=== PATIENT | female | born 1940 | race Caucasian/White ===

== ENCOUNTER 2019-12-14 00:25 | Day surgery (SDC) | payer MEDICARE, SELFPAY ==
[2019-12-12 15:14] VITALS: BMI 25.6
[2019-12-14 07:51] VITALS: BMI 25.9
--- NOTE | 2019-12-14 08:09 | PM.HPGS ---
History of Present Illness History of Present Illness Consent: Risks, benefits, and alternatives have been discussed and questions answered. Patient agrees to proceed with procedure. Chief complaint: family hx colon ca Narrative: Shavon Muñoz is a 79 year old female with family history of colon cancer [facility] Past Medical History Medical History Active asthma COPD (chronic obstructive pulmonary disease) Diabetes High blood pressure High cholesterol History of jaundice as a child Surgical History Surgical History History of carpal tunnel surgery History of surgical removal of ganglion cyst History of total right knee replacement Family History Family History Father Hypertension Family history of elevated blood lipids Family history of arthritis Family history of kidney disease Cerebrovascular accident Mother Carcinoma of colon Other Stomach cancer Other Brain cancer Other Family history of gout Family history of malignant neoplasm Family history of seizure disorder Social History Social History Smoking packs per day: 1.5 Smoking cigarettes per day: 30.0 Years smoked: 25 Smoking pack-years: 37.50 Smoking status: Heavy tobacco smoker Tobacco type: cigarettes Second hand tobacco smoke exposure: No Smoking end date: 11/02/98 Alcohol intake: never Substance use: never Substance use type: does not use Gender identity (if verbalized by the patient): Female Meds Home Medications and Allergies Home Medications Medication Instructions Recorded Confirmed Type budesonide-formoterol HFA 160 2 puff INHALATION Q12H 09/07/19 12/14/19 History mcg-4.5 mcg/actuation aerosol inhaler fluticasone propionate 50 1 spray NASAL DAILY 09/07/19 12/14/19 History mcg/actuation nasal spray,suspension montelukast 10 mg tablet 10 mg PO HS 09/07/19 12/14/19 History pravastatin 40 mg tablet 40 mg PO HS 09/07/19 12/14/19 History ciprofloxacin HCl 250 mg tablet 250 mg PO .COMPLEX #3 tablet 12/06/19 12/14/19 Rx metformin 850 mg tablet 850 mg PO BID 12/06/19 12/14/19 History albuterol sulfate [ProAir HFA] 2 puff INHALATION QID PRN 12/12/19 12/14/19 History calcium carbonate-vitamin D3 1 tablet PO BID 12/12/19 12/14/19 History [Calcium 600 + D(3)] levocetirizine 5 mg PO QAM 12/12/19 12/14/19 History kv-re-VY-vit S-jporb-ehkx-zeax 1 tablet PO DAILY 12/12/19 12/14/19 History [Ocuvite Eye Plus Multi] valsartan-hydrochlorothiazide 1 tablet PO QAM 12/12/19 12/14/19 History Allergies Allergy/AdvReac Type Severity Reaction Status Date / Time Cephalosporins Allergy Mild Unknown Verified 12/14/19 07:46 Penicillins Allergy Unknown SWELLING, Verified 12/14/19 07:46 RASH HYDROCODONE BIT AdvReac Mild IRRITABLITY Uncoded 12/14/19 07:46 Exam Resp: Auscultation: clear to auscultation bilaterally Cardio: Rate: regular rate Rhythm: regular rhythm GI: GI Palp: Yes Soft to palpation and No Tenderness to palpation present (GI) Assessment and Plan Assessment and plan (1) Screening for colon cancer: Code(s): Z12.11 - Encounter for screening for malignant neoplasm of colon Status: Acute Assessment and Plan: Colonoscopy with possible biopsy or polypectomy or cautery or injection of substances.
[2019-12-14 08:12] LABS: Glucose Point of Care 138 (65-105)
--- NOTE | 2019-12-14 08:14 | WPDANESEPPF ---
Anes - Initial Pre Proc Eval Procedure: Operation Date: 12/14/19 08:30 Proposed Procedures p Screening Colonoscopy - Doug Florentino MD Date/Time: 12/14/19 08:14 Surgeon: Doug Florentino MD Pre Op Diagnosis: family hx colon ca Patient Data Age: 79 Gender: F Height: 5 ft 6 in Weight: 73 kg Allergies Allergy/AdvReac Type Severity Reaction Status Date / Time Cephalosporins Allergy Mild Unknown Verified 12/14/19 07:46 Penicillins Allergy Unknown SWELLING, Verified 12/14/19 07:46 RASH HYDROCODONE BIT AdvReac Mild IRRITABLITY Uncoded 12/14/19 07:46 Home Medications Medication Instructions Recorded Confirmed Type budesonide-formoterol HFA 160 2 puff INHALATION Q12H 09/07/19 12/14/19 History mcg-4.5 mcg/actuation aerosol inhaler fluticasone propionate 50 1 spray NASAL DAILY 09/07/19 12/14/19 History mcg/actuation nasal spray,suspension montelukast 10 mg tablet 10 mg PO HS 09/07/19 12/14/19 History pravastatin 40 mg tablet 40 mg PO HS 09/07/19 12/14/19 History ciprofloxacin HCl 250 mg tablet 250 mg PO .COMPLEX #3 tablet 12/06/19 12/14/19 Rx metformin 850 mg tablet 850 mg PO BID 12/06/19 12/14/19 History albuterol sulfate [ProAir HFA] 2 puff INHALATION QID PRN 12/12/19 12/14/19 History calcium carbonate-vitamin D3 1 tablet PO BID 12/12/19 12/14/19 History [Calcium 600 + D(3)] levocetirizine 5 mg PO QAM 12/12/19 12/14/19 History lv-or-MJ-vit G-qjegc-gtld-zeax 1 tablet PO DAILY 12/12/19 12/14/19 History [Ocuvite Eye Plus Multi] valsartan-hydrochlorothiazide 1 tablet PO QAM 12/12/19 12/14/19 History Laboratory Tests 12/14/19 08:09 POC Capillary Glucose 138 mg/dl H mg/dl (65-105) Patient hx anesthesia problems: none Family hx anesthesia problems: none PMFSH Past Medical History Medical History Active asthma COPD (chronic obstructive pulmonary disease) Diabetes High blood pressure High cholesterol History of jaundice as a child Surgical History Surgical History History of carpal tunnel surgery History of surgical removal of ganglion cyst History of total right knee replacement Family History Family History Father Hypertension Family history of elevated blood lipids Family history of arthritis Family history of kidney disease Cerebrovascular accident Mother Carcinoma of colon Other Stomach cancer Other Brain cancer Other Family history of gout Family history of malignant neoplasm Family history of seizure disorder Social History Social History Smoking packs per day: 1.5 Smoking cigarettes per day: 30.0 Years smoked: 25 Smoking pack-years: 37.50 Smoking status: Heavy tobacco smoker Tobacco type: cigarettes Second hand tobacco smoke exposure: No Smoking end date: 11/02/98 Alcohol intake: never Substance use: never Substance use type: does not use Gender identity (if verbalized by the patient): Female Anes - Eval Final PreProcedure Day of Procedure 12/14/19 08:14 Patient weight: overweight Heart: regular rate and rhythm Airway: Mallampati scale class II Neurological: alert and oriented Last oral intake: >/= 8 hours ASA classification: III Emergent: no Anesthetic plan: proceed Anesthesia type and monitoring: general GIVS and standard monitoring Informed Consent: The patient's anesthetic plan and its attendant risks and benefits were discussed with the patient/family/POA. Questions were solicited and answers provided to the satisfaction of the patient/family/POA.
[2019-12-14] MEDS: LACTATED RINGERS 1,000 ML 150 ML IV CONT (08:24)
[2019-12-14 08:28] VITALS: BP 123/72; PULSE 66; RESP 14; O2SAT 98
[2019-12-14 09:08] VITALS: BP 109/69; PULSE 69; RESP 14; O2SAT 98
[2019-12-14 09:18] VITALS: BP 113/92; PULSE 77; RESP 14; O2SAT 98
== END 2019-12-14 09:55 | disposition home or self-care (01) ==
PROVIDERS: PCP Internal Medicine; Visit Provider Internal Medicine Gastroenterology
PROC: 0DJD8ZZ Inspection of Lower Intestinal Tract, Via Natural or Artificial Opening Endoscopic (ICD-10-PCS; CPT 45378; principal; 2019-12-14 08:30)
DX: Z12.11 Encounter for screening for malignant neoplasm of colon (principal); D12.5 Benign neoplasm of sigmoid colon; D12.0 Benign neoplasm of cecum; D12.3 Benign neoplasm of transverse colon; K64.8 Other hemorrhoids; Z80.0 Family history of malignant neoplasm of digestive organs; I10 Essential (primary) hypertension; E78.00 Pure hypercholesterolemia, unspecified; E11.9 Type 2 diabetes mellitus without complications; J44.9 Chronic obstructive pulmonary disease, unspecified; Z79.84 Long term (current) use of oral hypoglycemic drugs; F17.210 Nicotine dependence, cigarettes, uncomplicated
CPT/HCPCS: 45385; 45381; 88305; J2704; J7120

== ENCOUNTER 2020-02-08 16:27 | Emergency (ER) | payer MEDICARE, SELFPAY ==
--- NOTE | ~2020-02-08 | XR_ITS ---
XR hip RT 2V w AP pelvis 02/08/2020 16:55 Indication: Right hip pain after fall Procedure: 4 views right hip Comparison: No prior studies for comparison. Findings: Moderate osteoarthritis of the hips. There is severe lumbar spondylosis partially visualize d. No acute fracture or traumatic malalignment. Pelvic rings are intact. Sacral foramen are symmetric . Impression: 1: No acute fracture. Reviewed, dictated and finalized at location A. Impression: 1: No acute fracture.
--- NOTE | ~2020-02-08 | XR_ITS ---
XR chest 2V 02/08/2020 16:55 Indication: Right lower chest pain Procedure: 2 view chest Comparison: Comparison to multiple prior studies sequentially, with oldest reviewed study dated 05/31. Findings: Borderline heart size. There is mild pulmonary vascular indistinctness, consistent with int erstitial edema. Atypical pneumonia is less favored. No pleural effusion or pneumothorax. There is at herosclerosis. No acute osseous abnormality. Impression: 1: Coarse bilateral perihilar and basilar interstitial infiltrates, edema versus atypical pneumonia. Reviewed, dictated and finalized at location A. Impression: 1: Coarse bilateral perihilar and basilar interstitial infiltrates, edema versu s atypical pneumonia.
[2020-02-08 16:55] VITALS: BP 136/78; PULSE 89; RESP 20; TEMP 36.6; O2SAT 98
--- NOTE | 2020-02-08 17:03 | ED.FALL ---
HPI - Fall General Chief Complaint: Fall Stated Complaint: Back Pain Source: patient and RN notes reviewed Mode of arrival: ambulatory Limitations: no limitations History of Present Illness HPI Narrative: The patient, ex-smoker/nondrinker who lives independent living and uses a walker, presents with right low back pain. She states she is seen by pulmonology for CT proven interstitial lung disease, and is on several meds. Patient states she slipped and fell a couple days ago from a standing position landing on indoor furnishings. She complains of mild pain that is worse with motion, better rest, located at her right lower flank; and declines narcotic pain meds . No fever, cough, shortness of breath, calf pain/ edema, numbness/weakness, bowel-bladder symptoms, hematuria/ frequency/ dysuria, bleeding, deformity; there is radiating burning pain only down posterior thigh. She has had prior MRI of the abdomen[2017], for resulting benign renal cysts. Related Data Home Medications Medication Instructions Recorded Confirmed budesonide-formoterol HFA 160 2 puff INHALATION Q12H 09/07/19 02/08/20 mcg-4.5 mcg/actuation aerosol inhaler fluticasone propionate 50 1 spray NASAL DAILY 09/07/19 02/08/20 mcg/actuation nasal spray,suspension montelukast 10 mg tablet 10 mg PO HS 09/07/19 02/08/20 Ocuvite Eye Plus Multi 1 tablet PO DAILY 12/12/19 02/08/20 albuterol sulfate [ProAir HFA] 2 puff INHALATION QID PRN 12/12/19 02/08/20 calcium carbonate-vitamin D3 1 tablet PO BID 12/12/19 02/08/20 [Calcium 600 + D(3)] valsartan-hydrochlorothiazide 1 tablet PO QAM 12/12/19 02/08/20 Allergies Allergy/AdvReac Type Severity Reaction Status Date / Time tramadol Allergy Intermediate Itching Verified 02/13/20 08:05 Cephalosporins Allergy Mild Unknown Verified 12/14/19 07:46 Penicillins Allergy Unknown SWELLING, Verified 12/14/19 07:46 RASH HYDROCODONE BIT AdvReac Mild IRRITABLITY Uncoded 12/14/19 07:46 Review of Systems Review of Systems: Narrative: General/Constitutional: No weight loss,fever Eyes: N0: Redness,discharge Ears/Nose/Throat: No: Epistaxis,ear discharge Respiratory: Denies: Hemoptysis Gastrointestinal: No Vomiting, Bleeding-rectal Skin: No Lumps, eruption Neurologic: No Focal Weakness,Sz Hematologic: Denies: Petechiae/Purpura Psychiatric: No: Suicida ideationl All Other Systems: Reviewed and Negative PMFSH Social History Social History Smoking packs per day: 1.5 Smoking cigarettes per day: 30.0 Years smoked: 25 Smoking pack-years: 37.50 Smoking status: Heavy tobacco smoker Tobacco type: cigarettes Second hand tobacco smoke exposure: No Smoking end date: 11/02/98 Alcohol intake: never Substance use: never Substance use type: does not use Gender identity (if verbalized by the patient): Female Comments At time of signature, agree with nursing past medical, surgical, social and family history. There is no relevant family history pertinent to the presenting complaint Exam Narrative: Exam Narrative: General Appearance: Aged appearing, Well nourished EYE: PERRLA, Conjunctiva clear Ears: External ear normal Nose: Normal nose Mouth/Throat: Normal appearing, Normal lips Neck: Supple Respiratory: Airway patent, kyphoscoliotic, tender right lower ribs -posteriorly Musculoskeletal: Normal strength (no footdrop, 5/5 : EH L-FHL, gastroc-AT, no saddle weakness) Spine/Back: Paraspinal muscle tender (with mild decreased ROM;right posterior superior iliac crest) Skin: Normal color Neurological: A&O x3, CN II-XII intact, Normal reflexes (symmetric trace KJ, AJ) Psychiatric: Normal mood Course Course Emergency Course: Films visualized, interpreted by radiologist, agree, ABnormal see report Vital Signs Vital signs: Vital Signs Temperature 98 F 02/08/20 16:55 Pulse Rate 89 02/08/20 16:55 Respiratory Rate 20
== END 2020-02-08 17:35 | disposition home or self-care (01) ==
PROVIDERS: Emergency Provider Emergency Medicine; PCP Internal Medicine
DX: S20.221A Contusion of right back wall of thorax, initial encounter (principal); W01.0XXA Fall on same level from slipping, tripping and stumbling without subsequent striking against object, initial encounter; M16.11 Unilateral primary osteoarthritis, right hip; F17.210 Nicotine dependence, cigarettes, uncomplicated; E78.00 Pure hypercholesterolemia, unspecified; I10 Essential (primary) hypertension; J44.9 Chronic obstructive pulmonary disease, unspecified; K21.9 Gastro-esophageal reflux disease without esophagitis; Z96.651 Presence of right artificial knee joint
CPT/HCPCS: 71046; 73502; 73521; 99214; G0463

== ENCOUNTER 2021-03-01 14:28 | Outpatient (CLI) | payer MEDICARE, SELFPAY ==
[2021-03-01 13:35] LABS: Add Urine Microscopic? YES; Appearance Urine Clear (Clear); Bilirubin Urine Negative (Negative); Blood Urine Negative (Negative); Color Urine Straw (Yellow); Glucose Urine UA Negative (Negative); Ketones Urine Negative (Negative); Leukocyte Esterase Ur Negative LEU/UL (Negative); Nitrate Urine Negative (Negative); Protein Urine Negative (Negative); RBC Urine 0-2 /hpf (0-2); Specific Grav Ur 1.012 (1.001-1.035); Squamous Epithelial Cell Urine Occasional /hpf (Few); Urobilinogen Urine Negative mg/dL (<2.0); WBC Urine 0-3 /hpf
[2021-03-01 13:37] LABS: Alanine Aminotransferase 14 U/L (4-35); Albumin Level 4.4 g/dL (3.5-5.1); Alkaline Phosphatase 64 U/L (38-126); Anion Gap 5 mmol/L (8-16); Aspartate Amino Transferase 31 U/L (14-36); Bilirubin,Total 0.6 mg/dL (0.2-1.3); Blood Urea Nitrogen 17 mg/dL (7-17); Calcium 10.1 mg/dL (8.4-10.2); Carbon Dioxide 32 mmol/L (22-30); Chloride 100 mmol/L (98-107); Cholesterol 131 mg/dL (0-200); Estimated Glomerular Filt Rate > 60; Glucose 111 mg/dL (65-105); HDL Direct 48 mg/dL; Hemoglobin A1C 6.6 % (<5.7); Potassium 4.2 mmol/L (3.4-5.0); Sodium 137 mmol/L (137-145); Triglycerides 66 mg/dL (<150)
[2021-03-01 13:48] LABS: LDL Cholesterol Direct 68 mg/dL
[2021-03-01 14:08] LABS: Thyroid Stimulating Hormone 0.891 uIU/mL (0.465-4.680)
[2021-03-01 15:12] LABS: Free T4 Free Thyroxine 1.03 ng/mL (0.78-2.19)
[2021-03-01 16:01] LABS: Creatinine Urine 47.8 mg/dL
[2021-03-01 16:04] LABS: MALB Creatinine Ratio 13.4 mg/g (0-30); Microalbumin Urine Random 6.4 mg/L (0-16.7)
[2021-03-04 19:24] LABS: Homocysteine 9.7 umol/L (<10.4)
[2021-03-05 13:12] LABS: Vitamin D 1,25 (OH)2 Total 30 pg/mL (18-72); Vitamin D2 1,25 (OH)2 <8 pg/mL; Vitamin D3 1,25 (OH)2 30 pg/mL
== END 2021-03-01 14:29 | disposition home or self-care (01) ==
LOC: ANHLAB 14:28
PROVIDERS: PCP Internal Medicine; Visit Provider Internal Medicine
DX: E11.9 Type 2 diabetes mellitus without complications (principal); E78.5 Hyperlipidemia, unspecified; J44.9 Chronic obstructive pulmonary disease, unspecified; I10 Essential (primary) hypertension; E55.9 Vitamin D deficiency, unspecified
CPT/HCPCS: 36415; 80053; 80061; 81001; 82043; 82652; 83036; 83090; 84439; 84443

== ENCOUNTER 2021-03-22 12:18 | Outpatient (CLI) | payer MEDICARE, SELFPAY ==
--- NOTE | ~2021-03-22 | XR_ITS ---
EXAMINATION:XR cervical spine 4-5V DATE: 03/22/2021 12:42 INDICATION: Neck pain TECHNIQUE: AP and lateral in neutral, flexion, and extension views of the cervical spine are provided . COMPARISON: None FINDINGS: Alignment is normal. The odontoid is intact. No fracture is identified. The vertebral body heights are maintained. There is severe loss of intervertebral disc space height at C5-6, C6-7, and C 7-T1. No laxity is present with flexion or extension. Prevertebral soft tissues are normal. There is moderate to severe multilevel facet and uncovertebral joint osteoarthritis. Degenerative osteophytes project from the anterior endplates of multiple vertebral bodies. Rim calcifications in the left neck likely represent calcified thyroid nodules. IMPRESSION: 1. Severe cervical spondylosis without acute findings identified. Reviewed, dictated and finalized at location A.
== END 2021-03-22 12:19 | disposition home or self-care (01) ==
PROVIDERS: PCP Internal Medicine; Visit Provider Internal Medicine
DX: M54.2 Cervicalgia (principal); M47.812 Spondylosis without myelopathy or radiculopathy, cervical region
CPT/HCPCS: 72050

== ENCOUNTER → 2021-04-20 00:17 | Outpatient (CLI) | payer MEDICARE, SELFPAY ==
[2021-04-20 19:26] LABS: SARS-CoV-2 RNA PCR Negative
== END ==
PROVIDERS: PCP Internal Medicine; Visit Provider Internal Medicine Gastroenterology
DX: Z01.812 Encounter for preprocedural laboratory examination (principal); Z20.822 Contact with and (suspected) exposure to COVID-19
CPT/HCPCS: C9803; U0003; U0005

== ENCOUNTER 2021-04-24 00:54 | Day surgery (SDC) | payer MEDICARE, SELFPAY ==
[2021-04-18 14:30] VITALS: BMI 24.9
[2021-04-24 08:54] VITALS: BP 149/87; PULSE 76; RESP 18; TEMP 36.2; O2SAT 98; BMI 24.6
[2021-04-24] MEDS: LACTATED RINGERS 1,000 ML 150 ML IV CONT (09:21)
[2021-04-24 09:25] LABS: Glucose Point of Care 125 mg/dl (65-105)
--- NOTE | 2021-04-24 10:14 | WPDANESEPPF ---
Anes - Initial Pre Proc Eval Procedure: Operation Date: 04/24/21 09:45 Proposed Procedures p Screening Colonoscopy - Doug Florentino MD Date/Time: 04/24/21 10:14 Surgeon: Doug Florentino MD Pre Op Diagnosis: Hx of Colon Polyps Patient Data Age: 81 Gender: F Height: 1.65 m Weight: 67.1 kg Last Vital Signs Temp 97.1 F L 04/24/21 08:54 Pulse 76 04/24/21 08:54 Resp 18 04/24/21 08:54 BP 149/87 H 04/24/21 08:54 Pulse Ox 98 04/24/21 08:54 Allergies Allergy/AdvReac Type Severity Reaction Status Date / Time Penicillins Allergy Severe SWELLING, Verified 04/24/21 08:50 RASH tramadol Allergy Intermediate Itching Verified 04/24/21 08:50 Cephalosporins Allergy Mild Itching Verified 04/24/21 08:50 oxycodone AdvReac Irritable Verified 04/24/21 09:16 HYDROCODONE BIT AdvReac Mild IRRITABLITY Uncoded 04/24/21 08:50 Home Medications Medication Instructions Recorded Confirmed Type budesonide-formoterol HFA 160 2 puff INHALATION Q12H 09/07/19 04/24/21 History mcg-4.5 mcg/actuation aerosol inhaler albuterol sulfate [ProAir HFA] 2 puff INHALATION QID PRN 12/12/19 04/24/21 History calcium carbonate-vitamin D3 1 tablet PO BID 12/12/19 04/24/21 History [Calcium 600 + D(3)] metformin 850 mg tablet 850 mg PO BID #180 tablet 04/10/20 04/24/21 Rx valsartan 160 1 tablet PO QAM #90 tablet 04/10/20 04/24/21 Rx mg-hydrochlorothiazide 12.5 mg tablet polyethylene glycol 3350 17 17 g PO DAILY 03/01/21 04/24/21 History gram/dose oral powder fluticasone propionate 50 1 spray NASAL DAILY PRN 03/22/21 04/24/21 History mcg/actuation nasal spray,suspension levocetirizine 5 mg tablet 5 mg PO QAM #90 tablet 04/09/21 04/24/21 Rx montelukast 10 mg tablet 10 mg PO HS #90 tablet 04/12/21 04/24/21 Rx C,E,zinc,copper 28-gkhnc3l-ogd 1 cap PO DAILY 04/18/21 04/24/21 History [Ocuvite Adult 50 Plus] cholecalciferol (vitamin D3) 25 mcg PO DAILY 04/18/21 04/24/21 History [Vitamin D3] nystatin 1 applic TOPICAL BID PRN 04/18/21 04/24/21 History pravastatin 40 mg PO HS 04/18/21 04/24/21 History clindamycin HCl See Rx Instructions .ROUTE .COMPLEX 04/24/21 04/24/21 History Laboratory Tests 04/24/21 09:23 POC Capillary Glucose 125 mg/dl H mg/dl (65-105) Patient hx anesthesia problems: none Family hx anesthesia problems: none PMFSH Past Medical History Medical History Active asthma BMI 25.0-25.9,adult Cervicalgia Constipation COPD (chronic obstructive pulmonary disease) Diabetes DJD (degenerative joint disease), multiple sites Follow up High blood pressure High cholesterol History of jaundice as a child Osteopenia Polyp of colon Vitamin D deficiency Surgical History Surgical History History of carpal tunnel surgery History of surgical removal of ganglion cyst History of total right knee replacement Family History Family History Father Hypertension Family history of elevated blood lipids Family history of arthritis Family history of kidney disease Cerebrovascular accident Mother Carcinoma of colon Other Stomach cancer Other Brain cancer Other Family history of gout Family history of malignant neoplasm Family history of seizure disorder Social History Social History Smoking packs per day: 1.5 Smoking cigarettes per day: 30.0 Years smoked: 30 Smoking pack-years: 45.00 Smoking status: Former smoker Tobacco type: cigarettes Second hand tobacco smoke exposure: No Smoking end date: 11/02/98 Alcohol intake: former Substance use: never Substance use type: does not use [place] Gender identity (if verbalized by the patient): Female Spiritual care concerns: No Anes - Eval Final Pre
[2021-04-24 11:04] VITALS: BP 110/54; PULSE 70; RESP 20; O2SAT 95
[2021-04-24 11:14] VITALS: BP 110/78; PULSE 64; RESP 22; O2SAT 100
[2021-04-24 11:24] VITALS: BP 113/81; PULSE 66; RESP 18; O2SAT 100
[2021-04-24 11:24] LABS: Glucose Point of Care 113 mg/dl (65-105)
== END 2021-04-24 11:48 | disposition home or self-care (01) ==
PROVIDERS: PCP Internal Medicine; Visit Provider Internal Medicine Gastroenterology
PROC: 0DJD8ZZ Inspection of Lower Intestinal Tract, Via Natural or Artificial Opening Endoscopic (ICD-10-PCS; CPT 45378; principal; 2021-04-24 09:45)
DX: Z09 Encounter for follow-up examination after completed treatment for conditions other than malignant neoplasm (principal); D12.0 Benign neoplasm of cecum; K64.8 Other hemorrhoids; K57.30 Diverticulosis of large intestine without perforation or abscess without bleeding; K59.00 Constipation, unspecified; J44.9 Chronic obstructive pulmonary disease, unspecified; E78.00 Pure hypercholesterolemia, unspecified; E55.9 Vitamin D deficiency, unspecified; I10 Essential (primary) hypertension; M85.80 Other specified disorders of bone density and structure, unspecified site; Z79.51 Long term (current) use of inhaled steroids; Z79.84 Long term (current) use of oral hypoglycemic drugs; Z87.891 Personal history of nicotine dependence
CPT/HCPCS: 45381; 45388; 82948; 88305; J2704; J7120

== ENCOUNTER 2021-09-03 14:01 | Outpatient (CLI) | payer MEDICARE, SELFPAY ==
[2021-09-03 14:44] LABS: Basophils Percent Auto 0.3 % (0.2-1.2); Eosinophils Absolute Auto 0.1 K/mm3 (0-0.3); Eosinophils Percent Auto 1.2 % (0-4.4); Hematocrit 40.3 % (37.0-47.0); Hemoglobin 13.3 g/dL (12.0-15.0); Immature Granulocyte Absolute 0.01 K/mm3 (0.00-0.031); Immature Granulocyte Percent A 0.2 % (0-0.5); Lymphocytes Absolute Auto 2.56 K/mm3 (0.9-3.2); Lymphocytes Percent Auto 39.6 % (18.3-44.2); Mean Corpuscular Volume 96.9 fl (80-100); Mean Platelet Volume 9.3 fl (7.4-10.4); Monocytes Absolute Auto 0.5 K/mm3 (0.1-0.6); Neutrophils Absolute Auto 3.3 K/mm3 (1.3-6.7); Neutrophils Percent Auto 51.7 % (45.5-73.1); Platelet Count Result 258 k/mm3 (150-375); Red Blood Count 4.16 M/mm3 (4.2-5.4); Red Cell Distribution Width 12.6 % (11.5-14.5); White Blood Count 6.5 K/mm3 (4.5-10.0)
[2021-09-03 15:04] LABS: Alanine Aminotransferase 20 U/L (4-35); Albumin Level 4.6 g/dL (3.5-5.1); Alkaline Phosphatase 81 U/L (38-126); Anion Gap 7 mmol/L (8-16); Aspartate Amino Transferase 30 U/L (14-36); Bilirubin,Total 0.8 mg/dL (0.2-1.3); Blood Urea Nitrogen 25 mg/dL (7-17); Calcium 10.3 mg/dL (8.4-10.2); Carbon Dioxide 31 mmol/L (22-30); Chloride 103 mmol/L (98-107); Cholesterol 158 mg/dL (0-200); Estimated Glomerular Filt Rate > 60; Glucose 121 mg/dL (65-110); HDL Direct 58 mg/dL; Potassium 4.7 mmol/L (3.4-5.0); Sodium 141 mmol/L (137-145); Triglycerides 54 mg/dL (<150)
[2021-09-03 15:15] LABS: LDL Cholesterol Direct 78 mg/dL
[2021-09-03 15:18] LABS: Free T4 Free Thyroxine 1.11 ng/mL (0.78-2.19)
[2021-09-03 16:17] LABS: Hemoglobin A1C 6.4 % (<5.7)
== END 2021-09-03 14:02 | disposition home or self-care (01) ==
LOC: ANHLAB 14:05
PROVIDERS: PCP Internal Medicine; Visit Provider Internal Medicine
DX: E78.2 Mixed hyperlipidemia (principal); I10 Essential (primary) hypertension; E11.9 Type 2 diabetes mellitus without complications; Z79.899 Other long term (current) drug therapy
CPT/HCPCS: 36415; 80053; 80061; 83036; 84439; 84443; 85025

== ENCOUNTER 2023-09-17 00:47 | Day surgery (SDC) | payer MEDICARE, SELFPAY ==
[2023-09-02 14:21] VITALS: BMI 24.2
--- NOTE | 2023-09-15 13:53 | SUR.PREOP ---
Patient called regarding upcoming procedure. Reviewed preop instructions, appointment times, and procedure prep.
--- NOTE | 2023-09-16 17:05 | PM.HPGS ---
History of Present Illness History of Present Illness Consent: Risks, benefits, and alternatives have been discussed and questions answered. Patient agrees to proceed with procedure. Chief complaint: Other specified disease of esophagus Narrative: Shavon Muñoz is a 83 year old female Was using found to have thickening of the esophagus on imaging study. Recent CT scan showed mild thickening of the distal esophagus. Review of Systems Review of Systems: All systems reviewed & are unremarkable except as noted in HPI and below PMFSH Past Medical History Medical History Active asthma Bilateral carotid bruits BMI 24.0-24.9, adult BMI 25.0-25.9,adult Cervicalgia Constipation COPD (chronic obstructive pulmonary disease) Coronary artery calcification Diabetes DJD (degenerative joint disease), multiple sites Encounter for Medicare annual wellness exam Encounter for routine adult health examination without abnormal findings Esophageal thickening Follow up Hearing loss High blood pressure High cholesterol History of jaundice as a child Hx of colonic polyps Lung nodule Mild ascending aorta dilatation 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 Osteopenia Polyp of colon Pulmonary fibrosis Vision changes Vitamin B12 deficiency Vitamin D deficiency Surgical History Surgical History History of carpal tunnel surgery History of surgical removal of ganglion cyst History of total right knee replacement Family History Family History Father Hypertension Family history of elevated blood lipids Family history of arthritis Family history of kidney disease Cerebrovascular accident Mother Carcinoma of colon Other Stomach cancer Other Brain cancer Other Family history of gout Family history of malignant neoplasm Family history of seizure disorder Social History Social History Smoking packs per day: 1.5 Smoking cigarettes per day: 30.0 Years smoked: 30 Smoking pack-years: 45.00 Smoking status: Former smoker Tobacco type: cigarettes Second hand tobacco smoke exposure: No Smoking end date: 11/02/98 Alcohol intake: never Substance use: never Substance use type: does not use Lack of Transportation: YES Lack of Food: Sometimes True Current Housing: I Have Housing Concerned About Future Housing: Decline to Answer Difficulty Paying Gas/Electric Bills: No Difficulty Paying for Meds: Decline to Answer Currently Unemployed: YES Education: High School Diploma/GED Difficulty w/ Childcare or Family Care: No Living arrangements: alone Additional living arrangements comments: lives in apartment in nursing home community Gender identity (if verbalized by the patient): Female Spiritual care concerns: No Meds Home Medications and Allergies Home Medications Medication Instructions Recorded Confirmed Type budesonide-formoterol HFA 160 2 puff inhalation Q12H 09/07/19 09/17/23 History mcg-4.5 mcg/actuation aerosol inhaler (Symbicort) albuterol sulfate 90 mcg/actuation 2 puff inhalation QID PRN Dyspnea 12/12/19 09/17/23 History aerosol inhaler (ProAir HFA) polyethylene glycol 3350 17 17 g PO DAILY 03/01/21 09/17/23 History gram/dose oral powder (Miralax) fluticasone propionate 50 1 spray intranasal DAILY PRN Sinus 03/22/21 09/17/23 History mcg/actuation nasal Symptoms spray,suspension cholecalciferol (vitamin D3) 25 25 mcg PO DAILY 04/18/21 09/17/23 History mcg (1,000 unit) capsule (Vitamin D3) nystatin 100,000 unit/gram topical 1 applic topical BID PRN Rash 04/18/21 09/17/23 History cream vit C,E,zinc,copper-jhdsn8p 250 1 cap PO DAILY 04/18/21 09/17/23 History mg-lutein 5 mg-zeaxanthin 1 mg capsule (Ocuvite Adult 50 Plus) coffee extract
[2023-09-17 08:55] VITALS: BP 131/60; PULSE 67; RESP 16; TEMP 36.8; O2SAT 99; BMI 24.3
[2023-09-17] MEDS: LACTATED RINGERS 1,000 ML 150 ML IV CONT (09:20)
[2023-09-17 09:22] LABS: Glucose Point of Care 134 mg/dl (65-105)
--- NOTE | 2023-09-17 09:56 | WPDANESEPPF ---
Anes - Initial Pre Proc Eval Procedure: Operation Date: 09/17/23 10:00 Proposed Procedures p Esophagogastroduodenoscopy - Doug Florentino MD Date/Time: 09/17/23 09:56 Surgeon: Doug Florentino MD Pre Op Diagnosis: Other specified disease of esophagus Patient Data Age: 83 Gender: F Height: 1.65 m Weight: 66.4 kg Last Vital Signs Temp 98.2 F 09/17/23 08:55 Pulse 67 09/17/23 08:55 Resp 16 09/17/23 08:55 BP 131/60 09/17/23 08:55 Pulse Ox 99 09/17/23 08:55 O2 Del Method Room Air 09/17/23 08:55 Allergies Allergy/AdvReac Type Severity Reaction Status Date / Time Penicillins Allergy Severe SWELLING, Verified 09/17/23 09:05 RASH tramadol Allergy Intermediate Itching Verified 09/17/23 09:05 Cephalosporins Allergy Mild Itching Verified 09/17/23 09:05 oxycodone AdvReac Irritable Verified 09/17/23 09:05 HYDROCODONE BIT AdvReac Mild IRRITABLITY Uncoded 09/17/23 09:05 Home Medications Medication Instructions Recorded Confirmed Type budesonide-formoterol HFA 160 2 puff inhalation Q12H 09/07/19 09/17/23 History mcg-4.5 mcg/actuation aerosol inhaler (Symbicort) albuterol sulfate 90 mcg/actuation 2 puff inhalation QID PRN Dyspnea 12/12/19 09/17/23 History aerosol inhaler (ProAir HFA) polyethylene glycol 3350 17 17 g PO DAILY 03/01/21 09/17/23 History gram/dose oral powder (Miralax) fluticasone propionate 50 1 spray intranasal DAILY PRN Sinus 03/22/21 09/17/23 History mcg/actuation nasal Symptoms spray,suspension cholecalciferol (vitamin D3) 25 25 mcg PO DAILY 04/18/21 09/17/23 History mcg (1,000 unit) capsule (Vitamin D3) nystatin 100,000 unit/gram topical 1 applic topical BID PRN Rash 04/18/21 09/17/23 History cream vit C,E,zinc,copper-cdpes8o 250 1 cap PO DAILY 04/18/21 09/17/23 History mg-lutein 5 mg-zeaxanthin 1 mg capsule (Ocuvite Adult 50 Plus) coffee extract 100 mg-phosphatidyl 1 cap PO DAILY 09/03/21 09/17/23 History serine 100 mg capsule (Neuriva Original) Diabetic Shoes #1 ea 07/30/22 09/17/23 Rx dapagliflozin propaned 10 1 tablet PO DAILY #90 ea 07/13/23 09/17/23 Rx mg-metformin ER 1,000 mg tablet,ext rel 24hr (Xigduo XR) levocetirizine 5 mg tablet See Rx Instructions .Route 07/13/23 09/17/23 Rx .COMPLEX #90 tabs mecobalamin (vitamin B12) 1,000 1,000 mcg PO DAILY #90 tabs 07/13/23 09/17/23 Rx mcg chewable tablet montelukast 10 mg tablet 10 mg PO HS #90 tabs 07/13/23 09/17/23 Rx pravastatin 40 mg tablet See Rx Instructions .Route 07/13/23 09/17/23 Rx .COMPLEX #90 tabs valsartan 160 mg tablet See Rx Instructions .Route 07/13/23 09/17/23 Rx .COMPLEX #90 tabs OneTouch Ultra Test (blood sugar #100 ea 09/02/23 09/17/23 Rx diagnostic) lancets 30 gauge #100 ea 09/02/23 09/17/23 Rx betamethasone valerate 0.1 % 1 applic topical BID #45 grams 09/09/23 09/17/23 Rx topical cream calcium carbonate 600 mg-vitamin 1 tablet PO DAILY 09/09/23 09/17/23 History D3 5 mcg (200 unit) tablet (Calcium 600 + D(3)) clotrimazole 1 % topical cream 1 applic topical Q12H #45 grams 09/09/23 09/17/23 Rx Laboratory Tests 09/17/23 09:14 POC Capillary Glucose 134 H mg/dl (65-105) Patient hx anesthesia problems: none Family hx anesthesia problems: none Results Review: All pre-operative results and documents have been reviewed as part of the pre-operative evaluation. [facility] Past Medical History Medical History Active asthma Bilateral carotid bruits BMI 24.0-24.9, adult BMI 25.0-25.9,adult Cervicalgia Constipation COPD (chronic obstructive pulmonary disease) Coronary artery calcification Diabetes DJD (degenerative joint disease), multiple sites Encounter for Medicare annual wellness exam Encounter for routine adult health examination without abnormal findings Esophageal thickening Follow up Hearing loss High blood pressure High cholesterol Histo
[2023-09-17 10:02] VITALS: BP 100/59; PULSE 60; RESP 18; O2SAT 95
[2023-09-17 10:12] VITALS: BP 100/68; PULSE 66; RESP 18; O2SAT 99
[2023-09-17 10:22] VITALS: BP 109/61; PULSE 64; RESP 18; O2SAT 99
== END 2023-09-17 10:52 | disposition home or self-care (01) ==
PROVIDERS: PCP Internal Medicine; Referring Provider Internal Medicine; Visit Provider Internal Medicine Gastroenterology
PROC: 0DJ08ZZ Inspection of Upper Intestinal Tract, Via Natural or Artificial Opening Endoscopic (ICD-10-PCS; CPT 43235; principal; 2023-09-17 10:00)
DX: K21.00 Gastro-esophageal reflux disease with esophagitis, without bleeding (principal); K44.9 Diaphragmatic hernia without obstruction or gangrene; J44.9 Chronic obstructive pulmonary disease, unspecified; E11.9 Type 2 diabetes mellitus without complications; E78.00 Pure hypercholesterolemia, unspecified; I10 Essential (primary) hypertension; Z87.891 Personal history of nicotine dependence; E55.9 Vitamin D deficiency, unspecified; K59.00 Constipation, unspecified; E53.8 Deficiency of other specified B group vitamins; Z79.84 Long term (current) use of oral hypoglycemic drugs; Z79.51 Long term (current) use of inhaled steroids
CPT/HCPCS: 43239; 82948; 88305; J2704; J7120

== ENCOUNTER 2024-01-28 13:58 | Outpatient (CLI) | payer MEDICARE, SELFPAY ==
[2024-01-28 15:30] LABS: Appearance Urine Clear (Clear); Bilirubin Urine Negative (Negative); Blood Urine Negative (Negative); Color Urine Yellow (Yellow); Glucose Urine UA 3+ mg/dL (Negative); Ketones Urine Negative (Negative); Leukocyte Esterase Ur Negative LEU/UL (Negative); Nitrate Urine Negative (Negative); Protein Urine Negative (Negative); Urobilinogen Urine 0.2 mg/dL (<2.0); pH Urine 6.5 (5.0-9.0)
[2024-01-28 15:31] LABS: Basophils Percent Auto 0.3 % (0.2-1.2); Eosinophils Absolute Auto 0.1 K/mm3 (0-0.3); Eosinophils Percent Auto 0.7 % (0-4.4); Hematocrit 40.7 % (37.0-47.0); Hemoglobin 12.9 g/dL (12.0-15.0); Immature Granulocyte Absolute 0.01 K/mm3 (0.00-0.031); Immature Granulocyte Percent A 0.1 % (0-0.5); Lymphocytes Absolute Auto 2.12 K/mm3 (0.9-3.2); Lymphocytes Percent Auto 29.7 % (18.3-44.2); Mean Corpuscular HGB Conc 31.7 g/dl (32-36); Mean Corpuscular Hemoglobin 31.5 pg (26-34); Mean Corpuscular Volume 99.5 fl (80-100); Mean Platelet Volume 9.5 fl (7.4-10.4); Monocytes Absolute Auto 0.5 K/mm3 (0.1-0.6); Monocytes Percent Auto 7.1 % (2.6-8.5); Neutrophils Absolute Auto 4.4 K/mm3 (1.3-6.7); Neutrophils Percent Auto 62.1 % (45.5-73.1); Platelet Count Result 228 k/mm3 (150-375); Red Blood Count 4.09 M/mm3 (4.2-5.4); Red Cell Distribution Width 12.6 % (11.5-14.5); White Blood Count 7.2 K/mm3 (4.5-10.0)
[2024-01-28 15:32] LABS: Alanine Aminotransferase 20 U/L (6-35); Albumin Level 4.3 g/dL (3.5-5.1); Alkaline Phosphatase 69 U/L (38-126); Anion Gap 4 mmol/L (4-12); Aspartate Amino Transferase 23 U/L (14-36); Bilirubin,Total 0.8 mg/dL (0.2-1.3); Blood Urea Nitrogen 26 mg/dL (7-17); Calcium 9.9 mg/dL (8.4-10.2); Carbon Dioxide 29 mmol/L (22-30); Chloride 105 mmol/L (98-107); Cholesterol 141 mg/dL (0-200); Estimated Glomerular Filt Rate > 60; Glucose 118 mg/dL (65-110); HDL Direct 48 mg/dL; Sodium 138 mmol/L (137-145); Triglycerides 72 mg/dL (<150)
[2024-01-28 15:34] LABS: Hemoglobin A1C 6.8 % (<5.7)
[2024-01-28 15:38] LABS: Add Urine Microscopic? NO; Specific Grav Ur 1.034 (1.001-1.035)
[2024-01-28 15:44] LABS: LDL Cholesterol Direct 87 mg/dL
[2024-01-28 15:59] LABS: Thyroid Stimulating Hormone 0.905 uIU/mL (0.465-4.680)
[2024-01-28 17:40] LABS: Free T4 Free Thyroxine 1.22 ng/mL (0.78-2.19); Vitamin D 25 Hydroxy 65.6 ng/mL
== END 2024-01-28 13:59 | disposition home or self-care (01) ==
PROVIDERS: PCP Internal Medicine; Visit Provider Internal Medicine
DX: M85.80 Other specified disorders of bone density and structure, unspecified site (principal); E78.2 Mixed hyperlipidemia; E55.9 Vitamin D deficiency, unspecified; E11.9 Type 2 diabetes mellitus without complications; I10 Essential (primary) hypertension; Z79.899 Other long term (current) drug therapy
CPT/HCPCS: 36415; 80053; 80061; 81003; 82306; 83036; 84439; 84443; 85025

== ENCOUNTER 2025-01-07 16:57 | Inpatient (IN) | payer MEDICARE, SELFPAY ==
--- NOTE | ~2025-01-07 | US_ITS ---
Procedure: Duplex Doppler examination of the bilateral carotids. Indication: Carotid bruit Technique: Real time, color-flow and pulse wave Doppler examination of the bilateral carotids was performed. Findings: Gerardo scale ultrasonography of the right neck demonstrated no significant plaque. There was demonstrat ion of normal color-flow and Doppler waveforms within the right common, internal and external carotid arteries. The peak systolic velocities in the right common, internal and external carotid arteries w ere demonstrated to be 83 cm/sec, 83 cm/sec and 62 cm/sec respectively. The right ICA/CCA ratio was 1 .0.The proximal right internal carotid artery demonstrates 0% stenosis relative to the normal distal artery lumen diameter. Gerardo scale sonography of the left neck demonstrated no significant plaque. There was demonstration of normal color-flow and wave forms within the left common, internal and external carotid arteries. The peak systolic velocities in the left common, internal and external carotid arteries were demonstrate d to be 78cm/sec, 48 cm/sec and 124 cm/sec respectively. The left ICA/CCA ratio was 0.6. The proximal left internal carotid artery demonstrates 0% stenosis relative to the normal distal artery lumen yong meter. There was antegrade flow demonstrated in the bilateral vertebral arteries. Impression: No hemodynamically significant stenosis of the bilateral internal carotid arteries. Antegrade flow in the bilateral vertebral arteries. Note: The methodology used is an indirect measurement validated against a direct method (such as the NASCET criteria) that compares diameters at the stenosis to the distal ICA. Reviewed, dictated and finalized at [facility]. Impression: No hemodynamically significant stenosis of the bilateral internal carotid arter ies. Antegrade flow in the bilateral vertebral arteries. Note: The methodology used is an indirect measurement validated against a direct meth od (such as the NASCET criteria) that compares diameters at the stenosis to the distal ICA.
--- NOTE | ~2025-01-07 | XR_ITS ---
XR chest 1V Ordering provider: Armando Roa PA-C History: 84 years Female with . altered mental status . Comparison: February 08, 2020 FINDINGS: MEDIASTINUM: The cardiac silhouette is not enlarged. LUNGS: No infiltrates, effusions or pneumothorax. Bilateral interstitial changes which may indicate f ibrotic changes. Superimposed pneumonia or pneumonitis cannot be excluded. Opacity seen in the right and left midzone which may be summation shadow. Follow-up in 3 months advised. OTHER: No free air under the diaphragm. IMPRESSION: Bilateral interstitial changes suggestive of fibrotic changes. Superimposed pneumonitis and less like ly edema cannot be excluded. Vague opacity in the right and left midzone. Follow-up in 3 months is advised. Reviewed, dictated and finalized at location A. FIGHTER TYPE ONE IMPRESSION: Bilateral interstitial changes suggestive of fibrotic changes. Superimposed pne umonitis and less likely edema cannot be excluded. Vague opacity in the right and left midzone. Follow-up in 3 months is advised.
--- NOTE | ~2025-01-07 | CT_ITS ---
CT cervical spine wo con Ordering provider: Armando Roa PA-C History: . fall . Comparison: None. Technique: CT of the cervical spine was performed without contrast. Sagittal and coronal reformatted images were also obtained and reviewed. Automated exposure control and iterative reconstruction mirna hnique were employed. The dose-length product was 189.78 mGy-cm. FINDINGS: VERTEBRAE: No subluxation or acute fracture. The occipital condyles are intact. DISC SPACES: Narrowing of the disc C5-C6, C6-C7, C7-T1, T1-T2 and T2-T3. Multilevel facet joint disea se. Narrowing of the left foramina at the level of C2-C3. Bilateral narrowing of the foramina at the level of C3-C4, C4-C5, C5-C6 and C6-C7. PARASPINOUS SOFT TISSUES: Calcified lesions in both lobes of the thyroid. IMPRESSION: No acute osseous abnormality cervical spine. Multilevel degenerative disc disease. Multiple nodules in the thyroid with calcification. Further evaluation advised Reviewed, dictated and finalized at location A. K OFF BEARER
--- NOTE | ~2025-01-07 | XR_ITS ---
XR hip BI 2V w AP pelvis Ordering provider: Armando Roa PA-C History: . fall, bilateral hip pain . Comparison: None. FINDINGS: BONES: No acute fracture or dislocation. HIP JOINT SPACES: Bilateral severe osteoarthritic changes. SACROILIAC JOINT SPACES/LUMBAR SPINE: The sacroiliac joint spaces are normal. Mild degenerative barcenas es of the visualized lower lumbar spine. PUBIC SYMPHYSIS: Normal. SOFT TISSUES: Normal. IMPRESSION: No acute osseous abnormality of the bilateral hips and pelvis. Reviewed, dictated and finalized at location A. CTICIDE EXPERT
--- NOTE | ~2025-01-07 | MR_ITS ---
EXAMINATION: MR brain/brain stem wo con DATE: 01/10/2025 15:50 INDICATION: Expressive aphasia. TECHNIQUE: Magnetic resonance imaging (MRI) of the brain and brainstem was performed without intraven ous contrast. COMPARISON: Head CT 01/07/2025 FINDINGS: There are scattered areas of nonspecific increased T2-weighted signal intensity in the cere bral white matter and lucia. There is no intracranial hemorrhage, acute infarction, or abnormal intrac ranial mass lesion. The ventricles are normal in size. The orbits are normal. There is mild mucosal t hickening in the ethmoid sinuses. The mastoid air cells are normal. IMPRESSION: 1. Moderate nonspecific cerebral white matter disease and pontine disease, which likely represents ch ronic small vessel ischemic disease. Reviewed, dictated and finalized at location B. IMPRESSION: 1. Moderate nonspecific cerebral white matter disease and pontine disease, whic h likely represents chronic small vessel ischemic disease.
--- NOTE | ~2025-01-07 | CT_ITS ---
CT brain wo con Ordering provider: Armando Roa PA-C History: 84 years Female with . fall . Comparison: January 23, 2012 Technique: CT of the head without contrast. Radiation reduction technique utilized.The dose-length product was 681 mGy-cm. FINDINGS: BRAIN PARENCHYMA AND CSF SPACES: Mild leukoaraiosis and diffuse cortical atrophy. Mild atheromatous d isease. No midline shift, mass effect or hemorrhage. The brain parenchyma and CSF spaces are otherwi se normal. VISUALIZED PARANASAL SINUSES: Well aerated. MASTOIDS: Well aerated. BONES: The bones appear intact. SOFT TISSUES: Visualized nasopharynx is normal. Superficial soft tissues are normal. IMPRESSION: No acute intracranial findings. Reviewed, dictated and finalized at location A. RANCE SALES SUPERVISOR
--- NOTE | ~2025-01-07 | CT_ITS ---
CTA chest PE protocol Ordering provider: Armando Roa PA-C History: 84 years Female with . syncope, elevated troponin . Comparison: None. Technique: CT angiogram chest was performed following timed intravenous injection of contrast. Thin s lice axial images and reformatted coronal images were obtained. Three dimensional reformatted images of the chest were also obtained using a [employer] workstation. . Automated exposure control and iterati ve reconstruction technique were employed. The dose-length product was 395.23 mGy-cm. 100 mL Omnipaqu e 350 was given IV. Findings: PULMONARY ARTERIES: No pulmonary embolus. VISUALIZED THORACIC INLET: Thyroid nodules with calcification.Further evaluation is advised. MEDIASTINUM: Aorta/coronary arteries: Mild atheromatous disease. Heart/other: The heart is not enlarged. Lymph nodes: No mediastinal or hilar adenopathy. LUNGS: No pulmonary nodules or masses. No effusions. No pneumothorax. Fibrotic changes are seen in the lungs . Superimposed pneumonitis cannot be excluded. VISUALIZED UPPER ABDOMEN: sliding hiatus hernia.Bilateral renal cysts. Otherwise, the visualized uppe r abdomen is normal. MUSCULOSKELETAL: Soft tissues: The superficial soft tissues are normal. Bones: Age appropriate degenerative changes of the spine. IMPRESSION: 1. No pulmonary embolism. 2. Fibrotic changes. Superimposed pneumonitis cannot be excluded. 3. Sliding hiatus hernia. 4. Bilateral renal cysts. Reviewed, dictated and finalized at location A. UNT COLLECTOR
--- NOTE | 2025-01-07 17:04 | ECG_ITS ---
Test Date: 2025-01-07 17:05:42 Measurements Intervals [place] Rate: 84 P: 78 SC: 159 QRS: -19 QRSD: 98 T: 38 QT: 416 QTc: 492 Interpretive Statements SINUS RHYTHM WITH OCCASIONAL VENTRICULAR PREMATURE COMPLEXES WITH OCCASIONAL SUPRAVENTRICULAR PREMATURE COMPLEXES LOW QRS VOLTAGE IN LIMB LEADS NONSPECIFIC T-WAVE ABNORMALITY ABNORMAL ECG No previous ECG available for comparison Electronically Signed On 01-08-2025 07:53:41 CDT by Tushar Patel M.D.
[2025-01-07 17:07] VITALS: BP 142/97; PULSE 85; RESP 16; O2SAT 99
--- NOTE | 2025-01-07 17:21 | ED.FALL ---
HPI - Fall General Chief Complaint: Fall <Armando Roa PA-C - Last Filed: 01/07/25 19:49> Stated Complaint: FALL <Armando Roa PA-C - Last Filed: 01/07/25 19:49> Time Seen by Provider: 01/07/25 17:00 <Armando Roa PA-C - Last Filed: 01/07/25 19:49> Source: patient <Armando Roa PA-C - Last Filed: 01/07/25 19:49> Mode of arrival: EMS <Armando Roa PA-C - Last Filed: 01/07/25 19:49> Limitations: dementia <Armando Roa PA-C - Last Filed: 01/07/25 19:49> History of Present Illness HPI Narrative: This is an 84-year-old female who presents to the ED via EMS from [facility] facility for chief complaint of witnessed fall. History limited by the patient, however family is bedside. Patient's niece states that she found her at the [facility] facility this morning on the ground. She is assuming that she had a fall last night. They are concerned that she has had increasing dementia over the past year. States that she is becoming increasingly forgetful and not taking very good care herself. They were concerned that she has had a couple of falls this week. She states that the patient is in answering her phone and is often not adequately feeding herself. They called EMS today because patient was unable to get up from the ground. Patient states she has pain to the neck and bilateral hips but denies any further sites of pain. Denies chest pain, shortness of breath, fevers, nausea, vomiting. <Armando Roa PA-C - Last Filed: 01/07/25 19:49> Related Data Home Medications: Home Medications ?Medication ?Instructions ?Recorded ?Confirmed ?Last Taken ?Type albuterol sulfate 90 mcg/actuation 2 puff inhalation QID PRN Dyspnea 12/12/19 10/17/24 04/23/21 History aerosol inhaler (ProAir HFA) 2 puff polyethylene glycol 3350 17 17 g PO DAILY 03/01/21 10/17/24 04/23/21 History gram/dose oral powder (Miralax) 17 g fluticasone propionate 50 1 spray intranasal DAILY PRN Sinus 03/22/21 10/17/24 09/17/23 History mcg/actuation nasal Symptoms spray,suspension cholecalciferol (vitamin D3) 25 25 mcg PO DAILY 04/18/21 10/17/24 04/23/21 History mcg (1,000 unit) capsule (Vitamin 25 mcg D3) nystatin 100,000 unit/gram topical 1 applic topical BID PRN Rash 04/18/21 10/17/24 04/23/21 History cream 1 applic calcium 600 mg (as 1 tablet PO DAILY 09/09/23 10/17/24 Unknown History carbonate)-vitamin D3 5 mcg (200 unit) tablet (Calcium 600 + D(3)) <Armando Roa PA-C - Last Filed: 01/07/25 19:49> Allergies/Adverse Reactions: Allergies Allergy/AdvReac Type Severity Reaction Status Date / Time Penicillins Allergy Severe SWELLING, Verified 10/17/24 13:34 RASH tramadol Allergy Intermediate Itching Verified 10/17/24 13:34 Cephalosporins Allergy Mild Itching Verified 10/17/24 13:34 oxycodone AdvReac Irritable Verified 10/17/24 13:34 HYDROCODONE BIT AdvReac Mild IRRITABLITY Uncoded 10/17/24 13:34 <Armando Roa PA-C - Last Filed: 01/07/25 19:49> Review of Systems Review of Systems: All systems as dictated in HPI <Armando Roa PA-C - Last Filed: 01/07/25 19:49> [facility] Past Medical History Medical History: Medical History (Updated 01/07/25 @ 19:37 by Armando Roa PA-C) BMI 23.0-23.9, adult Esophageal thickening Pulmonary fibrosis Vitamin B12 deficiency Lung nodule Coronary artery calcification Mild ascending aorta dilatation Encounter for routine adult health examination without abnormal findings BMI 24.0-24.9, adult Hx of colonic polyps Bilateral carotid bruits Vision changes Hearing loss On shelter drug therapy Encounter for Medicare annual wellness exam Osteopenia Follow up Polyp of colon Constipation Vitamin D deficiency Cervicalgia BMI 25.0-25.9,adult DJD (degenerative joint disease), multiple sites History of jaundice as a child High cholesterol High blood pressure Diabetes COPD (chronic obstructive pulmonary disease) Active asthma <Armando Roa PA-C - Last Filed: 01/07/25 19:49> Surgical History Surgical History: Surgical History History of surgical removal of ganglion cyst History of carpal tunnel surgery History of total right knee replacement <Armando Roa PA-C - Last Filed: 01/07/25 19:49> Family History Family History: Family History Father Hypertension Family history of elevated blood lipids Family history of arthritis Family history of kidney disease Cerebrovascular accident Mother Carcinoma of colon Other Stomach cancer Other Brain cancer Other Family history of gout Family history of malignant neoplasm Family history of seizure disorder <Armando Roa PA-C - Last Filed: 01/07/25 19:49> Social History Social History: Social History Smoking packs per day: 1.5 Smoking cigarettes per day: 30.0 Years smoked: 30 Smoking pack-years: 45.00 Smoking status: Former smoker Tobacco type: cigarettes Second hand tobacco smoke exposure: No Smoking end date: 11/02/98 Alcohol intake: never Substance use: never Substance use type: does not use Lack of Transportation: YES Lack of Food: Sometimes True Current Housing: I Have Housing Concerned About Future Housing: Decline to Answer Difficulty Paying Gas/Electric Bills: No Difficulty Paying for Meds: Decline to Answer Currently Unemployed: YES Education: High School Diploma/GED Difficulty w/ Childcare or Family Care: No Living arrangements: alone Additional living arrangements comments: lives in apartment in long term community Gender identity (if verbalized by the patient): Female Spiritual care concerns: No <Armando Roa PA-C - Last Filed: 01/07/25 19:49> Exam Narrative: GENERAL: Well-appearing, well-nourished, and in no acute distress. HEAD: Normocephalic, atraumatic. EYES: PERRLA and EOMI. ENT: Nares clear, no rhinorrhea or epistaxis. Mucous membranes moist. Oropharynx without tonsillar hypertrophy exudate or other lesions. NECK: Supple. No adenopathy or masses. CHEST: No respiratory distress. Clear to auscultation. No wheezes rales or rhonchi HEART: Regular rate and rhythm. No murmur heard. Normal peripheral pulses. ABDOMEN: Soft, nontender, nondistended, normal active bowel sounds. MSK: Normal range of motion. No edema. Mild paraspinal cervical tenderness. No other midline spinal tenderness throughout. SKIN: Warm, dry, no rash. NEURO: Alert and oriented x2. Oriented to place and person. She is unsure of the year or situation. No focal deficits. Moves all 4 extremities spontaneously. PSYCH: Normal mood and affect. <Armando Roa PA-C - Last Filed: 01/07/25 19:49> Course Vital Signs Vital signs: Vital Signs Pulse Rate 85 01/07/25 17:07 Respiratory Rate 16 01/07/25 17:07 Blood Pressure 142/97 H 01/07/25 17:07 Pulse Oximetry 99 01/07/25 17:07 Pulse Rate 85 01/07/25 17:07 Respiratory Rate 16 01/07/25 17:07 Blood Pressure 142/97 H 01/07/25 17:07 Pulse Oximetry 99 01/07/25 17:07 <Armando Roa PA-C - Last Filed: 01/07/25 19:49> Vital Signs Pulse Rate 85 01/07/25 17:07 Respiratory Rate 16 01/07/25 17:07 Blood Pressure 142/97 H 01/07/25 17:07 Pulse Oximetry 99 01/07/25 17:07 Pulse Rate 85 01/07/25 17:07 Respiratory Rate 16 01/07/25 17:07 Blood Pressure 142/97 H 01/07/25 17:07 Pulse Oximetry 99 01/07/25 17:07 <Bony Graf MD - Last Filed: 01/07/25 19:52> MDM - Fall MDM Narrative Medical decision making narrative: This is a 84-year-old female who presents to the ED for chief complaint of unwitnessed fall from independent living. Vitals are normal. Exam is overall unrevealing. History is limited due to patient's ongoing likely dementia, according to family member who is bedside. Lab work shows elevated troponin of 0.065. BNP slightly elevated as well. Could be an element of heart failure causing the fall last night or this morning. CBC unremarkable except for mild elevation of white count 11.3. Urinalysis shows evidence of dehydration with ketones but no infection. Mildly hypokalemic at 3.3. CK coming back initially at 5:39 a.m.. She was given 1 L of fluids here in the ED. She has had no chest pain to indicate ACS with that elevated troponin, suspect more of a car failure related troponin. Viral swabs negative. Chest CTA: IMPRESSION: 1. No pulmonary embolism. 2. Fibrotic changes. Superimposed pneumonitis cannot be excluded. 3. Sliding hiatus hernia. 4. Bilateral renal cysts. CT head and neck negative for acute findings. Plain films of the hip and pelvis are negative for acute findings as well. Discussed the case with Janine Brennan (Hospitalist MIKAEL), recommends admission to IMU. <Armando Roa PA-C - Last Filed: 01/07/25 19:49> Lab Data Result diagrams: 01/07/25 17:24 01/07/25 17:24 <Armando Roa PA-C - Last Filed: 01/07/25 19:49> Labs: Lab Results 01/07/25 01/07/25 01/07/25 Range/Units 17:24 17:24 17:24 WBC 11.3 H (4.5-10.0) K/mm3 RBC 4.44 (4.2-5.4) M/mm3 Hgb 14.2 (12.0-15.0) g/dL Hct 42.1 (37.0-47.0) % MCV 94.8 (80-100) fl MCH 32.0 (26-34) pg MCHC 33.7 (32-36) g/dl RDW 12.2 (11.5-14.5) % Plt Count 239 (150-375) k/mm3 MPV 9.4 (7.4-10.4) fl Immature Gran % (Auto) 0.4 (0-0.5) % Neut % (Auto) 80.4 H (45.5-73.1) % Lymph % (Auto) 11.9 L (18.3-44.2) % [place] % (Auto) 7.2 (2.6-8.5) % Eos % (Auto) 0.0 (0-4.4) % Baso % (Auto) 0.1 L (0.2-1.2) % Lymph # (Auto) 1.35 (0.9-3.2) K/mm3 [place] # (Auto) 0.8 H (0.1-0.6) K/mm3 Eos # (Auto) 0.0 (0-0.3) K/mm3 Baso # (Auto) 0.0 (0.0-0.1) K/mm3 Abs Immat Gran (auto) 0.04 H (0.00-0.031) K/mm3 Absolute Neuts (auto) 9.1 H (1.3-6.7) K/mm3 Absolute Nucleated RBC 0.000 (0.0-0.012) K/mm3 Nucleated RBC % 0.0 (0.0-0.2) % PT 13.5 (11.1-14.7) Seconds INR 1.0 APTT 27.2 (22.3-36.8) Seconds Sodium 135 L (137-145) mmol/L Potassium 3.3 L (3.4-5.0) mmol/L Chloride 99 (98-107) mmol/L Carbon Dioxide 25 (22-30) mmol/L Anion Gap 11 (4-12) mmol/L BUN 13 D (7-17) mg/dL Creatinine 0.42 L (0.7-1.0) mg/dL Estim Creat Clear Calc Not Reportable Estimated GFR > 60 (59 - ) Glucose 152 H (65-110) mg/dL Calcium 9.7 (8.4-10.2) mg/dL Magnesium Cancelled 1.8 Total Bilirubin 1.9 H (0.2-1.3) mg/dL AST 35 (14-36) U/L ALT 22 (6-35) U/L Alkaline Phosphatase 115 (38-126) U/L Total Creatine Kinase Cancelled 539 H Troponin I 0.065 H* (0.000-0.034) ng/mL NT-Pro-B Natriuret Pep 1760 H (19.9-100) pg/mL Total Protein 8.0 (6.3-8.2) g/dL Albumin 4.5 (3.5-5.1) g/dL Urine Color Yellow (Yellow) Urine Appearance Clear (Clear) Urine pH 7.5 (5.0-9.0) Ur Specific [place] 1.016 (1.001-1.035) Urine Protein 2+ H (Negative) mg/dL Urine Glucose (UA) 2+ H (Negative) mg/dL Urine Ketones 2+ H (Negative) mg/dL Ur Blood (Man) 1+ H (Negative) Urine Nitrate Negative (Negative) Urine Bilirubin Negative (Negative) Urine Urobilinogen 0.2 (<2.0) mg/dL Leukocyte Esterase Rfl Negative (Negative) VENUS/UL Urine RBC 0-2 (0-2) /hpf Urine WBC 0-5 (0-3) /hpf Ur Squamous Epith Cells None seen (Few) /hpf Urine Bacteria None seen /hpf Urine Casts 0-2 Influenza A (RT-PCR) (Negative) Influenza B (RT-PCR) (Negative) RSV (RT-PCR) (Negative) SARS-CoV-2 RNA (RT-PCR) (Negative) 01/07/25 Range/Units 17:46 WBC (4.5-10.0) K/mm3 RBC (4.2-5.4) M/mm3 Hgb (12.0-15.0) g/dL Hct (37.0-47.0) % MCV (80-100) fl MCH (26-34) pg MCHC (32-36) g/dl RDW (11.5-14.5) % Plt Count (150-375) k/mm3 MPV (7.4-10.4) fl Immature Gran % (Auto) (0-0.5) % Neut % (Auto) (45.5-73.1) % Lymph % (Auto) (18.3-44.2) % [place] % (Auto) (2.6-8.5) % Eos % (Auto) (0-4.4) % Baso % (Auto) (0.2-1.2) % Lymph # (Auto) (0.9-3.2) K/mm3 [place] # (Auto) (0.1-0.6) K/mm3 Eos # (Auto) (0-0.3) K/mm3 Baso # (Auto) (0.0-0.1) K/mm3 Abs Immat Gran (auto) (0.00-0.031) K/mm3 Absolute Neuts (auto) (1.3-6.7) K/mm3 Absolute Nucleated RBC (0.0-0.012) K/mm3 Nucleated RBC % (0.0-0.2) % PT (11.1-14.7) Seconds INR APTT (22.3-36.8) Seconds Sodium (137-145) mmol/L Potassium (3.4-5.0) mmol/L Chloride (98-107) mmol/L Carbon Dioxide (22-30) mmol/L Anion Gap (4-12) mmol/L BUN (7-17) mg/dL Creatinine (0.7-1.0) mg/dL Estim Creat Clear Calc Estimated GFR (59 - ) Glucose (65-110) mg/dL Calcium (8.4-10.2) mg/dL Magnesium Total Bilirubin (0.2-1.3) mg/dL AST (14-36) U/L ALT (6-35) U/L Alkaline Phosphatase (38-126) U/L Total Creatine Kinase Troponin I (0.000-0.034) ng/mL NT-Pro-B Natriuret Pep (19.9-100) pg/mL Total Protein (6.3-8.2) g/dL Albumin (3.5-5.1) g/dL Urine Color (Yellow) Urine Appearance (Clear) Urine pH (5.0-9.0) Ur Specific [place] (1.001-1.035) Urine Protein (Negative) mg/dL Urine Glucose (UA) (Negative) mg/dL Urine Ketones (Negative) mg/dL Ur Blood (Man) (Negative) Urine Nitrate (Negative) Urine Bilirubin (Negative) Urine Urobilinogen (<2.0) mg/dL Leukocyte Esterase Rfl (Negative) VENUS/UL Urine RBC (0-2) /hpf Urine WBC (0-3) /hpf Ur Squamous Epith Cells (Few) /hpf Urine Bacteria /hpf Urine Casts Influenza A (RT-PCR) Negative (Negative) Influenza B (RT-PCR) Negative (Negative) RSV (RT-PCR) Negative (Negative) SARS-CoV-2 RNA (RT-PCR) Negative (Negative) <Armando Roa PA-C - Last Filed: 01/07/25 19:49> Lab Results 03/06/2601/07/25 01/07/25 Range/Units 17:24 17:24 17:24 WBC 11.3 H (4.5-10.0) K/mm3 RBC 4.44 (4.2-5.4) M/mm3 Hgb 14.2 (12.0-15.0) g/dL Hct 42.1 (37.0-47.0) % MCV 94.8 (80-100) fl MCH 32.0 (26-34) pg MCHC 33.7 (32-36) g/dl RDW 12.2 (11.5-14.5) % Plt Count 239 (150-375) k/mm3 MPV 9.4 (7.4-10.4) fl Immature Gran % (Auto) 0.4 (0-0.5) % Neut % (Auto) 80.4 H (45.5-73.1) % Lymph % (Auto) 11.9 L (18.3-44.2) % [place] % (Auto) 7.2 (2.6-8.5) % Eos % (Auto) 0.0 (0-4.4) % Baso % (Auto) 0.1 L (0.2-1.2) % Lymph # (Auto) 1.35 (0.9-3.2) K/mm3 [place] # (Auto) 0.8 H (0.1-0.6) K/mm3 Eos # (Auto) 0.0 (0-0.3) K/mm3 Baso # (Auto) 0.0 (0.0-0.1) K/mm3 Abs Immat Gran (auto) 0.04 H (0.00-0.031) K/mm3 Absolute Neuts (auto) 9.1 H (1.3-6.7) K/mm3 Absolute Nucleated RBC 0.000 (0.0-0.012) K/mm3 Nucleated RBC % 0.0 (0.0-0.2) % PT 13.5 (11.1-14.7) Seconds INR 1.0 APTT 27.2 (22.3-36.8) Seconds Sodium 135 L (137-145) mmol/L Potassium 3.3 L (3.4-5.0) mmol/L Chloride 99 (98-107) mmol/L Carbon Dioxide 25 (22-30) mmol/L Anion Gap 11 (4-12) mmol/L BUN 13 D (7-17) mg/dL Creatinine 0.42 L (0.7-1.0) mg/dL Estim Creat Clear Calc Not Reportable Estimated GFR > 60 (59 - ) Glucose 152 H (65-110) mg/dL Calcium 9.7 (8.4-10.2) mg/dL Magnesium Cancelled 1.8 Total Bilirubin 1.9 H (0.2-1.3) mg/dL AST 35 (14-36) U/L ALT 22 (6-35) U/L Alkaline Phosphatase 115 (38-126) U/L Total Creatine Kinase Cancelled 539 H Troponin I 0.065 H* (0.000-0.034) ng/mL NT-Pro-B Natriuret Pep 1760 H (19.9-100) pg/mL Total Protein 8.0 (6.3-8.2) g/dL Albumin 4.5 (3.5-5.1) g/dL Urine Color Yellow (Yellow) Urine Appearance Clear (Clear) Urine pH 7.5 (5.0-9.0) Ur Specific [place] 1.016 (1.001-1.035) Urine Protein 2+ H (Negative) mg/dL Urine Glucose (UA) 2+ H (Negative) mg/dL Urine Ketones 2+ H (Negative) mg/dL Ur Blood (Man) 1+ H (Negative) Urine Nitrate Negative (Negative) Urine Bilirubin Negative (Negative) Urine Urobilinogen 0.2 (<2.0) mg/dL Leukocyte Esterase Rfl Negative (Negative) VENUS/UL Urine RBC 0-2 (0-2) /hpf Urine WBC 0-5 (0-3) /hpf Ur Squamous Epith Cells None seen (Few) /hpf Urine Bacteria None seen /hpf Urine Casts 0-2 Influenza A (RT-PCR) (Negative) Influenza B (RT-PCR) (Negative) RSV (RT-PCR) (Negative) SARS-CoV-2 RNA (RT-PCR) (Negative) 01/07/25 Range/Units 17:46 WBC (4.5-10.0) K/mm3 RBC (4.2-5.4) M/mm3 Hgb (12.0-15.0) g/dL Hct (37.0-47.0) % MCV (80-100) fl MCH (26-34) pg MCHC (32-36) g/dl RDW (11.5-14.5) % Plt Count (150-375) k/mm3 MPV (7.4-10.4) fl Immature Gran % (Auto) (0-0.5) % Neut % (Auto) (45.5-73.1) % Lymph % (Auto) (18.3-44.2) % [place] % (Auto) (2.6-8.5) % Eos % (Auto) (0-4.4) % Baso % (Auto) (0.2-1.2) % Lymph # (Auto) (0.9-3.2) K/mm3 [place] # (Auto) (0.1-0.6) K/mm3 Eos # (Auto) (0-0.3) K/mm3 Baso # (Auto) (0.0-0.1) K/mm3 Abs Immat Gran (auto) (0.00-0.031) K/mm3 Absolute Neuts (auto) (1.3-6.7) K/mm3 Absolute Nucleated RBC (0.0-0.012) K/mm3 Nucleated RBC % (0.0-0.2) % PT (11.1-14.7) Seconds INR APTT (22.3-36.8) Seconds Sodium (137-145) mmol/L Potassium (3.4-5.0) mmol/L Chloride (98-107) mmol/L Carbon Dioxide (22-30) mmol/L Anion Gap (4-12) mmol/L BUN (7-17) mg/dL Creatinine (0.7-1.0) mg/dL Estim Creat Clear Calc Estimated GFR (59 - ) Glucose (65-110) mg/dL Calcium (8.4-10.2) mg/dL Magnesium Total Bilirubin (0.2-1.3) mg/dL AST (14-36) U/L ALT (6-35) U/L Alkaline Phosphatase (38-126) U/L Total Creatine Kinase Troponin I (0.000-0.034) ng/mL NT-Pro-B Natriuret Pep (19.9-100) pg/mL Total Protein (6.3-8.2) g/dL Albumin (3.5-5.1) g/dL Urine Color (Yellow) Urine Appearance (Clear) Urine pH (5.0-9.0) Ur Specific [place] (1.001-1.035) Urine Protein (Negative) mg/dL Urine Glucose (UA) (Negative) mg/dL Urine Ketones (Negative) mg/dL Ur Blood (Man) (Negative) Urine Nitrate (Negative) Urine Bilirubin (Negative) Urine Urobilinogen (<2.0) mg/dL Leukocyte Esterase Rfl (Negative) VENUS/UL Urine RBC (0-2) /hpf Urine WBC (0-3) /hpf Ur Squamous Epith Cells (Few) /hpf Urine Bacteria /hpf Urine Casts Influenza A (RT-PCR) Negative (Negative) Influenza B (RT-PCR) Negative (Negative) RSV (RT-PCR) Negative (Negative) SARS-CoV-2 RNA (RT-PCR) Negative (Negative) <Bony Graf MD - Last Filed: 01/07/25 19:52> Discharge Plan Discharge Clinical Impression: Fall, Elevated troponin <Armando Roa PA-C - Last Filed: 01/07/25 19:49> Patient Disposition: Still a Patient <Armando Roa PA-C - Last Filed: 01/07/25 19:49> Condition: Stable <Armando Roa PA-C - Last Filed: 01/07/25 19:49> Patient Language: Bulgarian <Armando Roa PA-C - Last Filed: 01/07/25 19:49> Prescriptions: No Action fluticasone propionate 50 mcg/actuation spray,suspension 1 spray NASAL DAILY PRN (Reason: Sinus Symptoms) calcium carbonate-vitamin D3 [Calcium 600 + D(3)] 600 mg-5 mcg (200 unit) tablet 1 tablet PO DAILY polyethylene glycol 3350 [Miralax] 17 gram/dose powder 17 g PO DAILY pravastatin 40 mg tablet See Rx Instructions .ROUTE .COMPLEX Qty: 90 3RF Dose Instruction: TAKE 1 TABLET AT BEDTIME Rx Instructions: TAKE 1 TABLET AT BEDTIME Symbicort 160-4.5 mcg/actuation HFA aerosol inhaler 2 puff INHALATION Q12H Qty: 10.2 5RF albuterol sulfate [ProAir HFA] 90 mcg/actuation Hfa Aerosol Inhaler 2 puff INHALATION QID PRN (Reason: Dyspnea) cholecalciferol (vitamin D3) [Vitamin D3] 25 mcg (1,000 unit) Capsule 25 mcg PO DAILY nystatin 100,000 unit/gram cream 1 applic topical BID PRN (Reason: Rash) (DME) Diabetic Shoes 10.5 See Rx Instructions .Route .MEDSUPPLY Qty: 1 0RF Rx Instructions: Needs 1 pair of diabetic shoes. mecobalamin (vitamin B12) 1,000 mcg tablet,chewable 1,000 mcg PO DAILY Qty: 90 1RF (DME) OneTouch Ultra Test Strip See Rx Instructions .Route Qty: 100 3RF Rx Instructions: Check blood sugars once per day (DME) lancets 30 gauge misc See Rx Instructions .Route Qty: 100 3RF Rx Instructions: check blood sugars once per day montelukast 10 mg tablet See Rx Instructions .ROUTE .COMPLEX Qty: 90 3RF Dose Instruction: TAKE 1 TABLET AT BEDTIME Rx Instructions: TAKE 1 TABLET AT BEDTIME (DME) OneTouch Ultra Test Strip See Rx Instructions .Route Qty: 100 3RF Rx Instructions: As directed Xigduo XR 10-1,000 mg tablet, IR - ER, biphasic 24hr See Rx Instructions .ROUTE .COMPLEX Qty: 90 1RF Dose Instruction: TAKE ONE TABLET BY MOUTH DAILY AT 9 AM Rx Instructions: TAKE ONE TABLET BY MOUTH DAILY AT 9 AM clotrimazole 1 % cream 1 applic topical Q12H Qty: 45 1RF betamethasone valerate 0.1 % cream 1 applic topical BID Qty: 45 1RF levocetirizine 5 mg tablet See Rx Instructions .ROUTE .COMPLEX Qty: 90 1RF Dose Instruction: TAKE 1 TABLET EVERY MORNING Rx Instructions: TAKE 1 TABLET EVERY MORNING valsartan 160 mg tablet See Rx Instructions .ROUTE .COMPLEX Qty: 90 3RF Dose Instruction: TAKE 1 TABLET DAILY Rx Instructions: TAKE 1 TABLET DAILY <Armando Roa PA-C - Last Filed: 01/07/25 19:49> Follow-up/Referrals: Tom Hernandez MD [Primary Care Provider] - <Armando Roa PA-C - Last Filed: 01/07/25 19:49> Attestation Supervising Provider Attestation This visit was performed by both a physician and an APC (MIKAEL Roa). I performed all aspects of the MDM as documented. <Bony Graf MD - Last Filed: 01/07/25 19:52>
[2025-01-07 17:33] LABS: Basophils Percent Auto 0.1 % (0.2-1.2); Hematocrit 42.1 % (37.0-47.0); Hemoglobin 14.2 g/dL (12.0-15.0); Immature Granulocyte Absolute 0.04 K/mm3 (0.00-0.031); Immature Granulocyte Percent A 0.4 % (0-0.5); Lymphocytes Absolute Auto 1.35 K/mm3 (0.9-3.2); Lymphocytes Percent Auto 11.9 % (18.3-44.2); Mean Corpuscular HGB Conc 33.7 g/dl (32-36); Mean Corpuscular Volume 94.8 fl (80-100); Mean Platelet Volume 9.4 fl (7.4-10.4); Monocytes Absolute Auto 0.8 K/mm3 (0.1-0.6); Monocytes Percent Auto 7.2 % (2.6-8.5); Neutrophils Absolute Auto 9.1 K/mm3 (1.3-6.7); Neutrophils Percent Auto 80.4 % (45.5-73.1); Platelet Count Result 239 k/mm3 (150-375); Red Blood Count 4.44 M/mm3 (4.2-5.4); Red Cell Distribution Width 12.2 % (11.5-14.5); White Blood Count 11.3 K/mm3 (4.5-10.0)
[2025-01-07 17:38] LABS: Add Urine Microscopic? YES; Appearance Urine Clear (Clear); Bacteria Urine None Seen /hpf; Bilirubin Urine Negative (Negative); Blood Urine 1+ (Negative); Color Urine Yellow (Yellow); Glucose Urine UA 2+ mg/dL (Negative); Ketones Urine 2+ mg/dL (Negative); Leukocyte Esterase Ur Negative LEU/UL (Negative); Nitrate Urine Negative (Negative); Non Pathogenic Casts 0-2; Protein Urine 2+ mg/dL (Negative); RBC Urine 0-2 /hpf (0-2); Specific Grav Ur 1.016 (1.001-1.035); Squamous Epithelial Cell Urine None Seen /hpf (Few); Urobilinogen Urine 0.2 mg/dL (<2.0); WBC Urine 0-5 /hpf (0-3); pH Urine 7.5 (5.0-9.0)
[2025-01-07 17:41] LABS: Alanine Aminotransferase 22 U/L (6-35); Albumin Level 4.5 g/dL (3.5-5.1); Alkaline Phosphatase 115 U/L (38-126); Anion Gap 11 mmol/L (4-12); Aspartate Amino Transferase 35 U/L (14-36); Bilirubin,Total 1.9 mg/dL (0.2-1.3); Blood Urea Nitrogen 13 mg/dL (7-17); Calcium 9.7 mg/dL (8.4-10.2); Carbon Dioxide 25 mmol/L (22-30); Chloride 99 mmol/L (98-107); Creatine Kinase 539 U/L (30-135); Estimated Glomerular Filt Rate > 60; Glucose 152 mg/dL (65-110); Magnesium 1.8 mg/dL (1.6-2.3); Potassium 3.3 mmol/L (3.4-5.0); Sodium 135 mmol/L (137-145)
[2025-01-07 17:42] LABS: Prothrombin Time 13.5 Seconds (11.1-14.7)
[2025-01-07 17:43] LABS: Partial Thromboplastin Time 27.2 Seconds (22.3-36.8)
--- OUTSIDE RECORDS SUMMARY | 2025-01-07 17:53 | XMS_ITS | Continuity of Care Document ---
Author Organization [facility] Address [address] [place] [address] Phone Care Team Providers Care Design Agent Name Role Phone Neeraj Cummings Unavailable Unavailable Procedures Procedure Date Eye Exam & Treatment Refraction Advance Directives Directive Yes / No Effective Date File Name No Information Encounters Encounter Description Practice Location Reason(s) For Visit Diagnoses Date Provider Providers Copied on Encounter [facility], [address] [place], [place], [id number], [place] tel:[phone] SEC [facility] No Information [phone] Em[address] Pickard. [address] , [address], [place], [address], [place]. tel:[phone] Family History Family Member Type Diagnosis Age At Onset No Information Payers Payer name Insurance type Covered constitution party ID Authoriza tion(s) Medicare [facility] [id number] Social History Type Description Quantity Date Captured Comments Sex Female Smoking Status No Information Chief Complaint And Reason For Visit No Information Reason For Referral Reason For Referral No Information History Of Present Illness Encounter Date Complaint History Of Prese nt Illness No Information Functional Status Date Functional Assessmen t No Information Instructions Date Instruction Additional Infor mation No Information Assessments Type Assessment Date No Information Patient Care Teams Name Effective Dates (start - stop) Status Members No Information
--- OUTSIDE RECORDS SUMMARY | 2025-01-07 17:53 | XMS_ITS | Clinical Summary ---
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 Gender Identity Not on file Sexual Orientation Not on file Plan of Treatment Health Maintenance Due Date Last Done Comments DTaP, Tdap and Td Vaccines (1 - Tdap) 1960 Zoster Vaccines (1 of 2) 1991 Annual Medicare Wellness Visit 2006 RSV Immunization or 60+ Years (1 - 1-dose 75+ series) 2016 COVID-19 Vaccine ( season) 2024 Influenza Adult (#1) 2024 11/08/2019, 07/29/2018, 08/04/2017, Additional history exists PHQ-2 (Physician [place]) 11/02/2024 Pneumococcal Vaccine: 65+ Years Completed 08/20/2018, 08/13/2017, 11/03/2013 Dexa Scan (General) Completed 03/19/2021 Meningococcal B Vaccine Aged Out No l onger eligible based on patient's age to complete this topic Meningococcal Vaccine Aged Out No ben mathew eligible based on patient's age to complete this topic RSV Immunizations Under 20 Months Aged Out No longer eligible based on patient's age to complete this topic Procedures Procedure Name Priority Date/Time Associated Diagnosis Comments BONE DENSITY/DEXA Routine 03/19/2021 10: 36 AM CDT Postmenopausal from Last 3 Months or Most Recently Relevant to Health Maintenance Results * BONE DENSITY/DEXA (03/19/2021 10:36 AM CDT) Anatomical Region Laterality Modality Bone Bone Density 03/19/2021 11:5 8 AM CDT Impressions 03/19/2021 11:59 AM CDT FINDINGS AND IMPRESSION: Examination performed on a [employer] Discovery SL .: LUMBAR SPINE L2-L4: 1. BMD: 1.269 g/cm2. 2. T score: 1.7. Previous T score: No previous available. 3. WHO classification: Above normal young adult range. 4. Fracture risk: Negligible. LEFT FEMORAL NECK: 1. BMD: 0.712 g/cm2. 2. T score: -1.2. Previous T score: No previous available. 3. WHO classification: Mild osteopenia. 4. Fracture risk: Very low. Voice recognition software utilized. Referred By: TOM ROSSI Interpreted By: Olman Santos, 03/19/2021 11:58 AM Narrative 03/19/2021 11:59 AM CDT Examination: BONE DENSITY/DEXA Exam date/time: 03/19/2021 10:25 AM Comparison studies:No previous available. Clinical history: Postmenopausal . Screening Procedure Note Olman Santos MD - 03/19/2021 Examination: BONE DENSITY/DEXA Exam date/time: 03/19/2021 10:25 AM Comparison studies:No previous available. Clinical history: Postmenopausal . Screening FINDINGS AND IMPRESSION: Examination performed on a [employer] Discovery SL .: LUMBAR SPINE L2-L4: 1. BMD: 1.269 g/cm2. 2. T score: 1.7. Previous T score: No previous available. 3. WHO classification: Above normal young adult range. 4. Fracture risk: Negligible. LEFT FEMORAL NECK: 1. BMD: 0.712 g/cm2. 2. T score: -1.2. Previous T score: No previous available. 3. WHO classification: Mild osteopenia. 4. Fracture risk: Very low. Voice recognition software utilized. Referred By: TOM ROSSI Interpreted By: Olman Santos, 03/19/2021 11:58 AM Tom Rossi MD DEXA Final Result from Last 3 Months or Most Recently Relevant to Health Maintenance Insurance [facility] Care Teams Bark Peeler Relationship Specialty Start Date End Date Tom Rossi MD PCP - General INTERNAL MEDICINE 03/19/19
--- OUTSIDE RECORDS SUMMARY | 2025-01-07 17:53 | XMS_ITS | Patient Health Summary ---
Author Organization [facility] Address [address] [address] Care Team Providers Care Personal Coach Name Role Phone Unavailable Primary Care Provider Unavailabl e Note from [facility],non-owned Affiliates and Associated Physician Practices is amultiple site organization consisting of ambulatory clinics and hospital sitesin [place], [place], [place] and [place]. This disclosure is being madepursuant to the Care Everywhere program and may not contain all information available regarding this patient. Last updated 18.[facility] Immunizations * INFLUENZA VACCINE, HIGH-DOSE, QUADR. (FLUZONE HIGH-DOSE QUADRIVALENT; 65Y+), 0.7 ML (HD-IIV4)(Given 08/27/2016) Social History Tobacco Use Types Packs/Day Years Used Date Smoking Tobacco: Never Assessed Sex and Gender Information Value Date Recorded Sex Assigned at Not on file Gender Identity Not on file Sexual Orientation Not on file
--- OUTSIDE RECORDS SUMMARY | 2025-01-07 17:53 | XMS_ITS | Clinical Summary ---
Author Organization [facility] Address [address] [place] [address] Care Team Providers Care Us Customs And Border Officer Name Role Phone Unavailable Primary Care Provider Unavailabl e Source Comments [facility],non-owned Affiliates and Associated Physician Practices is amultiple site organization consisting of ambulatory clinics and hospital sitesin [place], [place], [place] and [place]. This disclosure is being madepursuant to the Care Everywhere program and may not contain all information available regarding this patient. Last updated 18.[facility] Immunizations Name Administration Dates Next Due INFLUENZA VACCINE, HIGH-DOSE , QUADR. (FLUZONE HIGH-DOSE QUADRIVALENT; 65Y+), 0.7 ML (HD-IIV4) 08/27/2016 Social History Tobacco Use Types Packs/Day Years Used Date Smoking Tobacco: Never Assessed Sex and Gender Information Value Date Recorded Sex Assigned at Not on file Gender Identity Not on file Sexual Orientation Not on file Plan of Treatment Health Maintenance Due Date Last Done Comments BONE DENSITY TESTING 1941 MEDICARE AWV 12 MONTHS 1941 DTAP/TDAP/TD VACCINES (1 - Tdap) 1960 PNEUMOCOCCAL VACCINE 50+ (1 of 1 - PCV) 1991 ZOSTER VACCINE (1 of 2) 1991 Respiratory Syncytial Virus (RSV) Vaccine Pt: or over 60 yrs (1 - 1-dose 75+ series) 2016 COVID-19 VACCINE (2023-2 5 season) 2024 INFLUENZA VACCINE (#1) 2024 08/27/2016 DEPRESSION SCREENING 11/02/2024 HEPATITIS B VACCINE Aged Out No longe r eligible based on patient's age to complete this topic HIB VACCINE Aged Out No longer eligi ble based on patient's age to complete this topic HPV VACCINE Aged Out No longer eligi ble based on patient's age to complete this topic MENINGOCOCCAL (Group B) VACCINE Aged Out No longer eligible based on patient's age to complete this topic MENINGOCOCCAL VACCINE Aged Out No ben mathew eligible based on patient's age to complete this topic
--- OUTSIDE RECORDS SUMMARY | 2025-01-07 17:53 | XMS_ITS | CONTINUITY OF CARE DOCUMENT ---
Author Name eduar witt Address Unknown Organization [facility] Address [id number] [place] [address] [address] [place] [address] Phone [phone] Care Team Providers Care Rubber Flap Cutter Name Role Phone Javier GREGORY, Valeri Unavailable [phone] INSURANCE PROVIDERS Payer name Policy type / Coverage type Loraine red democrat ID [facility] Blue [facility] [id number] [place] Medicare [id number]
--- OUTSIDE RECORDS SUMMARY | 2025-01-07 17:53 | XMS_ITS | Encounter Summary ---
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 Gender Identity Not on file Sexual Orientation Not on file documented as of this encounter Plan of Treatment Not on file documented as of this encounter Visit Diagnoses Not on filedocumented in this encounter Additional Health Concerns Infection Onset Date Last Indicated Resolved Time COVID-19 Rule Out 07/23/2020 07/23/2020 07/24/2020 8:00 PM CDT COVID-19 Rule Out 01/19/2021 01/19/2021 01/20/2021 12:20 PM CDT documented as of this encounter Care Teams Manager Language Relationship Specialty Start Date End Date Tom Hernandez MD PCP - General INTERNAL MEDICINE 03/19/19 documented as of this encounter
--- OUTSIDE RECORDS SUMMARY | 2025-01-07 17:53 | XMS_ITS | Referral Summary ---
Author Organization [facility] Address [address] [place] [address] Care Team Providers Care Ditching Machine Operating Engineer Name Role Phone Unavailable Primary Care Provider Unavailabl e Source Comments [facility],non-owned Affiliates and Associated Physician Practices is amultiple site organization consisting of ambulatory clinics and hospital sitesin [place], [place], [place] and [place]. This disclosure is being madepursuant to the Care Everywhere program and may not contain all information available regarding this patient. Last updated 18.[facility] Immunizations Name Administration Dates Next Due INFLUENZA VACCINE, HIGH-DOSE , QUADR. (FLUZONE HIGH-DOSE QUADRIVALENT; 65Y+), 0.7 ML (HD-IIV4) 08/27/2016 Social History Tobacco Use Types Packs/Day Years Used Date Smoking Tobacco: Never Assessed Sex and Gender Information Value Date Recorded Sex Assigned at Not on file Gender Identity Not on file Sexual Orientation Not on file Plan of Treatment Not on file
[2025-01-07] MEDS: SODIUM CHLORIDE 0.9% IV 1,000 ML 999 ML IV CONT (17:54)
[2025-01-07 18:13] LABS: Troponin I 0.065 ng/mL (0.000-0.034)
[2025-01-07 18:27] LABS: Influenza A QL RT-PCR Negative (Negative); Influenza B QL RT-PCR Negative (Negative); RSV RNA, RT-PCR Negative (Negative); SARS-CoV-2 RNA PCR Negative (Negative)
[2025-01-07 18:49] LABS: NT Pro B Type Natriuretic Pept 1760 pg/mL (19.9-100)
[2025-01-07] MEDS: POTASSIUM CHLORIDE 20 MEQ PACKET (FOR LIQUID) 40 MEQ PO (18:57)
[2025-01-07 19:15] VITALS: BP 164/95; PULSE 93; RESP 16; O2SAT 95
[2025-01-07 20:00] VITALS: BP 151/99; PULSE 93; RESP 20; O2SAT 100
[2025-01-07] MEDS: SODIUM CHLORIDE 0.9% IV 1,000 ML 125 ML IV CONT (20:06)
--- NOTE | 2025-01-07 20:34 | PC.NURSE ---
Patient given sandwich, chips and water upon request. Patient has call light within reach.
--- NOTE | 2025-01-07 20:55 | PM.IMHP ---
H&P: HPI History of Present Illness Date/Time: 01/07/25 22:45 Chief Complaint: Fall. Narrative: This is an 84-year-old female with hypertension, hyperlipidemia, ascending aortic aneurysm, chronic obstructive pulmonary disease, multinodular thyroid, type 2 diabetes mellitus, and other comorbidities who presented to the emergency department via EMS from her assisted facility for evaluation after a fall. The patient is unable to provide an accurate history and a majority the following is obtained via a review her EMS as well as information provided by her niece. Niece went to visit the patient today and found her on lying the ground and presumes the patient had a fall sometime overnight although the patient is unable to say when or how she ended up on the floor. Niece reports that the patient is becoming increasingly forgetful and is not taking care of herself very well. It is my understanding that she has had several falls the last several weeks. She is forgetting to eat at times and is not good at answering the phone any longer. Niece believes that she will need assisted living or memory care. There are no reports of fever, flu symptoms, vomiting, or diarrhea. At the time my evaluation the patient is confused to situation and voices no complaints. She denies headache, chest pain, shortness a breath, abdominal pain, nausea, vomiting, diarrhea, and dysuria. She also denies vertigo, visual changes, numbness and tingling, and focal weakness. In the ED: Vital signs were stable on arrival with a blood pressure of 142/97. Labs are significant for WBC count of 11.3, sodium 135, potassium 3.3, creatinine 0.42, glucose 152, total CK 539, troponin 0.065, proBNP 1760. Urinalysis was positive for 2+ protein, 2+ glucose, 2+ ketones, 1+ blood. Respiratory panel was negative. Head and cervical spine CTs were without acute findings. Multiple nodules noted in the thyroid with calcifications for which she is being monitored closely as an outpatient. Chest CTA was negative for PE. Hip and pelvis x-rays were without acute findings. She was given potassium chloride 40 mEq and 1 L normal saline and she is being admitted in this setting for further workup of elevated troponin and probable placement higher level of care. Review of Systems Review of Systems: Unable to obtain accurately given her dementia. [facility] Past Medical History Medical History (Updated 01/08/25 @ 03:03 by Janine Brennan PA-C) Interstitial lung disease Multinodular thyroid Multinodular thyroid Chronic obstructive pulmonary disease Degenerative joint disease Type 2 diabetes mellitus Hyperlipidemia Hypertension Pulmonary fibrosis Vitamin B12 deficiency Lung nodule Coronary artery calcification Mild ascending aorta dilatation Bilateral carotid bruits Hearing loss Osteopenia Polyp of colon Vitamin D deficiency Surgical History Surgical History (Updated 01/08/25 @ 01:41 by Janine Brennan PA-C) History of tonsillectomy History of open reduction and internal fixation (ORIF) procedure repair of right wrist fracture History of surgical removal of ganglion cyst History of carpal tunnel surgery History of total right knee replacement Family History Family History Father Hypertension Family history of elevated blood lipids Family history of arthritis Family history of kidney disease Cerebrovascular accident Mother Carcinoma of colon Other Stomach cancer Other Brain cancer Other Family history of gout Family history of malignant neoplasm Family history of seizure disorder Social History Social History (Updated 01/08/25 @ 01:51 by Janine Brennan PA-C) Social History: Surrogate medical decision maker: Taurus Delarosa, sibling ([phone]). Code status: Full code. Smoking packs per day: 1.5 Smoking cigarettes per day: 30.0 Years smoked: 30 Smoking pack-years: 45.00 Smoking status: Former smoker Tobacco type: cigarettes Second hand tobacco smoke exposure: No Smoking end date: 11/02/98 Alcohol intake: never Substance use: never Substance use type: does not use Lack of Transportation: YES Lack of Food: Sometimes True Current Housing: I Have Housing Concerned About Future Housing: Decline to Answer Difficulty Paying Gas/Electric Bills: No Difficulty Paying for Meds: Decline to Answer Currently Unemployed: YES Education: High School Diploma/GED Difficulty w/ Childcare or Family Care: No Living arrangements: alone Additional living arrangements comments: lives in an apartment in a intermediate community Spiritual care concerns: No Meds Home Medications and Allergies Home Medications ?Medication ?Instructions ?Recorded ?Confirmed ?Type albuterol sulfate 90 mcg/actuation 2 puff inhalation QID PRN Dyspnea 12/12/19 10/17/24 History aerosol inhaler (ProAir HFA) polyethylene glycol 3350 17 17 g PO DAILY 03/01/21 10/17/24 History gram/dose oral powder (Miralax) fluticasone propionate 50 1 spray intranasal DAILY PRN Sinus 03/22/21 10/17/24 History mcg/actuation nasal Symptoms spray,suspension cholecalciferol (vitamin D3) 25 25 mcg PO DAILY 04/18/21 10/17/24 History mcg (1,000 unit) capsule (Vitamin D3) nystatin 100,000 unit/gram topical 1 applic topical BID PRN Rash 04/18/21 10/17/24 History cream Diabetic Shoes #1 ea 07/30/22 10/17/24 Rx mecobalamin (vitamin B12) 1,000 1,000 mcg PO DAILY #90 tabs 07/13/23 10/17/24 Rx mcg chewable tablet OneTouch Ultra Test (blood sugar #100 ea 09/02/23 10/17/24 Rx diagnostic) calcium 600 mg (as 1 tablet PO DAILY 09/09/23 10/17/24 History carbonate)-vitamin D3 5 mcg (200 unit) tablet (Calcium 600 + D(3)) lancets 30 gauge #100 ea 12/24/23 10/17/24 Rx blood sugar diagnostic (OneTouch #100 ea 02/24/24 10/17/24 Rx Ultra Test strips) montelukast 10 mg tablet See Rx Instructions .Route 02/24/24 10/17/24 Rx .COMPLEX #90 tabs dapagliflozin propaned 10 See Rx Instructions .Route 07/22/24 10/17/24 Rx mg-metformin ER 1,000 mg .COMPLEX #90 tabs tablet,ext rel 24hr (Xigduo XR) clotrimazole 1 % topical cream 1 applic topical Q12H #45 grams 07/26/24 10/17/24 Rx betamethasone valerate 0.1 % 1 applic topical BID #45 grams 08/14/24 10/17/24 Rx topical cream levocetirizine 5 mg tablet See Rx Instructions .Route 08/26/24 10/17/24 Rx .COMPLEX #90 tabs valsartan 160 mg tablet See Rx Instructions .Route 09/14/24 10/17/24 Rx .COMPLEX #90 tabs budesonide-formoterol HFA 160 2 puff inhalation Q12H #10.2 grams 10/17/24 10/17/24 Rx mcg-4.5 mcg/actuation aerosol inhaler (Symbicort) pravastatin 40 mg tablet See Rx Instructions .Route 10/17/24 10/17/24 Rx .COMPLEX #90 tabs Allergies Allergy/AdvReac Type Severity Reaction Status Date / Time Penicillins Allergy Severe SWELLING, Verified 10/17/24 13:34 RASH tramadol Allergy Intermediate Itching Verified 10/17/24 13:34 Cephalosporins Allergy Mild Itching Verified 10/17/24 13:34 oxycodone AdvReac Irritable Verified 10/17/24 13:34 HYDROCODONE BIT AdvReac Mild IRRITABLITY Uncoded 10/17/24 13:34 Vital Signs Vital Signs - 24 hr 01/07/25 17:07 01/07/25 19:15 01/07/25 20:00 Pulse Rate 85 93 93 Respiratory Rate 16 16 20 Blood Pressure 142/97 H 164/95 H 151/99 H Pulse Oximetry 99 95 100 Oxygen Delivery Room Air Room Air Exam Narrative: General: Well-developed, nontoxic-appearing elderly female in the semi-Eagle position in bed in no acute distress. She is good spirits. Weight: 62.8 kg. HEENT: Normocephalic, atraumatic. PERRL, EOMI. Sclera anicteric. Edentulous. Oral mucosa moist. Oropharynx clear. Neck: Supple. Faint carotid bruits. Respiratory: Respirations are nonlabored. Lung sounds are a bit coarse at the bases but otherwise clear to auscultation. Cardiovascular: Regular rate and rhythm with S1-S2. Gastrointestinal: Abdomen is soft, nontender, and nondistended with positive bowel sounds. Skin: Warm and dry. Extremities: No cyanosis, clubbing, or significant edema. Radial and pedal pulses intact. Neurological: Alert to name, age, and date of . She is aware that she is at the hospital but cannot provide me in 1 situation. Unable to tell me the current year. Cranial nerves 2-12 are grossly intact. No facial asymmetry. Words are clear however her speech is garbled. At time she is able to answer yes and no questions appropriately and at other times she answers inappropriately. 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 No pronator drift. No gross focal deficits casual conversations. Psychiatric: Pleasantly confused and cooperative. H&P: Results Labs Labs: Short CBC 01/07/25 Range/Units 17:24 WBC 11.3 H (4.5-10.0) K/mm3 Hgb 14.2 (12.0-15.0) g/dL Hct 42.1 (37.0-47.0) % Plt Count 239 (150-375) k/mm3 BMP 01/07/25 17:24 Sodium 135 L Potassium 3.3 L Chloride 99 Carbon Dioxide 25 BUN 13 D Creatinine 0.42 L Glucose 152 H Calcium 9.7 Cardiac Enzymes 01/07/25 01/07/25 Range/Units 17:24 17:24 Total Creatine Kinase Cancelled 539 H Troponin I 0.065 H* (0.000-0.034) ng/mL Liver Function 01/07/25 Range/Units 17:24 Total Bilirubin 1.9 H (0.2-1.3) mg/dL AST 35 (14-36) U/L ALT 22 (6-35) U/L Alkaline Phosphatase 115 (38-126) U/L Albumin 4.5 (3.5-5.1) g/dL Urine 01/07/25 Range/Units 17:24 Urine Color Yellow (Yellow) Urine Appearance Clear (Clear) Urine pH 7.5 (5.0-9.0) Ur Specific Perkins 1.016 (1.001-1.035) Urine Protein 2+ H (Negative) mg/dL Urine Glucose (UA) 2+ H (Negative) mg/dL Impressions Head CT 01/07/25 17:47 IMPRESSION: No acute intracranial findings. Cervical Spine CT 01/07/25 17:52 IMPRESSION: No acute osseous abnormality cervical spine. Multilevel degenerative disc disease. Multiple nodules in the thyroid with calcification. Further evaluation advised Chest X-Ray 01/07/25 18:20 IMPRESSION: Bilateral interstitial changes suggestive of fibrotic changes. Superimposed pneumonitis and less likely edema cannot be excluded. Vague opacity in the right and left midzone. Follow-up in 3 months is advised. Hip/Pelvis X-Ray 01/07/25 18:24 IMPRESSION: No acute osseous abnormality of the bilateral hips and pelvis. Chest CTA 01/07/25 18:41 IMPRESSION: 1. No pulmonary embolism. 2. Fibrotic changes. Superimposed pneumonitis cannot be excluded. 3. Sliding hiatus hernia. 4. Bilateral renal cysts. Assessment and Plan Assessment and plan (1) Elevated troponin: Code(s): R79.89 - Other specified abnormal findings of blood chemistry Status: Acute (2) Unwitnessed fall: Code(s): R29.6 - Repeated falls Status: Acute (3) Expressive aphasia: Code(s): R47.01 - Aphasia Status: Acute (4) Elevated creatine kinase: Code(s): R74.8 - Abnormal levels of other serum enzymes Status: Acute (5) Hypokalemia: Code(s): E87.6 - Hypokalemia Status: Acute (6) Dementia: Code(s): F03.90 - Unspecified dementia, unspecified severity, without behavioral disturbance, psychotic disturbance, mood disturbance, and anxiety Status: Acute (7) Hypertension: Code(s): I10 - Essential (primary) hypertension Status: Acute (8) Hyperlipidemia: Code(s): E78.5 - Hyperlipidemia, unspecified Status: Acute (9) Multinodular thyroid: Code(s): E04.2 - Nontoxic multinodular goiter Status: Acute (10) Type 2 diabetes mellitus: Code(s): E11.9 - Type 2 diabetes mellitus without complications Status: Acute (11) Chronic obstructive pulmonary disease: Code(s): J44.9 - Chronic obstructive pulmonary disease, unspecified Status: Acute (12) Interstitial lung disease: Code(s): J84.9 - Interstitial pulmonary disease, unspecified Status: Acute Plan The patient presented to the emergency department via EMS from her assisted apartment for evaluation after an unwitnessed fall as detailed in HPI. Labs, imaging, EKG, and all reports were personally reviewed. Family members report that the patient has become increasingly confused and does not seem to be taking very good care of herself. They are afraid that she may need higher level of care and care coordination has been consulted to discuss possible assisted living or memory care. The patient's speech is quite garbled and I think we need to rule out CVA. Brain MRI has been ordered as well as carotid Doppler ultrasounds as she does have faint bruits. An echocardiogram has also been ordered and she is being monitored on telemetry overnight. Troponin was mildly elevated and although EKG did not show any concerning ST segment changes, they will be trended to peak. Creatinine kinase is a bit elevated, not surprising as she has probably been on the floor of her apartment since sometime overnight. She was started on IV fluids in the ED and we will continue with those pending a repeat CK level in the morning to ensure the level is not increasing significantly. Potassium will be replaced and monitored. Blood pressures have been reasonable. She was followed closely for her multinodular thyroid gland which has been stable and she opted not to pursue any further workup. Continue oral diabetic medications and initiate sliding scale insulin, Accu-Cheks, and hypoglycemic protocol. No acute issues with regards her COPD. Her home medications will be reviewed and resumed as appropriate. Findings and treatment plan were discussed with the patient. Questions were solicited and answered to satisfaction. The patient's medical management will be taken over by the hospitalist team in a.m. Quality VTE Prophylaxis VTE prophylaxis: pharmacologic ordered The patient has been admitted under observation status. Hospitalist MIPS Advance Care Plan I have confirmed that the patient's Advanced Care Plan is present, code status is documented, or surrogate decision maker is listed in patient medical record.: Yes Medication Reconciliation I have utilized all available resources to obtain, update and review the patients current medications (includes all prescriptions, OTC, herbals, cannabis, and nutritional supplements).: Yes
[2025-01-07 21:26] VITALS: BP 155/88; PULSE 85; RESP 20; TEMP 36.3; O2SAT 100
--- NOTE | 2025-01-07 21:51 | ADMGEN ---
This patient, Shavon Muñoz, was admitted to IMU Room 204-01. Patient/family oriented to hospital policies and general routines including ID bracelet, bed and alarms, visiting hours, pain management, procedures, bathroom and other care routines, personal items, smoking policy, room service/diet, and visiting hours. Information on how to activate the Rapid Response Team has been discussed. Patient/Family are encouraged to report perceived risks to care and to ask questions if they do not understand what they are told or what they should do.
[2025-01-07 21:55] VITALS: PULSE 85; RESP 20; O2SAT 100
[2025-01-07 22:00] VITALS: PULSE 94
[2025-01-08] VITALS (9 sets, daily range): BP systolic 111–155; BP diastolic 67–89; PULSE 82–101; RESP 16–20; TEMP 36.2–37.6; O2SAT 96–100
--- NOTE | 2025-01-08 03:06 | PC.NURSE ---
Daylight Savings Time For Daylight Savings Time Ending in the Fall - Clocks are moved back. For Daylight Savings Time Beginning in the Spring - Clocks are moved ahead. For [facility], the time of change occurs at 0200 hrs. Time is taken from the fast food server. This entry on the patient's chart recognizes the change in time reflected during documentation. Example: 2 entries for vital signs may be charted for 0200 hrs.
[2025-01-08 03:59] LABS: Cholesterol 158 mg/dL (0-200); Creatine Kinase 605 U/L (30-135); HDL Direct 51 mg/dL; Triglycerides 71 mg/dL (<150)
[2025-01-08 04:03] LABS: Hemoglobin A1C 6.5 % (<5.7)
[2025-01-08 04:10] LABS: LDL Cholesterol Direct 89 mg/dL
[2025-01-08 04:18] LABS: Troponin I 0.097 ng/mL (0.000-0.034)
[2025-01-08] MEDS: ENOXAPARIN 40 MG/0.4 ML SYRINGE SUB-Q (08:40)
[2025-01-08] MEDS: SODIUM CHLORIDE 0.9% IV 1,000 ML 125 ML IV CONT ×3 (08:43→23:39)
[2025-01-08 08:52] LABS: Glucose Point of Care 133 mg/dl (65-105)
[2025-01-08 11:46] LABS: Glucose Point of Care 271 mg/dl (65-105)
[2025-01-08] MEDS: INSULIN ASPART (*BKC) 100 UNITS/ML SUB-Q (12:01)
--- NOTE | 2025-01-08 13:43 | PM.IMPN ---
Progress Note: A&P Assessment and Plan (1) Elevated troponin: Code(s): R79.89 - Other specified abnormal findings of blood chemistry Status: Acute Assessment and Plan: Elevated troponin levels ? secondary to rhabdo order ECHO to review (2) Unwitnessed fall: Code(s): R29.6 - Repeated falls Status: Acute Assessment and Plan: PT/ OT Pt appears very weak may benefit from AR (3) Expressive aphasia: Code(s): R47.01 - Aphasia Status: Acute Assessment and Plan: speech appears improving MRI brain ordered to rule out stroke check carotids improved with hydration (4) Elevated creatine kinase: Code(s): R74.8 - Abnormal levels of other serum enzymes Status: Acute Assessment and Plan: rhabdo continue to monitor CK (5) Hypokalemia: Code(s): E87.6 - Hypokalemia Status: Acute Assessment and Plan: watch bmp (6) Dementia: Code(s): F03.90 - Unspecified dementia, unspecified severity, without behavioral disturbance, psychotic disturbance, mood disturbance, and anxiety Status: Acute Assessment and Plan: Chronic state Pt will benefit from dementia medications (7) Hypertension: Code(s): I10 - Essential (primary) hypertension Status: Acute Assessment and Plan: Watch bp (8) Hyperlipidemia: Code(s): E78.5 - Hyperlipidemia, unspecified Status: Acute Assessment and Plan: chronic condition (9) Multinodular thyroid: Code(s): E04.2 - Nontoxic multinodular goiter Status: Acute Assessment and Plan: order tsh t4 (10) Type 2 diabetes mellitus: Code(s): E11.9 - Type 2 diabetes mellitus without complications Status: Acute Assessment and Plan: accuchecks SSI watch sugars (11) Chronic obstructive pulmonary disease: Code(s): J44.9 - Chronic obstructive pulmonary disease, unspecified Status: Acute (12) Interstitial lung disease: Code(s): J84.9 - Interstitial pulmonary disease, unspecified Status: Acute Subjective Date/time seen: 01/08/25 13:43 Interval history: 84-year-old female with hypertension, hyperlipidemia, ascending aortic aneurysm, chronic obstructive pulmonary disease, multinodular thyroid, type 2 diabetes mellitus, and other comorbidities who presented to the emergency department via EMS from her snf facility for evaluation after a fall. The patient is unable to provide an accurate history and a majority the following is obtained via a review her EMS as well as information provided by her niece. Niece went to visit the patient today and found her on lying the ground and presumes the patient had a fall sometime overnight although the patient is unable to say when or how she ended up on the floor. Niece reports that the patient is becoming increasingly forgetful and is not taking care of herself very well. It is my understanding that she has had several falls the last several weeks. She is forgetting to eat at times and is not good at answering the phone any longer. Niece believes that she will need assisted living or memory care. Pt admitted with fall elevated trop and CK Pt has dementia pt still very weak will order echo and cardiology consult Can transfer off imu Review of Systems Review of Systems: confusion weakness frail Exam Narrative: General: Chronically ill very confused Respiratory: Clear lung prakash Cardiovascular: Regular rate and rhythm with S1-S2. Gastrointestinal: Abdomen is soft, nontender, and nondistended with positive bowel sounds. Skin: Warm and dry. Extremities: No cyanosis, clubbing, or significant edema. Radial and pedal pulses intact. Neurological: No gross focal deficits casual conversations. Psychiatric: Pleasantly confused and cooperative. Objective Data Vital Signs Vital Signs: Vital Signs - 24 hr 01/07/25 17:07 01/07/25 19:15 01/07/25 20:00 Temperature Pulse Rate 85 93 93 Respiratory Rate 16 16 20 Blood Pressure 142/97 H 164/95 H 151/99 H Pulse Oximetry 99 95 100 Oxygen Delivery Room Air Room Air 01/07/25 21:26 01/07/25 21:55 01/07/25 22:00 Temperature 36.3 C L Pulse Rate 85 85 94 Respiratory Rate 20 20 Blood Pressure 155/88 H Pulse Oximetry 100 100 Oxygen Delivery Room Air 01/08/25 00:00 01/08/25 00:00 01/08/25 00:00 Temperature 36.6 C Pulse Rate 97 101 H 101 H Respiratory Rate 18 18 Blood Pressure 155/81 H Pulse Oximetry 97 97 Oxygen Delivery Room Air 01/08/25 03:00 01/08/25 04:00 01/08/25 04:00 Temperature Pulse Rate 98 88 88 Respiratory Rate 18 Blood Pressure Pulse Oximetry 97 Oxygen Delivery Room Air 01/08/25 04:00 01/08/25 06:00 01/08/25 07:41 Temperature 37.6 C 36.6 C Pulse Rate 90 100 91 Respiratory Rate 20 16 Blood Pressure 148/81 H 143/89 H Pulse Oximetry 97 100 Oxygen Delivery 01/08/25 08:00 01/08/25 08:00 01/08/25 10:00 Temperature Pulse Rate 91 89 98 Respiratory Rate 16 Blood Pressure Pulse Oximetry 100 Oxygen Delivery Room Air 01/08/25 11:54 Temperature 36.4 C Pulse Rate 90 Respiratory Rate 18 Blood Pressure 111/67 Pulse Oximetry 97 Oxygen Delivery Intake/Output Intake/Output: Intake & Output 01/05/25 01/06/25 01/07/25 01/09/25 23:59 23:59 23:59 00:59 Intake Total 1000 1752.5 Output Total 400 250 Balance 600 1502.5 Meds/Results Medications: Active Medications Generic Name Dose Route Start Last Admin Trade Name Freq PRN Reason Stop Dose Admin Acetaminophen 650 mg 01/08/25 01:46 Acetaminophen 325 Mg Tablet PO Q6H PRN Mild Pain (1-3) or Fever Dextrose 12.5 gm 01/08/25 01:47 Dextrose 50% 25 Gm/50 Ml Syringe IV PUSH PRN PRN Hypoglycemia Protocol Enoxaparin Sodium 40 mg 01/08/25 09:00 01/08/25 08:40 Enoxaparin 40 Mg/0.4 Ml Syringe SUB-Q 40 mg DAILY GORDO Administration Glucagon 1 mg 01/08/25 01:47 Glucagon For Inj 1 Mg Vial IM PRN PRN Hypoglycemia Protocol Glucose 15 gm 01/08/25 01:47 Glucose Oral Gel 15 Gm Of Glucse In 37.5 Gm Tube PO PRN PRN Hypoglycemia Protocol Sodium Chloride 1,000 mls @ 100 mls/hr 01/07/25 19:35 01/08/25 12:01 Normal Saline Iv IV CONT 125 mls/hr .Q10H GORDO Administration Dextrose 1,000 mls @ 100 mls/hr 01/08/25 01:47 Dextrose 5% 1,000 Ml IVPB PRN PRN Hypoglycemia Protocol Insulin Aspart 2 - 5 units 01/08/25 08:00 01/08/25 12:01 Insulin Aspart (*Bkc) 100 Units/Ml SUB-Q 3 units TIDWM GORDO Administration Protocol Insulin Aspart 1 - 2 units 01/08/25 21:00 Insulin Aspart (*Bkc) 100 Units/Ml SUB-Q HS GORDO Protocol Perflutren Lipid Microsphere 0 ml 01/08/25 01:46 Perflutren Lipid Microspheres 1.5 Ml Vial Diluted To 10 Ml Total Volume IV PUSH 01/11/25 01:46 ONCE PRN adequate visualization Protocol Radiology Results: ITS Impressions Head CT 01/07/25 17:47 IMPRESSION: No acute intracranial findings. Cervical Spine CT 01/07/25 17:52 IMPRESSION: No acute osseous abnormality cervical spine. Multilevel degenerative disc disease. Multiple nodules in the thyroid with calcification. Further evaluation advised Chest X-Ray 01/07/25 18:20 IMPRESSION: Bilateral interstitial changes suggestive of fibrotic changes. Superimposed pneumonitis and less likely edema cannot be excluded. Vague opacity in the right and left midzone. Follow-up in 3 months is advised. Hip/Pelvis X-Ray 01/07/25 18:24 IMPRESSION: No acute osseous abnormality of the bilateral hips and pelvis. Chest CTA 01/07/25 18:41 IMPRESSION: 1. No pulmonary embolism. 2. Fibrotic changes. Superimposed pneumonitis cannot be excluded. 3. Sliding hiatus hernia. 4. Bilateral renal cysts. Carotid Doppler Study 01/08/25 12:28 Impression: No hemodynamically significant stenosis of the bilateral internal carotid arteries. Antegrade flow in the bilateral vertebral arteries. Note: The methodology used is an indirect measurement validated against a direct method (such as the NASCET criteria) that compares diameters at the stenosis to the distal ICA. Labs Labs: Laboratory Results - last 24 hr 01/07/25 01/07/25 01/07/25 17:24 17:24 17:24 WBC 11.3 H RBC 4.44 Hgb 14.2 Hct 42.1 MCV 94.8 MCH 32.0 MCHC 33.7 RDW 12.2 Plt Count 239 MPV 9.4 Immature Gran % (Auto) 0.4 Neut % (Auto) 80.4 H Lymph % (Auto) 11.9 L [place] % (Auto) 7.2 Eos % (Auto) 0.0 Baso % (Auto) 0.1 L Lymph # (Auto) 1.35 [place] # (Auto) 0.8 H Eos # (Auto) 0.0 Baso # (Auto) 0.0 Abs Immat Gran (auto) 0.04 H Absolute Neuts (auto) 9.1 H Absolute Nucleated RBC 0.000 Nucleated RBC % 0.0 PT 13.5 INR 1.0 APTT 27.2 Sodium 135 L Potassium 3.3 L Chloride 99 Carbon Dioxide 25 Anion Gap 11 BUN 13 D Creatinine 0.42 L Estim Creat Clear Calc Not Reportable Estimated GFR > 60 Glucose 152 H POC Capillary Glucose Hemoglobin A1c Calcium 9.7 Magnesium Cancelled 1.8 Total Bilirubin 1.9 H AST 35 ALT 22 Alkaline Phosphatase 115 Total Creatine Kinase Cancelled 539 H Troponin I 0.065 H* NT-Pro-B Natriuret Pep 1760 H Total Protein 8.0 Albumin 4.5 Triglycerides Cholesterol LDL Cholesterol Direct HDL Direct TSH (Reflex) Urine Color Yellow Urine Appearance Clear Urine pH 7.5 Ur Specific [place] 1.016 Urine Protein 2+ H Urine Glucose (UA) 2+ H Urine Ketones 2+ H Ur Blood (Man) 1+ H Urine Nitrate Negative Urine Bilirubin Negative Urine Urobilinogen 0.2 Leukocyte Esterase Rfl Negative Urine RBC 0-2 Urine WBC 0-5 Ur Squamous Epith Cells None seen Urine Bacteria None seen Urine Casts 0-2 Influenza A (RT-PCR) Influenza B (RT-PCR) RSV (RT-PCR) SARS-CoV-2 RNA (RT-PCR) 01/07/25 01/08/25 01/08/25 17:46 03:44 03:44 WBC RBC Hgb Hct MCV MCH MCHC RDW Plt Count MPV Immature Gran % (Auto) Neut % (Auto) Lymph % (Auto) [place] % (Auto) Eos % (Auto) Baso % (Auto) Lymph # (Auto) [place] # (Auto) Eos # (Auto) Baso # (Auto) Abs Immat Gran (auto) Absolute Neuts (auto) Absolute Nucleated RBC Nucleated RBC % PT INR APTT Sodium Potassium Chloride Carbon Dioxide Anion Gap BUN Creatinine Estim Creat Clear Calc Estimated GFR Glucose POC Capillary Glucose Hemoglobin A1c 6.5 H Calcium Magnesium Total Bilirubin AST ALT Alkaline Phosphatase Total Creatine Kinase 605 H Troponin I 0.097 H* Cancelled NT-Pro-B Natriuret Pep Total Protein Albumin Triglycerides 71 Cholesterol LDL Cholesterol Direct HDL Direct TSH (Reflex) Urine Color Urine Appearance Urine pH Ur Specific [place] Urine Protein Urine Glucose (UA) Urine Ketones Ur Blood (Man) Urine Nitrate Urine Bilirubin Urine Urobilinogen Leukocyte Esterase Rfl Urine RBC Urine WBC Ur Squamous Epith Cells Urine Bacteria Urine Casts Influenza A (RT-PCR) Negative Influenza B (RT-PCR) Negative RSV (RT-PCR) Negative SARS-CoV-2 RNA (RT-PCR) Negative 01/08/25 01/08/25 01/08/25 03:44 03:44 03:44 WBC RBC Hgb Hct MCV MCH MCHC RDW Plt Count MPV Immature Gran % (Auto) Neut % (Auto) Lymph % (Auto) [place] % (Auto) Eos % (Auto) Baso % (Auto) Lymph # (Auto) [place] # (Auto) Eos # (Auto) Baso # (Auto) Abs Immat Gran (auto) Absolute Neuts (auto) Absolute Nucleated RBC Nucleated RBC % PT INR APTT Sodium Potassium Chloride Carbon Dioxide Anion Gap BUN Creatinine Estim Creat Clear Calc Estimated GFR Glucose POC Capillary Glucose Hemoglobin A1c Calcium Magnesium Total Bilirubin AST ALT Alkaline Phosphatase Total Creatine Kinase Troponin I NT-Pro-B Natriuret Pep Total Protein Albumin Triglycerides Cancelled Cholesterol 158 Cancelled LDL Cholesterol Direct 89 Cancelled HDL Direct 51 TSH (Reflex) Urine Color Urine Appearance Urine pH Ur Specific [place] Urine Protein Urine Glucose (UA) Urine Ketones Ur Blood (Man) Urine Nitrate Urine Bilirubin Urine Urobilinogen Leukocyte Esterase Rfl Urine RBC Urine WBC Ur Squamous Epith Cells Urine Bacteria Urine Casts Influenza A (RT-PCR) Influenza B (RT-PCR) RSV (RT-PCR) SARS-CoV-2 RNA (RT-PCR) 01/08/25 01/08/25 01/08/25 03:44 07:48 11:25 WBC RBC Hgb Hct MCV MCH MCHC RDW Plt Count MPV Immature Gran % (Auto) Neut % (Auto) Lymph % (Auto) [place] % (Auto) Eos % (Auto) Baso % (Auto) Lymph # (Auto) [place] # (Auto) Eos # (Auto) Baso # (Auto) Abs Immat Gran (auto) Absolute Neuts (auto) Absolute Nucleated RBC Nucleated RBC % PT INR APTT Sodium Potassium Chloride Carbon Dioxide Anion Gap BUN Creatinine Estim Creat Clear Calc Estimated GFR Glucose POC Capillary Glucose 133 H 271 H Hemoglobin A1c Calcium Magnesium Total Bilirubin AST ALT Alkaline Phosphatase Total Creatine Kinase Troponin I NT-Pro-B Natriuret Pep Total Protein Albumin Triglycerides Cholesterol LDL Cholesterol Direct HDL Direct Cancelled TSH (Reflex) 1.560 Urine Color Urine Appearance Urine pH Ur Specific [place] Urine Protein Urine Glucose (UA) Urine Ketones Ur Blood (Man) Urine Nitrate Urine Bilirubin Urine Urobilinogen Leukocyte Esterase Rfl Urine RBC Urine WBC Ur Squamous Epith Cells Urine Bacteria Urine Casts Influenza A (RT-PCR) Influenza B (RT-PCR) RSV (RT-PCR) SARS-CoV-2 RNA (RT-PCR)
--- NOTE | 2025-01-08 13:57 | PC.NURSE ---
Report called to BRYCE Alford. Discussed with her that the patient is confused and that while on the phone giving report the patient was trying to get out of the bed and may need a sitter. Also discussed that there are orders for an MRI, however the patient nor her family are unable to answer questions regarding the patient history. Unknown if the patient has any metal items implanted at this time. RN denies further questions at this time. Transferred in bed to room 317-2
--- NOTE | 2025-01-08 14:01 | ADMGEN ---
This patient, Shavon Muñoz, was transferred to 3 Med Surg Room 317-02. Report received from BRYCE Noguera.
[2025-01-08 16:48] LABS: Glucose Point of Care 110 mg/dl (65-105)
[2025-01-08 22:26] LABS: Glucose Point of Care 144 mg/dl (65-105)
--- NOTE | 2025-01-09 01:46 | ECHO_ITS ---
Patient Info Name: Shavon Muñoz Age: 84 years : 1940 Gender: Female Ht: 62 in Wt: 134 lbs BSA: 1.64 m2 HR: 89 bpm BP: 115 / 78 mmHg Heart Rhythm: Sinus Rhythm Technical Quality: Fair Exam Date: 01/09/2025 11:09 AM Exam Location: Echo Lab Patient Status: Inpatient Admit Date: 01/08/2025 Staff Ordering Physician: Janine Brennan PA-C Dictaphone Typist: Simi Cross RDCS Attending Provider: Rogelio Singer MD Referring Physician: Mika ROSE; Exam Type: CA echo doppler w bubble study Study Info Indications - neuro symptoms, HTN Complete two-dimensional, color flow and Doppler transthoracic echocardiogram is performed with agitated saline. Contrast/Agitated Saline Contrast/Ag. Saline: Agitated Saline Amount: 20.00 ml Existing IV Access: Yes IV Access Condition: patent with no signs of infiltration Summary 1. Left ventricular chamber dimension is normal. 2. Left ventricular systolic function is hyperdynamic, estimated at >70%. 3. The left ventricular diastolic function is grade I diastolic dysfunction. 4. E/e '12 is mildly elevated. 5. Left atrial chamber dimension is mildly enlarged. 6. There is mild aortic valve sclerosis. 7. The mitral valve has moderately calcified annulus. 8. No pulmonary hypertension, estimated pulmonary arterial systolic pressure is 17 mmHg. Left Ventricle E/e '12 is mildly elevated. Left ventricular chamber dimension is normal. Left ventricular systolic function is hyperdynamic, estimated at >70%. The left ventricular diastolic function is grade I diastolic dysfunction. Right Ventricle Right ventricular chamber dimension is normal. Right ventricular systolic function is normal. Left Atria Left atrial chamber dimension is mildly enlarged. Right Atria Right atrial chamber dimension is normal. Atrial Septum Agitated saline injection with and without valsalva maneuver opacified right side cardiac chambers without shunt to left side cardiac chambers. Interatrial septum not well visualized by 2D and agitated saline imaging. Aortic Valve The aortic valve is trileaflet. There is mild aortic valve sclerosis. There is no aortic valve stenosis. There is no aortic valve regurgitation. Pulmonic Valve There is no pulmonic regurgitation. Mitral Valve The mitral valve has moderately calcified annulus. There is no mitral valve stenosis. There is no mitral valve regurgitation. Tricuspid Valve There is no tricuspid valve regurgitation. No pulmonary hypertension, estimated pulmonary arterial systolic pressure is 17 mmHg. Pericardium/Pleural There is no pericardial effusion. Inferior Vena Cava Normal inferior vena cava with >50% collapse upon inspiration consistent with normal right atrial pressure, 5 mmHg. Aorta The aortic root size at the sinus of Valsalva is normal. Left Ventricular Outflow Tract Name Value Normal LVOT 2D LVOT Diameter 2.0 cm LVOT Doppler LVOT Peak Gradient 3 mmHg LVOT Mean Gradient 2 mmHg LVOT VTI 13 cm LVOT VTI/AV VTI Ratio 0.7 LVOT Stroke Volume 40 ml LVOT CO 3.5 l/min LVOT CI 2.1 l/min/m2 Pulmonic Valve Name Value Normal RVOT Doppler RVOT Peak Gradient 3 mmHg PV Doppler PV Peak Gradient 4 mmHg Mitral Valve Name Value Normal MV Doppler MV Decel Fleming 393 cm/s2 MV PHT 34 ms MV Area (PHT) 6.5 cm2 4.0-5.0 MV Diastolic Function MV E Peak Velocity 46 cm/s MV A Peak Velocity 81 cm/s MV E/A 0.6 MV Decel Time 117 ms MV Annular TDI MV E/e' (Septal) 11.9 <=8.0 MV E/e' (Lateral) 13.8 <=8.0 MV E/e' (Average) 12.9 Tricuspid Valve Name Value Normal TV Regurgitation Doppler TR Peak Velocity 176 cm/s TR Peak Gradient 12 mmHg Estimated PAP/RSVP RA Pressure 5 mmHg <=5 PA Systolic Pressure 17 mmHg <36 RV Systolic Pressure 17 mmHg <36 Aorta Name Value Normal Ascending Aorta Ao Root Diameter (MM) 2.7 cm Ao Root Diam Index (MM) 1.6 cm/m2 Aortic Valve Name Value Normal AV Doppler AV Peak Velocity 130 cm/s AV Peak Gradient 7 mmHg AV Mean Gradient 4 mmHg AV VTI 19 cm AV Area (Cont Eq VTI) 2.2 cm2 >=3.0 AV Area (Cont Eq Elie) 2.0 cm2 AV Regurgitation 2D LVOT Area 3.0 cm2 Ventricles Name Value Normal LV Dimensions 2D/MM IVS Diastolic Thickness (2D) 1.1 cm 0.6-1.0 LVID Diastole (2D) 4.6 cm 3.8-5.2 LVIW Diastolic Thickness (2D) 1.1 cm 0.6-0.9 LVID Systole (2D) 3.1 cm 2.2-3.5 LVOT Diameter 2.0 cm LV Mass (2D Cubed) 182.61 g 67.00-162.00 LV Mass Index (2D Cubed) 111 g/m2 43-95 Relative Wall Thickness (2D) 0.47 LV Fractional Shortening/Ejection Fraction 2D/MM LV Fractional Shortening (2D) 32 % 27-45 LV EF (2D Teicholz) 60 % 54-74 LV Diastolic Volume (4C MOD) 34 ml LV EF (4C MOD) 57 % LV Diastolic Volume (2C MOD) 38 ml LV EF (2C MOD) 52 % LV Diastolic Volume (BP MOD) 38 ml 46-106 LV Diastolic Volume Index (BP MOD) 23 ml/m2 29-61 LV Systolic Volume (BP MOD) 17 ml 14-42 LV Systolic Volume Index (BP MOD) 11 ml/m2 8-24 LV EF (BP MOD) 54 % 54-74 LV Diastolic Length (4C) 6.1 cm LV Systolic Length (4C) 5.3 cm LV Stroke Volume (4C MOD) 20 ml Atria Name Value Normal LA Dimensions LA Dimension (MM) 3.7 cm 2.7-3.8 LA Volume (4C A-L) 28 ml LA Volume (BP A-L) 44 ml RA Dimensions RA Area (4C) 10.6 cm2 <=18.0 Report Signatures
[2025-01-09 05:28] VITALS: BP 115/78; PULSE 89; RESP 18; TEMP 36.4; O2SAT 100
[2025-01-09 06:47] LABS: Creatine Kinase 565 U/L (30-135)
[2025-01-09 06:49] LABS: Anion Gap 9 mmol/L (4-12); Blood Urea Nitrogen 10 mg/dL (7-17); Calcium 9.2 mg/dL (8.4-10.2); Carbon Dioxide 27 mmol/L (22-30); Chloride 102 mmol/L (98-107); Estimated CRCL calculation 54 ml/min; Estimated Glomerular Filt Rate > 60; Glucose 159 mg/dL (65-110); Potassium 3.1 mmol/L (3.4-5.0); Sodium 138 mmol/L (137-145)
[2025-01-09 07:44] LABS: Glucose Point of Care 137 mg/dl (65-105)
[2025-01-09 08:00] VITALS: PULSE 91; RESP 22; O2SAT 97
--- NOTE | 2025-01-09 10:44 | PCSTNOTE ---
Please refer to the Bedside Swallow Evaluation in the EMR. Please note, silent aspiration cannot be ruled out at bedside. The above alert, pleasant but confused pt was seen for a swallow evaluation at bedside.? The pt was found in the bed with her breakfast meal in front of her. She was leaning over to her right side attempting to feed herself. She was repositioned upright for the swallow evaluation. She was able to respond to questions in complete sentences, but confusion was noted. Pt is currently on a regular diet but found to be edentulous. She stated that if the food was cooked and soft enough she could eat it without teeth. ?? Oral mucosa is normal; as stated she is edentulous. Cursory oral peripheral exam revealed functional lingual and labial structures. She was able to dry swallow on command and exhibited clear vocal quality. She was tested with pudding, applesauce, sausage from her breakfast tray and thin liquids.? The oral stages appeared WFL re lingual and labial musculature; difficulty was noted with mastication due to being edentulous. ?No oral leakage but a liquid was used to clear a portion of the sausage pieces. During the pharyngeal stage, swallow reflex appeared prompt & laryngeal elevation adequate. No overt s/s of aspiration were exhibited; however, silent aspiration cannot be ruled out at bedside.? General impression is functional swallow ability.? Recommendation: level 5 minced and moist diet with regular liquids.? Thank you for this referral.
--- NOTE | 2025-01-09 11:17 | P.PNIM_ITS ---
Progress Note: A&P Assessment and Plan (1) Elevated troponin: Code(s): R79.89 - Other specified abnormal findings of blood chemistry Status: Acute Assessment and Plan: Elevated troponin levels - possibly secondary to rhabdo order ECHO to review (2) Unwitnessed fall: Code(s): R29.6 - Repeated falls Status: Acute Assessment and Plan: PT/ OT Pt appears very weak may benefit from AR -d/c bedrest order (3) Expressive aphasia: Code(s): R47.01 - Aphasia Status: Acute Assessment and Plan: speech appears improving MRI brain ordered to rule out stroke check carotids improved with hydration - speech therapy seen and examined her- cleared but since pt has no teeth-will need diet modifications-ordered (4) Elevated creatine kinase: Code(s): R74.8 - Abnormal levels of other serum enzymes Status: Acute Assessment and Plan: rhabdo continue to monitor CK -trending down continue IV hydration- monitor closely for fluid balance (5) Hypokalemia: Code(s): E87.6 - Hypokalemia Status: Acute Assessment and Plan: watch bmp (6) Dementia: Code(s): F03.90 - Unspecified dementia, unspecified severity, without behavioral disturbance, psychotic disturbance, mood disturbance, and anxiety Status: Acute Assessment and Plan: Chronic state Pt will benefit from dementia medications (7) Hypertension: Code(s): I10 - Essential (primary) hypertension Status: Acute Assessment and Plan: Watch bp (8) Hyperlipidemia: Code(s): E78.5 - Hyperlipidemia, unspecified Status: Acute Assessment and Plan: chronic condition (9) Multinodular thyroid: Code(s): E04.2 - Nontoxic multinodular goiter Status: Acute Assessment and Plan: order tsh t4 (10) Type 2 diabetes mellitus: Code(s): E11.9 - Type 2 diabetes mellitus without complications Status: Acute Assessment and Plan: accuchecks SSI watch sugars (11) Chronic obstructive pulmonary disease: Code(s): J44.9 - Chronic obstructive pulmonary disease, unspecified Status: Acute (12) Interstitial lung disease: Code(s): J84.9 - Interstitial pulmonary disease, unspecified Status: Acute Time Spent With Patient Time with patient: 25 - 35 minutes Subjective Date/time seen: 01/09/25 11:17 Interval history: 84-year-old female with hypertension, hyperlipidemia, ascending aortic aneurysm, chronic obstructive pulmonary disease, multinodular thyroid, type 2 diabetes mellitus, and other comorbidities who presented to the emergency department via EMS from her [facility] for evaluation after a fall. The patient is unable to provide an accurate history and a majority the following is obtained via a review her EMS as well as information provided by her niece. Niece went to visit the patient today and found her on lying the ground and presumes the patie nt had a fall sometime overnight although the patient is unable to say when or how she ended up on the floor. Niece reports that the patient is becoming increasingly forgetful and is not taking care of herself very well. It is my understanding that she has had several falls the last several weeks. She is forgetting to eat at times and is not good at answering the phone any longer. Niece believes that she will need assisted living or memory care. Pt admitted with fall elevated trop and CK Pt has dementia pt still very weak will order echo and cardiology consult was in IMU but transferred out 01/09- pt is seen and examined. card was consulted per previous provider but have not seen pt yet. PT is pleasanly confused, but re orients easily. Denies pain. Review of Systems Review of Systems: confusion weakness frail Exam Narrative: General: Chronically ill very confused Respiratory: Clear lung prakash Cardiovascular: Regular rate and rhythm with S1-S2. Gastrointestinal: Abdomen is soft, nontender, and nondistended with positive bowel sounds. Skin: Warm and dry. Extremities: No cyanosis, clubbing, or significant edema. Radial and pedal pulses intact. Neurological: No gross focal deficits casual conversations. Psychiatric: Pleasantly confused and cooperative. Objective Data Vital Signs Vital Signs: Vital Signs - 24 hr 01/08/25 11:54 01/08/25 14:00 01/08/25 20:00 Temperature 97.6 F 97.2 F L Pulse Rate 90 82 Respiratory Rate 18 18 Blood Pressure 111/67 118/70 Pulse Oximetry 97 96 Oxygen Delivery Room Air 01/09/25 05:28 Temperature 97.6 F Pulse Rate 89 Respiratory Rate 18 Blood Pressure 115/78 Pulse Oximetry 100 Oxygen Delivery Intake/Output Intake/Output: Intake & Output 01/06/25 01/07/25 01/09/25 01/09/25 23:59 23:59 00:59 23:59 Intake Total 1000 2752.5 120 Output Total 400 250 Balance 600 2502.5 120 Meds/Results Medications: Active Medications Generic Name Dose Route Start Last Admin Trade Name Frida PRN Reason Stop Dose Admin Acetaminophen 650 mg 01/08/25 01:46 Acetaminophen 325 Mg Tablet PO Q6H PRN Mild Pain (1-3) or Fever Dextrose 12.5 gm 01/08/25 01:47 Dextrose 50% 25 Gm/50 Ml Syringe IV PUSH PRN PRN Hypoglycemia Protocol Enoxaparin Sodium 40 mg 01/08/25 09:00 01/08/25 08:40 Enoxaparin 40 Mg/0.4 Ml Syringe SUB-Q 40 mg DAILY GORDO Administration Glucagon 1 mg 01/08/25 01:47 Glucagon For Inj 1 Mg Vial IM PRN PRN Hypoglycemia Protocol Glucose 15 gm 01/08/25 01:47 Glucose Oral Gel 15 Gm Of Glucse In 37.5 Gm Tube PO PRN PRN Hypoglycemia Protocol Sodium Chloride 1,000 mls @ 100 mls/hr 01/07/25 19:35 01/08/25 23:39 Normal Saline Iv IV CONT 125 mls/hr .Q10H GORDO Administration Dextrose 1,000 mls @ 100 mls/hr 01/08/25 01:47 Dextrose 5% 1,000 Ml IVPB PRN PRN Hypoglycemia Protocol Insulin Aspart 2 - 5 units 01/08/25 08:00 01/08/25 12:01 Insulin Aspart (*Bkc) 100 Units/Ml SUB-Q 3 units TIDWM GORDO Administration Protocol Insulin Aspart 1 - 2 units 01/08/25 21:00 01/08/25 21:50 Insulin Aspart (*Bkc) 100 Units/Ml SUB-Q Not Given HS GORDO Protocol Perflutren Lipid Microsphere 0 ml 01/08/25 01:46 Perflutren Lipid Microspheres 1.5 Ml Vial Diluted To 10 Ml Total Volume IV PUSH 01/11/25 01:46 ONCE PRN adequate visualization Protocol Radiology Results: ITS Impressions Head CT 01/07/25 17:47 IMPRESSION: No acute intracranial findings. Cervical Spine CT 01/07/25 17:52 IMPRESSION: No acute osseous abnormality cervical spine. Multilevel degenerative disc disease. Multiple nodules in the thyroid with calcification. Further evaluation advised Chest X-Ray 01/07/25 18:20 IMPRESSION: Bilateral interstitial changes suggestive of fibrotic changes. Superimposed pneumonitis and less likely edema cannot be excluded. Vague opacity in the right and left midzone. Follow-up in 3 months is advised. Hip/Pelvis X-Ray 01/07/25 18:24 IMPRESSION: No acute osseous abnormality of the bilateral hips and pelvis. Chest CTA 01/07/25 18:41 IMPRESSION: 1. No pulmonary embolism. 2. Fibrotic changes. Superimposed pneumonitis cannot be excluded. 3. Sliding hiatus hernia. 4. Bilateral renal cysts. Carotid Doppler Study 01/08/25 12:28 Impression: No hemodynamically significant stenosis of the bilateral internal carotid arteries. Antegrade flow in the bilateral vertebral arteries. Note: The methodology used is an indirect measurement validated against a direct method (such as the NASCET criteria) that compares diameters at the stenosis to the distal ICA. Labs Labs: Laboratory Results - last 24 hr 01/08/25 01/08/25 01/08/25 11:25 16:45 21:47 Sodium Potassium Chloride Carbon Dioxide Anion Gap BUN Creatinine Estim Creat Clear Calc Estimated GFR Glucose POC Capillary Glucose 271 H 110 H 144 H Calcium Total Creatine Kinase TSH 01/09/25 01/09/25 06:22 07:37 Sodium 138 Potassium 3.1 L Chloride 102 Carbon Dioxide 27 Anion Gap 9 BUN 10 Creatinine 0.52 L Estim Creat Clear Calc 54 Estimated GFR > 60 Glucose 159 H POC Capillary Glucose 137 H Calcium 9.2 Total Creatine Kinase 565 H TSH 2.770 Quality VTE Prophylaxis VTE prophylaxis: pharmacologic ordered
[2025-01-09 13:56] VITALS: BP 118/72; PULSE 91; RESP 22; TEMP 36.3; O2SAT 97
[2025-01-09 14:10] LABS: Glucose Point of Care 203 mg/dl (65-105)
[2025-01-09 16:46] LABS: Glucose Point of Care 227 mg/dl (65-105)
[2025-01-09] MEDS: ENOXAPARIN 40 MG/0.4 ML SYRINGE SUB-Q (18:45)
[2025-01-09] MEDS: INSULIN ASPART (*BKC) 100 UNITS/ML SUB-Q (18:45)
[2025-01-09] MEDS: SODIUM CHLORIDE 0.9% IV 1,000 ML 125 ML IV CONT (18:46)
[2025-01-09] MEDS: POTASSIUM CHLORIDE 20 MEQ PACKET (FOR LIQUID) 40 MEQ PO (19:22)
[2025-01-09] MEDS: SODIUM CHLORIDE 0.9% IV 1,000 ML 100 ML IV CONT (19:23)
[2025-01-09 20:00] VITALS: BP 116/71; PULSE 103; PULSE 80; RESP 18; TEMP 36.2; O2SAT 95
[2025-01-09 20:05] VITALS: PULSE 103; RESP 18
[2025-01-09] MEDS: FLUTICASONE/SALMETEROL 115-21 MCG INHALER 1 PUFF 2 PUFF INHALATION (20:05)
[2025-01-09] MEDS: PRAVASTATIN SODIUM 20 MG TABLET BY MOUTH (21:10)
[2025-01-09 21:34] LABS: Glucose Point of Care 158 mg/dl (65-105)
[2025-01-10 06:00] VITALS: BP 120/77; PULSE 82; RESP 18; TEMP 36.4; O2SAT 96
[2025-01-10 07:54] LABS: Glucose Point of Care 134 mg/dl (65-105)
--- NOTE | 2025-01-10 07:54 | PM.IMPN ---
Progress Note: A&P Assessment and Plan (1) Elevated troponin: Code(s): R79.89 - Other specified abnormal findings of blood chemistry Status: Acute Assessment and Plan: ##Elevated troponin levels - possibly secondary to rhabdomyolysis --> ECHO Summary - L EF >70% - Left ventricular chamber dimension is normal. Left ventricular systolic function is hyperdynamic, estimated at >70%. The left ventricular diastolic function is grade I diastolic dysfunction. E/e '12 is mildly elevated. Left atrial chamber dimension is mildly enlarged. There is mild aortic valve sclerosis. The mitral valve has moderately calcified annulus. No pulmonary hypertension, estimated pulmonary arterial systolic pressure is 17 mmHg. - BNP 1270 (2) Unwitnessed fall: Code(s): R29.6 - Repeated falls Status: Acute Assessment and Plan: --> PT/ OT to eval and treat --> Patient appears very weak may benefit from AR (3) Expressive aphasia: Code(s): R47.01 - Aphasia Status: Acute Assessment and Plan: ##unknown cause --> speech appears improving -->MRI brain ordered to rule out stroke -->carotids -improved with hydration - speech therapy seen and examined her- cleared but since pt has no teeth-will need diet modifications-ordered (4) Elevated creatine kinase: Code(s): R74.8 - Abnormal levels of other serum enzymes Status: Acute Assessment and Plan: ##rhabdo --> most likely due to fall, unknown how long patient laid on the floor -->continue to monitor CK - 605--> 565--> 311 --continue IV hydration- monitor closely for fluid balance due to hx of CHF (5) Hypokalemia: Code(s): E87.6 - Hypokalemia Status: Acute Assessment and Plan: - K - 3.1 --> 3.2 - trend and replete as needed. (6) Dementia: Code(s): F03.90 - Unspecified dementia, unspecified severity, without behavioral disturbance, psychotic disturbance, mood disturbance, and anxiety Status: Acute Assessment and Plan: #Chronic state vs acute complication --> MRI today --> consider neuro consultation - terminal make up operator placement vs detention placement at discharge. (7) Hypertension: Code(s): I10 - Essential (primary) hypertension Status: Acute Assessment and Plan: --chronic - continue home medications - monitor vital signs. (8) Hyperlipidemia: Code(s): E78.5 - Hyperlipidemia, unspecified Status: Acute Assessment and Plan: chronic condition (9) Multinodular thyroid: Code(s): E04.2 - Nontoxic multinodular goiter Status: Acute Assessment and Plan: - tsh t4 - normal (10) Type 2 diabetes mellitus: Code(s): E11.9 - Type 2 diabetes mellitus without complications Status: Acute Assessment and Plan: ##chronic condition - HgA1C - 6.5 -->Diabetic diet, -->accuchecks SSI - hypoglycemia protocol (11) Chronic obstructive pulmonary disease: Code(s): J44.9 - Chronic obstructive pulmonary disease, unspecified Status: Acute Assessment and Plan: #chronic --> continue current orders (12) Interstitial lung disease: Code(s): J84.9 - Interstitial pulmonary disease, unspecified Status: Acute Assessment and Plan: #chronic Plan -MRI today, will review results -patient would benefit from skilled rehab center placement for continued PT OT - Time Spent With Patient Time with patient: Greater than 35 minutes (40 minutes) Subjective Date/time seen: 01/10/25 07:54 Interval history: 84-year-old female with hypertension, hyperlipidemia, ascending aortic aneurysm, chronic obstructive pulmonary disease, multinodular thyroid, type 2 diabetes mellitus, and other comorbidities who presented to the emergency department via EMS from her skilled nursing facility for evaluation after a fall. The patient is unable to provide an accurate history and a majority the following is obtained via a review her EMS as well as information provided by her niece. Niece went to visit the patient today and found her on lying the ground and presumes the patient had a fall sometime overnight although the patient is unable to say when or how she ended up on the floor. Niece reports that the patient is becoming increasingly forgetful and is not taking care of herself very well. It is my understanding that she has had several falls the last several weeks. She is forgetting to eat at times and is not good at answering the phone any longer. Niece believes that she will need assisted living or memory care. Pt admitted with fall elevated trop and CK. Patient has dementia patient still very weak will order echo and cardiology consult was in IMU but transferred out to regular medical bed. 01/09- pt is seen and examined. card was consulted per previous provider but have not seen pt yet. PT is pleasantly confused, but re orients easily. Denies pain. 01/10- Patient today is confused but very pleasant. patient denies any distress. States she is not short of breath, patient is able to converse eat with this provider. She is A&O x1. Review of Systems Review of Systems: confusion weakness frail Exam Narrative: General: Chronically ill, A&O x1, pleasant Respiratory: Clear lung prakash Cardiovascular: Regular rate and rhythm with S1-S2. Gastrointestinal: Abdomen is soft, nontender, and nondistended with positive bowel sounds. Skin: Warm and dry. Extremities: No cyanosis, clubbing, or significant edema. Radial and pedal pulses intact. Neurological: No gross focal deficits casual conversations. Psychiatric: Pleasantly confused and cooperative. Const: General: cooperative, no acute distress, awake and Physically active Orientation/consciousness: oriented to person HENMT: Head: normal to inspection and normocephalic Objective Data Vital Signs Vital Signs: Vital Signs - 24 hr 01/09/25 08:00 01/09/25 13:49 01/09/25 13:56 Temperature 97.4 F L Pulse Rate 91 91 Respiratory Rate 22 H 22 H Blood Pressure 118/72 Pulse Oximetry 97 97 Oxygen Delivery Room Air Room Air 01/09/25 14:47 01/09/25 20:00 01/09/25 20:00 Temperature 97.2 F L Pulse Rate 80 103 H Respiratory Rate 18 18 Blood Pressure 116/71 Pulse Oximetry 95 95 Oxygen Delivery Room Air Room Air 01/09/25 20:05 01/10/25 06:00 Temperature 97.6 F Pulse Rate 103 H 82 Respiratory Rate 18 18 Blood Pressure 120/77 Pulse Oximetry 96 Oxygen Delivery Intake/Output Intake/Output: Intake & Output 01/07/25 01/09/25 01/09/25 01/10/25 23:59 00:59 23:59 23:59 Intake Total 1000 2752.5 1197.1 Output Total 400 250 Balance 600 2502.5 1197.1 Meds/Results Medications: Active Medications Generic Name Dose Route Start Last Admin Trade Name Freq PRN Reason Stop Dose Admin Acetaminophen 650 mg 01/08/25 01:46 Acetaminophen 325 Mg Tablet PO Q6H PRN Mild Pain (1-3) or Fever Albuterol 2 puff 01/09/25 11:24 Albuterol Sulfate (*Sp) Aerosol 1 Puff INHALATION QID PRN Dyspnea Dextrose 12.5 gm 01/08/25 01:47 Dextrose 50% 25 Gm/50 Ml Syringe IV PUSH PRN PRN Hypoglycemia Protocol Enoxaparin Sodium 40 mg 01/08/25 09:00 01/09/25 18:45 Enoxaparin 40 Mg/0.4 Ml Syringe SUB-Q 40 mg DAILY GORDO Administration Fluticasone Propionate 1 spray 01/09/25 13:12 Fluticasone Propionate 0.05% Na Spr 16 Gm Btl (*Bkc) NASAL DAILY PRN Sinus Symptoms Glucagon 1 mg 01/08/25 01:47 Glucagon For Inj 1 Mg Vial IM PRN PRN Hypoglycemia Protocol Glucose 15 gm 01/08/25 01:47 Glucose Oral Gel 15 Gm Of Glucse In 37.5 Gm Tube PO PRN PRN Hypoglycemia Protocol Sodium Chloride 1,000 mls @ 100 mls/hr 01/07/25 19:35 01/09/25 19:23 Normal Saline Iv IV CONT 100 mls/hr .Q10H GORDO Administration Dextrose 1,000 mls @ 100 mls/hr 01/08/25 01:47 Dextrose 5% 1,000 Ml IVPB PRN PRN Hypoglycemia Protocol Insulin Aspart 2 - 5 units 01/08/25 08:00 01/09/25 18:45 Insulin Aspart (*Bkc) 100 Units/Ml SUB-Q 2 units TIDWM GORDO Administration Protocol Insulin Aspart 1 - 2 units 01/08/25 21:00 01/09/25 21:59 Insulin Aspart (*Bkc) 100 Units/Ml SUB-Q Not Given HS GORDO Protocol Perflutren Lipid Microsphere 0 ml 01/08/25 01:46 Perflutren Lipid Microspheres 1.5 Ml Vial Diluted To 10 Ml Total Volume IV PUSH 01/11/25 01:46 ONCE PRN adequate visualization Protocol Polyethylene Glycol 17 gm 01/10/25 09:00 Polyethylene Glycol 3350 17 Gm Powd.Pack PO DAILY GORDO Pravastatin Sodium 20 mg 01/09/25 21:00 01/09/25 21:10 Pravastatin Sodium 20 Mg Tablet BY MOUTH 20 mg QHS GORDO Administration Fluticasone/Salmeterol 2 puff 01/09/25 11:30 01/09/25 20:05 Fluticasone/Salmeterol 115-21 Mcg Inhaler 1 Puff INHALATION 2 puff Q12HRT GORDO Administration Radiology Results: ITS Impressions Head CT 01/07/25 17:47 IMPRESSION: No acute intracranial findings. Cervical Spine CT 01/07/25 17:52 IMPRESSION: No acute osseous abnormality cervical spine. Multilevel degenerative disc disease. Multiple nodules in the thyroid with calcification. Further evaluation advised Chest X-Ray 01/07/25 18:20 IMPRESSION: Bilateral interstitial changes suggestive of fibrotic changes. Superimposed pneumonitis and less likely edema cannot be excluded. Vague opacity in the right and left midzone. Follow-up in 3 months is advised. Hip/Pelvis X-Ray 01/07/25 18:24 IMPRESSION: No acute osseous abnormality of the bilateral hips and pelvis. Chest CTA 01/07/25 18:41 IMPRESSION: 1. No pulmonary embolism. 2. Fibrotic changes. Superimposed pneumonitis cannot be excluded. 3. Sliding hiatus hernia. 4. Bilateral renal cysts. Carotid Doppler Study 01/08/25 12:28 Impression: No hemodynamically significant stenosis of the bilateral internal carotid arteries. Antegrade flow in the bilateral vertebral arteries. Note: The methodology used is an indirect measurement validated against a direct method (such as the NASCET criteria) that compares diameters at the stenosis to the distal ICA. Echocardiogram - 01/09/25 Summary 1. Left ventricular chamber dimension is normal. 2. Left ventricular systolic function is hyperdynamic, estimated at >70%. 3. The left ventricular diastolic function is grade I diastolic dysfunction. 4. E/e '12 is mildly elevated. 5. Left atrial chamber dimension is mildly enlarged. 6. There is mild aortic valve sclerosis. 7. The mitral valve has moderately calcified annulus. 8. No pulmonary hypertension, estimated pulmonary arterial systolic pressure is 17 mmHg. Labs Labs: Laboratory Results - last 24 hr 01/09/25 01/09/25 01/09/25 12:11 16:41 21:30 POC Capillary Glucose 203 H 227 H 158 H 01/10/25 07:37 POC Capillary Glucose 134 H Quality VTE Prophylaxis VTE prophylaxis: pharmacologic ordered Hospitalist [facility] Advance Care Plan I have confirmed that the patient's Advanced Care Plan is present, code status is documented, or surrogate decision maker is listed in patient medical record.: Yes Medication Reconciliation I have utilized all available resources to obtain, update and review the patients current medications (includes all prescriptions, OTC, herbals, cannabis, and nutritional supplements).: Yes
[2025-01-10 08:48] LABS: Basophils Percent Auto 0.2 % (0.2-1.2); Eosinophils Absolute Auto 0.1 K/mm3 (0-0.3); Eosinophils Percent Auto 0.7 % (0-4.4); Hematocrit 39.5 % (37.0-47.0); Hemoglobin 13.3 g/dL (12.0-15.0); Immature Granulocyte Absolute 0.04 K/mm3 (0.00-0.031); Immature Granulocyte Percent A 0.4 % (0-0.5); Lymphocytes Percent Auto 19.6 % (18.3-44.2); Mean Corpuscular HGB Conc 33.7 g/dl (32-36); Mean Corpuscular Hemoglobin 32.3 pg (26-34); Mean Corpuscular Volume 95.9 fl (80-100); Mean Platelet Volume 9.4 fl (7.4-10.4); Monocytes Absolute Auto 0.8 K/mm3 (0.1-0.6); Monocytes Percent Auto 8.3 % (2.6-8.5); Neutrophils Absolute Auto 6.5 K/mm3 (1.3-6.7); Neutrophils Percent Auto 70.8 % (45.5-73.1); Platelet Count Result 217 k/mm3 (150-375); Red Blood Count 4.12 M/mm3 (4.2-5.4); Red Cell Distribution Width 12.5 % (11.5-14.5); White Blood Count 9.2 K/mm3 (4.5-10.0)
[2025-01-10] MEDS: FLUTICASONE/SALMETEROL 115-21 MCG INHALER 1 PUFF 2 PUFF INHALATION ×2 (08:58→21:14)
[2025-01-10 09:06] LABS: Alanine Aminotransferase 24 U/L (6-35); Albumin Level 3.7 g/dL (3.5-5.1); Alkaline Phosphatase 89 U/L (38-126); Anion Gap 7 mmol/L (4-12); Aspartate Amino Transferase 32 U/L (14-36); Bilirubin,Total 1.4 mg/dL (0.2-1.3); Blood Urea Nitrogen 16 mg/dL (7-17); Calcium 9.2 mg/dL (8.4-10.2); Carbon Dioxide 27 mmol/L (22-30); Chloride 104 mmol/L (98-107); Creatine Kinase 311 U/L (30-135); Estimated CRCL calculation 47 ml/min; Estimated Glomerular Filt Rate > 60; Glucose 143 mg/dL (65-110); Potassium 3.2 mmol/L (3.4-5.0); Sodium 138 mmol/L (137-145)
[2025-01-10 09:14] LABS: NT Pro B Type Natriuretic Pept 1270 pg/mL (19.9-100)
[2025-01-10] MEDS: polyethylene glycoL 3350 17 GM POWD.PACK PO (10:06)
[2025-01-10] MEDS: ENOXAPARIN 40 MG/0.4 ML SYRINGE SUB-Q (10:06)
[2025-01-10 11:41] LABS: Glucose Point of Care 304 mg/dl (65-105)
[2025-01-10] MEDS: INSULIN ASPART (*BKC) 100 UNITS/ML SUB-Q (11:57)
[2025-01-10 14:00] VITALS: BP 142/99; PULSE 100; RESP 16; TEMP 36.6; O2SAT 98
[2025-01-10 16:25] LABS: Glucose Point of Care 185 mg/dl (65-105)
[2025-01-10] MEDS: SODIUM CHLORIDE 0.9% IV 1,000 ML 100 ML IV CONT (18:17)
[2025-01-10 20:00] VITALS: BP 166/73; PULSE 98; RESP 17; TEMP 36.7; O2SAT 97
[2025-01-10 20:13] LABS: Glucose Point of Care 191 mg/dl (65-105)
[2025-01-10] MEDS: PRAVASTATIN SODIUM 20 MG TABLET BY MOUTH (20:46)
[2025-01-10 21:14] VITALS: PULSE 87; RESP 20
[2025-01-11 06:00] VITALS: BP 169/76; PULSE 77; RESP 18; TEMP 36.8; O2SAT 99
[2025-01-11 06:56] LABS: Basophils Percent Auto 0.1 % (0.2-1.2); Eosinophils Percent Auto 0.2 % (0-4.4); Hematocrit 42.2 % (37.0-47.0); Hemoglobin 14.3 g/dL (12.0-15.0); Immature Granulocyte Absolute 0.04 K/mm3 (0.00-0.031); Immature Granulocyte Percent A 0.4 % (0-0.5); Lymphocytes Percent Auto 12.1 % (18.3-44.2); Mean Corpuscular HGB Conc 33.9 g/dl (32-36); Mean Corpuscular Hemoglobin 31.9 pg (26-34); Mean Corpuscular Volume 94.2 fl (80-100); Mean Platelet Volume 9.8 fl (7.4-10.4); Monocytes Absolute Auto 0.8 K/mm3 (0.1-0.6); Monocytes Percent Auto 7.8 % (2.6-8.5); Neutrophils Absolute Auto 7.8 K/mm3 (1.3-6.7); Neutrophils Percent Auto 79.4 % (45.5-73.1); Platelet Count Result 239 k/mm3 (150-375); Red Blood Count 4.48 M/mm3 (4.2-5.4); Red Cell Distribution Width 12.3 % (11.5-14.5); White Blood Count 9.9 K/mm3 (4.5-10.0)
[2025-01-11] MEDS: SODIUM CHLORIDE 0.9% IV 1,000 ML 100 ML IV CONT (07:00)
[2025-01-11 07:05] LABS: Creatine Kinase 289 U/L (30-135)
[2025-01-11 07:14] LABS: NT Pro B Type Natriuretic Pept 2030 pg/mL (19.9-100)
[2025-01-11 07:15] LABS: Alanine Aminotransferase 27 U/L (6-35); Albumin Level 4.1 g/dL (3.5-5.1); Alkaline Phosphatase 99 U/L (38-126); Anion Gap 8 mmol/L (4-12); Aspartate Amino Transferase 36 U/L (14-36); Bilirubin,Total 1.6 mg/dL (0.2-1.3); Blood Urea Nitrogen 8 mg/dL (7-17); Calcium 9.2 mg/dL (8.4-10.2); Carbon Dioxide 29 mmol/L (22-30); Chloride 98 mmol/L (98-107); Estimated CRCL calculation 67 ml/min; Estimated Glomerular Filt Rate > 60; Glucose 180 mg/dL (65-110); Potassium 2.4 mmol/L (3.4-5.0); Sodium 135 mmol/L (137-145)
[2025-01-11] MEDS: FLUTICASONE/SALMETEROL 115-21 MCG INHALER 1 PUFF 2 PUFF INHALATION ×2 (07:44→20:43)
[2025-01-11] MEDS: POTASSIUM CHLORIDE INJ 40 MEQ in SODIUM CHLORIDE 0.9% IV 500 ML 130 MEQ IVPB (07:59)
[2025-01-11 08:00] VITALS: RESP 18; O2SAT 99
[2025-01-11 08:05] LABS: Glucose Point of Care 186 mg/dl (65-105)
[2025-01-11] MEDS: POTASSIUM CHLORIDE 20 MEQ ER TABLET 40 MEQ PO ×2 (08:29→14:59)
[2025-01-11] MEDS: ENOXAPARIN 40 MG/0.4 ML SYRINGE SUB-Q (08:29)
[2025-01-11] MEDS: polyethylene glycoL 3350 17 GM POWD.PACK PO (08:29)
--- NOTE | 2025-01-11 11:09 | P.PNIM_ITS ---
Progress Note: A&P Assessment and Plan (1) Elevated troponin: Code(s): R79.89 - Other specified abnormal findings of blood chemistry Status: Acute Assessment and Plan: ##Elevated troponin levels - possibly secondary to rhabdomyolysis --> ECHO Summary - L EF >70% - Left ventricular chamber dimension is normal. Left ventricular systolic function is hyperdynamic, estimated at >70%. The left ventricular diastolic function is grade I diastolic dysfunction. E/e '12 is mildly elevated. Left atrial chamber dimension is mildly enlarged. There is mild aortic valve sclerosis. The mitral valve has moderately calcified annulus. No pulmonary hypertension, estimated pulmonary arterial systolic pressure is 17 mmHg. (2) Unwitnessed fall: Code(s): R29.6 - Repeated falls Status: Acute Assessment and Plan: --> PT/ OT to eval and treat --> Patient appears very weak may benefit from SNF (3) Expressive aphasia: Code(s): R47.01 - Aphasia Status: Acute Assessment and Plan: ##unknown cause --> speech appears improving -->MRI brain ordered to rule out stroke. MRI brain 01/10 showed: IMPRESSION: 1. Moderate nonspecific cerebral white matter disease and pontine disease, which likely represents chronic small vessel ischemic disease. -->carotid dopplers: No hemodynamically significant stenosis of the bilateral internal carotid arteries.Antegrade flow in the bilateral vertebral arteries. -improved with hydration - speech therapy seen and examined her- cleared but since pt has no teeth-will need diet modifications-ordered (4) Elevated creatine kinase: Code(s): R74.8 - Abnormal levels of other serum enzymes Status: Acute Assessment and Plan: ##rhabdo --> most likely due to fall, unknown how long patient laid on the floor -->continue to monitor CK - 605--> 565--> 311-->289 -- BNP 2030, stop iv fluids. Patient with good oral intake. (5) Hypokalemia: Code(s): E87.6 - Hypokalemia Status: Acute Assessment and Plan: - K - 3.1 --> 3.2 -->2.4 today (supplemented with potassium chloride 40 meq IVPB x1 and Potassium Chloride 40 meq PO x1), Repeat potassium 3.4 ordered additional Potassium chloride 40 meq PO x1. - trend and replete as needed. (6) Dementia: Code(s): F03.90 - Unspecified dementia, unspecified severity, without behavioral disturbance, psychotic disturbance, mood disturbance, and anxiety Status: Acute Assessment and Plan: #Chronic state vs acute complication --> MRI brain 01/10 showed: IMPRESSION: 1. Moderate nonspecific cerebral white matter disease and pontine disease, which likely represents chronic small vessel ischemic disease. --> consider neuro consultation - equipment operator intermodal yard placement vs nursing home placement at discharge. (7) Hypertension: Code(s): I10 - Essential (primary) hypertension Status: Acute Assessment and Plan: --Blood pressure 128/73-169/76. - Valsartan 160 mg PO daily. - monitor vital signs. (8) Hyperlipidemia: Code(s): E78.5 - Hyperlipidemia, unspecified Status: Acute Assessment and Plan: -Pravastatin 20 mg PO qhs. (9) Multinodular thyroid: Code(s): E04.2 - Nontoxic multinodular goiter Status: Acute Assessment and Plan: - tsh t4 - normal (10) Type 2 diabetes mellitus: Code(s): E11.9 - Type 2 diabetes mellitus without complications Status: Acute Assessment and Plan: ##chronic condition - HgbA1C - 6.5 -->Diabetic diet, -->accuchecks SSI - hypoglycemia protocol (11) Chronic obstructive pulmonary disease: Code(s): J44.9 - Chronic obstructive pulmonary disease, unspecified Status: Acute Assessment and Plan: #chronic --> continue current orders (12) Interstitial lung disease: Code(s): J84.9 - Interstitial pulmonary disease, unspecified Status: Acute Assessment and Plan: #chronic Subjective Date/time seen: 01/11/25 11:09 Interval history: Patient sitting up in bed eating. Patient denies chest pain, palpitations, headache, dizziness, nausea, or vomiting. A&Ox1. Review of Systems Review of Systems: All systems reviewed & are unremarkable except as noted in HPI and below Exam Const: General: comfortable and no acute distress Other: Pleasant and talkative. Resp: Effort & Inspection: normal respiratory effort Auscultation: clear to auscultation bilaterally Cardio: Rate: regular rate Rhythm: regular rhythm GI: GI Palp: Yes Soft to palpation Auscultation: normal bowel sounds Extrem: General: no pedal edema Psych: Other: Pleasantly confused and cooperative. Objective Data Vital Signs Vital Signs: Vital Signs - 24 hr 01/10/25 14:00 01/10/25 20:00 01/10/25 20:00 Temperature 97.8 F 98.0 F Pulse Rate 100 98 98 Respiratory Rate 16 17 17 Blood Pressure 142/99 H 166/73 H Pulse Oximetry 98 97 97 Oxygen Delivery Room Air 01/10/25 21:14 01/11/25 06:00 01/11/25 08:00 Temperature 98.3 F Pulse Rate 87 77 Respiratory Rate 20 18 18 Blood Pressure 169/76 H Pulse Oximetry 99 99 Oxygen Delivery Room Air Intake/Output Intake/Output: Intake & Output 01/09/25 01/09/25 01/10/25 01/11/25 00:59 23:59 23:59 23:59 Intake Total 2752.5 1197.1 1720 1096.7 Output Total 250 Balance 2502.5 1197.1 1720 1096.7 Meds/Results Medications: Active Medications Generic Name Dose Route Start Last Admin Trade Name Freq PRN Reason Stop Dose Admin Acetaminophen 650 mg 01/08/25 01:46 Acetaminophen 325 Mg Tablet PO Q6H PRN Mild Pain (1-3) or Fever Albuterol 2 puff 01/09/25 11:24 Albuterol Sulfate (*Sp) Aerosol 1 Puff INHALATION QID PRN Dyspnea Dextrose 12.5 gm 01/08/25 01:47 Dextrose 50% 25 Gm/50 Ml Syringe IV PUSH PRN PRN Hypoglycemia Protocol Enoxaparin Sodium 40 mg 01/08/25 09:00 01/11/25 08:29 Enoxaparin 40 Mg/0.4 Ml Syringe SUB-Q 40 mg DAILY GORDO Administration Fluticasone Propionate 1 spray 01/09/25 13:12 Fluticasone Propionate 0.05% Na Spr 16 Gm Btl (*Bkc) NASAL DAILY PRN Sinus Symptoms Glucagon 1 mg 01/08/25 01:47 Glucagon For Inj 1 Mg Vial IM PRN PRN Hypoglycemia Protocol Glucose 15 gm 01/08/25 01:47 Glucose Oral Gel 15 Gm Of Glucse In 37.5 Gm Tube PO PRN PRN Hypoglycemia Protocol Sodium Chloride 1,000 mls @ 100 mls/hr 01/07/25 19:35 01/11/25 07:58 Normal Saline Iv IV CONT 0 mls/hr .Q10H GORDO Infusion Dextrose 1,000 mls @ 100 mls/hr 01/08/25 01:47 Dextrose 5% 1,000 Ml IVPB PRN PRN Hypoglycemia Protocol Potassium Chloride 40 meq/ 520 mls @ 130 mls/hr 01/11/25 08:00 01/11/25 07:59 Sodium Chloride IVPB 01/11/25 11:59 130 mls/hr ONCE ONE Administration Insulin Aspart 2 - 5 units 01/08/25 08:00 01/11/25 08:12 Insulin Aspart (*Bkc) 100 Units/Ml SUB-Q Not Given TIDWM GORDO Protocol Insulin Aspart 1 - 2 units 01/08/25 21:00 01/10/25 20:37 Insulin Aspart (*Bkc) 100 Units/Ml SUB-Q Not Given HS [facility] Protocol Polyethylene Glycol 17 gm 01/10/25 09:00 01/11/25 08:29 Polyethylene Glycol 3350 17 Gm Powd.Pack PO 17 gm DAILY GORDO Administration Pravastatin Sodium 20 mg 01/09/25 21:00 01/10/25 20:46 Pravastatin Sodium 20 Mg Tablet BY MOUTH 20 mg QHS GORDO Administration Fluticasone/Salmeterol 2 puff 01/09/25 11:30 01/11/25 08:04 Fluticasone/Salmeterol 115-21 Mcg Inhaler 1 Puff INHALATION Not Given Q12HRT [facility] Radiology Results: ITS Impressions Head CT 01/07/25 17:47 IMPRESSION: No acute intracranial findings. Cervical Spine CT 01/07/25 17:52 IMPRESSION: No acute osseous abnormality cervical spine. Multilevel degenerative disc disease. Multiple nodules in the thyroid with calcification. Further evaluation advised Chest X-Ray 01/07/25 18:20 IMPRESSION: Bilateral interstitial changes suggestive of fibrotic changes. Superimposed pneumonitis and less likely edema cannot be excluded. Vague opacity in the right and left midzone. Follow-up in 3 months is advised. Hip/Pelvis X-Ray 01/07/25 18:24 IMPRESSION: No acute osseous abnormality of the bilateral hips and pelvis. Chest CTA 01/07/25 18:41 IMPRESSION: 1. No pulmonary embolism. 2. Fibrotic changes. Superimposed pneumonitis cannot be excluded. 3. Sliding hiatus hernia. 4. Bilateral renal cysts. Carotid Doppler Study 01/08/25 12:28 Impression: No hemodynamically significant stenosis of the bilateral internal carotid arteries. Antegrade flow in the bilateral vertebral arteries. Note: The methodology used is an indirect measurement validated against a direct method (such as the NASCET criteria) that compares diameters at the stenosis to the distal ICA. Brain MRI 01/10/25 16:01 IMPRESSION: 1. Moderate nonspecific cerebral white matter disease and pontine disease, which likely represents chronic small vessel ischemic disease. Labs Labs: Laboratory Results - last 24 hr 01/10/25 01/10/25 01/10/25 11:26 16:12 20:09 WBC RBC Hgb Hct MCV MCH MCHC RDW Plt Count MPV Immature Gran % (Auto) Neut % (Auto) Lymph % (Auto) Hubbard % (Auto) Eos % (Auto) Baso % (Auto) Lymph # (Auto) Hubbard # (Auto) Eos # (Auto) Baso # (Auto) Abs Immat Gran (auto) Absolute Neuts (auto) Absolute Nucleated RBC Nucleated RBC % Sodium Potassium Chloride Carbon Dioxide Anion Gap BUN Creatinine Estim Creat Clear Calc Estimated GFR Glucose POC Capillary Glucose 304 H 185 H 191 H Calcium Total Bilirubin AST ALT Alkaline Phosphatase Total Creatine Kinase NT-Pro-B Natriuret Pep Total Protein Albumin 01/11/25 01/11/25 06:11 07:56 WBC 9.9 RBC 4.48 Hgb 14.3 Hct 42.2 MCV 94.2 MCH 31.9 MCHC 33.9 RDW 12.3 Plt Count 239 MPV 9.8 Immature Gran % (Auto) 0.4 Neut % (Auto) 79.4 H Lymph % (Auto) 12.1 L Hubbard % (Auto) 7.8 Eos % (Auto) 0.2 Baso % (Auto) 0.1 L Lymph # (Auto) 1.20 Hubbard # (Auto) 0.8 H Eos # (Auto) 0.0 Baso # (Auto) 0.0 Abs Immat Gran (auto) 0.04 H Absolute Neuts (auto) 7.8 H Absolute Nucleated RBC 0.000 Nucleated RBC % 0.0 Sodium 135 L Potassium 2.4 L* Chloride 98 Carbon Dioxide 29 Anion Gap 8 BUN 8 D Creatinine 0.41 L Estim Creat Clear Calc 67 Estimated GFR > 60 Glucose 180 H POC Capillary Glucose 186 H Calcium 9.2 Total Bilirubin 1.6 H AST 36 ALT 27 Alkaline Phosphatase 99 Total Creatine Kinase 289 H NT-Pro-B Natriuret Pep 2030 H Total Protein 7.0 Albumin 4.1 Quality VTE Prophylaxis VTE prophylaxis: pharmacologic ordered
--- NOTE | 2025-01-11 12:15 | PCOTNOTE ---
Attempted to see Patient at this time. Patient having increased confusion, easily upset, emotional and declines to participate in activities.
[2025-01-11 12:16] LABS: Glucose Point of Care 205 mg/dl (65-105)
[2025-01-11] MEDS: INSULIN ASPART (*BKC) 100 UNITS/ML SUB-Q (12:17)
[2025-01-11 14:00] VITALS: BP 128/73; PULSE 86; RESP 16; TEMP 36.7; O2SAT 99
[2025-01-11 14:04] LABS: Anion Gap 10 mmol/L (4-12); Blood Urea Nitrogen 13 mg/dL (7-17); Carbon Dioxide 26 mmol/L (22-30); Chloride 99 mmol/L (98-107); Estimated CRCL calculation 59 ml/min; Estimated Glomerular Filt Rate > 60; Glucose 203 mg/dL (65-110); Potassium 3.4 mmol/L (3.4-5.0); Sodium 135 mmol/L (137-145)
[2025-01-11] MEDS: VALSARTAN 160 MG TABLET BY MOUTH (16:45)
[2025-01-11 16:46] LABS: Glucose Point of Care 190 mg/dl (65-105)
[2025-01-11 19:58] VITALS: PULSE 86; RESP 16; O2SAT 99
[2025-01-11 20:00] VITALS: BP 119/74; PULSE 96; RESP 18; TEMP 37.1; O2SAT 97
[2025-01-11 20:14] LABS: Glucose Point of Care 190 mg/dl (65-105)
[2025-01-11] MEDS: PRAVASTATIN SODIUM 20 MG TABLET BY MOUTH (20:52)
[2025-01-11] MEDS: ACETAMINOPHEN 325 MG TABLET 650 MG PO (20:52)
[2025-01-12 05:46] VITALS: BP 124/82; PULSE 79; RESP 14; TEMP 36.5; O2SAT 96
[2025-01-12 06:05] LABS: Basophils Percent Auto 0.3 % (0.2-1.2); Eosinophils Absolute Auto 0.1 K/mm3 (0-0.3); Eosinophils Percent Auto 0.8 % (0-4.4); Hematocrit 38.3 % (37.0-47.0); Hemoglobin 12.8 g/dL (12.0-15.0); Immature Granulocyte Absolute 0.01 K/mm3 (0.00-0.031); Immature Granulocyte Percent A 0.1 % (0-0.5); Lymphocytes Absolute Auto 1.72 K/mm3 (0.9-3.2); Lymphocytes Percent Auto 21.9 % (18.3-44.2); Mean Corpuscular HGB Conc 33.4 g/dl (32-36); Mean Corpuscular Hemoglobin 32.2 pg (26-34); Mean Corpuscular Volume 96.2 fl (80-100); Mean Platelet Volume 9.8 fl (7.4-10.4); Monocytes Absolute Auto 0.7 K/mm3 (0.1-0.6); Monocytes Percent Auto 8.8 % (2.6-8.5); Neutrophils Absolute Auto 5.3 K/mm3 (1.3-6.7); Neutrophils Percent Auto 68.1 % (45.5-73.1); Platelet Count Result 220 k/mm3 (150-375); Red Blood Count 3.98 M/mm3 (4.2-5.4); Red Cell Distribution Width 12.5 % (11.5-14.5); White Blood Count 7.8 K/mm3 (4.5-10.0)
[2025-01-12 06:38] LABS: Alanine Aminotransferase 24 U/L (6-35); Albumin Level 3.5 g/dL (3.5-5.1); Alkaline Phosphatase 74 U/L (38-126); Anion Gap 8 mmol/L (4-12); Aspartate Amino Transferase 26 U/L (14-36); Blood Urea Nitrogen 18 mg/dL (7-17); Calcium 9.5 mg/dL (8.4-10.2); Carbon Dioxide 24 mmol/L (22-30); Chloride 104 mmol/L (98-107); Creatine Kinase 111 U/L (30-135); Estimated CRCL calculation 58 ml/min; Estimated Glomerular Filt Rate > 60; Glucose 150 mg/dL (65-110); Potassium 3.9 mmol/L (3.4-5.0); Sodium 136 mmol/L (137-145)
--- NOTE | 2025-01-12 07:26 | PM.DS ---
DS: Admitting Diagnosis Discharge Date 01/12/25 Admitting Diagnosis Elevated troponin, Falls, expressive aphasia, Elevated creatinine, hypokalemia, dementia, HTN, HLD, multinodular thyroid, DM2, COPD, Interstitial lung disease DS: Discharge Diagnosis Discharge Diagnosis (1) Elevated troponin: Code(s): R79.89 - Other specified abnormal findings of blood chemistry Status: Acute Assessment and Plan: ##Elevated troponin levels - possibly secondary to rhabdomyolysis --> ECHO Summary - L EF >70% - Left ventricular chamber dimension is normal. Left ventricular systolic function is hyperdynamic, estimated at >70%. The left ventricular diastolic function is grade I diastolic dysfunction. E/e '12 is mildly elevated. Left atrial chamber dimension is mildly enlarged. There is mild aortic valve sclerosis. The mitral valve has moderately calcified annulus. No pulmonary hypertension, estimated pulmonary arterial systolic pressure is 17 mmHg. 01/12/25: Elevated troponins were felt to be due to the pt's degree of rhabdo upon arrival. No s/s of ACS during hospitalization. (2) Unwitnessed fall: Code(s): R29.6 - Repeated falls Status: Acute Assessment and Plan: --> PT/ OT to eval and treat --> Patient appears very weak may benefit from SNF 01/12/25: Discharge today to [facility] (3) Expressive aphasia: Code(s): R47.01 - Aphasia Status: Acute Assessment and Plan: ##unknown cause --> speech appears improving -->MRI brain ordered to rule out stroke. MRI brain 01/10 showed: IMPRESSION: 1. Moderate nonspecific cerebral white matter disease and pontine disease, which likely represents chronic small vessel ischemic disease. -->carotid dopplers: No hemodynamically significant stenosis of the bilateral internal carotid arteries.Antegrade flow in the bilateral vertebral arteries. -improved with hydration - speech therapy seen and examined her- cleared but since pt has no teeth-will need diet modifications-ordered 01/12/25: Not likely due to CVA. Continue current diet at [facility]. (4) Elevated creatine kinase: Code(s): R74.8 - Abnormal levels of other serum enzymes Status: Acute Assessment and Plan: ##rhabdo --> most likely due to fall, unknown how long patient laid on the floor -->continue to monitor CK - 605--> 565--> 311-->289 -- BNP 2030, stop iv fluids. Patient with good oral intake. 01/12/25: Resolved, hydrating orally well (5) Hypokalemia: Code(s): E87.6 - Hypokalemia Status: Resolved Assessment and Plan: - K - 3.1 --> 3.2 -->2.4 today (supplemented with potassium chloride 40 meq IVPB x1 and Potassium Chloride 40 meq PO x1), Repeat potassium 3.4 ordered additional Potassium chloride 40 meq PO x1. - trend and replete as needed. 01/12/25: Resolved with Potassium today of 3.9. Stable for discharge (6) Dementia: Code(s): F03.90 - Unspecified dementia, unspecified severity, without behavioral disturbance, psychotic disturbance, mood disturbance, and anxiety Status: Acute Assessment and Plan: #Chronic state vs acute complication --> MRI brain 01/10 showed: IMPRESSION: 1. Moderate nonspecific cerebral white matter disease and pontine disease, which likely represents chronic small vessel ischemic disease. 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 01/12/25: Discharge to [facility] today (7) Hypertension: Code(s): I10 - Essential (primary) hypertension Status: Chronic Assessment and Plan: --Blood pressure 128/73-169/76. - Valsartan 160 mg PO daily. - monitor vital signs. (8) Hyperlipidemia: Code(s): E78.5 - Hyperlipidemia, unspecified Status: Chronic Assessment and Plan: -Pravastatin 20 mg PO qhs. (9) Multinodular thyroid: Code(s): E04.2 - Nontoxic multinodular goiter Status: Chronic Assessment and Plan: - tsh t4 - normal (10) Type 2 diabetes mellitus: Code(s): E11.9 - Type 2 diabetes mellitus without complications Status: Chronic Assessment and Plan: ##chronic condition - HgbA1C - 6.5 -->Diabetic diet, -->accuchecks SSI - hypoglycemia protocol 01/12/25: Discharge with home regimen. (11) Chronic obstructive pulmonary disease: Code(s): J44.9 - Chronic obstructive pulmonary disease, unspecified Status: Chronic Assessment and Plan: #chronic --> continue current orders (12) Interstitial lung disease: Code(s): J84.9 - Interstitial pulmonary disease, unspecified Status: Chronic Assessment and Plan: #chronic DS: Summary Hospital Course Reason for hospitalization: Altered Mental Status w/repeat falls and abnormal labs Hospital Course: This 84 year old female pt w/PMH of hypertension, hyperlipidemia, ascending aortic aneurysm, chronic obstructive pulmonary disease, multinodular thyroid, type 2 diabetes mellitus as well as other co-morbidities, presented to the ER and was subsequently admitted to the hospital on 01/07/25 after being brought in by EMS needing evaluation from a fall. [facility]. The pt being a very poor historian, was unable to give information pertinent to the admission and most information was obtained from the EMR and the pt's niece. Niece went to visit the patient on 01/07/25 and found her on lying the ground and presumed the patient had a fall sometime overnight although the patient is unable to say when or how she ended up on the floor. Niece reports that the patient is becoming increasingly forgetful as of lately and is not taking care of herself very well. It is my understanding that she has had several falls the last several weeks. She is forgetting to eat at times and is not good at answering the phone any longer. Niece believes that she will need assisted living or memory care. There are no reports of fever, flu symptoms, vomiting, or diarrhea. At the time of admission the patient was confused to situation but voices no complaints. She denied headache, chest pain, shortness of breath, abdominal pain, nausea, vomiting, diarrhea, and dysuria. She also denied vertigo, visual changes, numbness and tingling, and focal weakness. In the ED: Vital signs were stable on arrival with a blood pressure of 142/97. Labs are significant for WBC count of 11.3, sodium 135, potassium 3.3, creatinine 0.42, glucose 152, total CK 539, troponin 0.065, proBNP 1760. Urinalysis was positive for 2+ protein, 2+ glucose, 2+ ketones, 1+ blood. Respiratory panel was negative. Head and cervical spine CTs were without acute findings. Multiple nodules noted in the thyroid with calcifications for which she is being monitored closely as an outpatient. Chest CTA was negative for PE. Hip and pelvis x-rays were without acute findings. She was given potassium chloride 40 mEq and 1 L normal saline and she was admitted with the understanding that she would need probable placement for higher level of care. During her hospitalization, she has had interval improvement in her overall status. The initial elevated Troponins were felt to be due to her degree of dehydration and Rhabdo. ECHO showed a normal LVSF at 70% and a Grade 1 diastolic dysfunction. Her Potassium was corrected while here and is normal today. MRI that was performed did not show an acute CVA. No further medical complications arose during her admission. She was evaluated by PT/OT and deemed appropriate for detention placement. Pt is accepted and will be discharged to [facility] today. Status at Discharge Cognitive/behavioral status at discharge: At new baseline Functional status at discharge: uses cane/walker Overall status at discharge: patient is not back to baseline Time Spent with Patient Time attestation: Total time spent providing and/or coordinating discharge services: Time spent: Greater than 30 minutes Specific discharge activities: Discharge follow up, medications Exam Narrative: General: Chronically ill, A&O x1, pleasant Respiratory: Clear lung prakash Cardiovascular: Regular rate and rhythm with S1-S2. Gastrointestinal: Abdomen is soft, nontender, and nondistended with positive bowel sounds. Skin: Warm and dry. Extremities: No cyanosis, clubbing, or significant edema. Radial and pedal pulses intact. Neurological: No gross focal deficits casual conversations. Psychiatric: Pleasantly confused and cooperative. DS: Data Data Completed and Pending Completed studies during hospitalization: ITS Impressions Head CT 01/07/25 17:47 IMPRESSION: No acute intracranial findings. Cervical Spine CT 01/07/25 17:52 IMPRESSION: No acute osseous abnormality cervical spine. Multilevel degenerative disc disease. Multiple nodules in the thyroid with calcification. Further evaluation advised Chest X-Ray 01/07/25 18:20 IMPRESSION: Bilateral interstitial changes suggestive of fibrotic changes. Superimposed pneumonitis and less likely edema cannot be excluded. Vague opacity in the right and left midzone. Follow-up in 3 months is advised. Hip/Pelvis X-Ray 01/07/25 18:24 IMPRESSION: No acute osseous abnormality of the bilateral hips and pelvis. Chest CTA 01/07/25 18:41 IMPRESSION: 1. No pulmonary embolism. 2. Fibrotic changes. Superimposed pneumonitis cannot be excluded. 3. Sliding hiatus hernia. 4. Bilateral renal cysts. Carotid Doppler Study 01/08/25 12:28 Impression: No hemodynamically significant stenosis of the bilateral internal carotid arteries. Antegrade flow in the bilateral vertebral arteries. Note: The methodology used is an indirect measurement validated against a direct method (such as the NASCET criteria) that compares diameters at the stenosis to the distal ICA. Brain MRI 01/10/25 16:01 IMPRESSION: 1. Moderate nonspecific cerebral white matter disease and pontine disease, which likely represents chronic small vessel ischemic disease. Labs on day of discharge: Labs from last 24 hours 01/12/25 01/11/25 01/11/25 05:46 20:11 16:41 WBC 7.8 RBC 3.98 L Hgb 12.8 Hct 38.3 MCV 96.2 MCH 32.2 MCHC 33.4 RDW 12.5 Plt Count 220 MPV 9.8 Immature Gran % (Auto) 0.1 Neut % (Auto) 68.1 Lymph % (Auto) 21.9 [place] % (Auto) 8.8 H Eos % (Auto) 0.8 Baso % (Auto) 0.3 Lymph # (Auto) 1.72 [place] # (Auto) 0.7 H Eos # (Auto) 0.1 Baso # (Auto) 0.0 Abs Immat Gran (auto) 0.01 Absolute Neuts (auto) 5.3 Absolute Nucleated RBC 0.000 Nucleated RBC % 0.0 Sodium 136 L Potassium 3.9 Chloride 104 Carbon Dioxide 24 Anion Gap 8 BUN 18 H Creatinine 0.48 L Estim Creat Clear Calc 58 Estimated GFR > 60 Glucose 150 H POC Capillary Glucose 190 H 190 H Calcium 9.5 Total Bilirubin 1.0 AST 26 ALT 24 Alkaline Phosphatase 74 Total Creatine Kinase 111 Total Protein 6.0 L Albumin 3.5 01/11/25 01/11/25 01/11/25 13:08 12:09 07:56 WBC RBC Hgb Hct MCV MCH MCHC RDW Plt Count MPV Immature Gran % (Auto) Neut % (Auto) Lymph % (Auto) [place] % (Auto) Eos % (Auto) Baso % (Auto) Lymph # (Auto) [place] # (Auto) Eos # (Auto) Baso # (Auto) Abs Immat Gran (auto) Absolute Neuts (auto) Absolute Nucleated RBC Nucleated RBC % Sodium 135 L Potassium 3.4 Chloride 99 Carbon Dioxide 26 Anion Gap 10 BUN 13 D Creatinine 0.47 L Estim Creat Clear Calc 59 Estimated GFR > 60 Glucose 203 H POC Capillary Glucose 205 H 186 H Calcium 9.0 Total Bilirubin AST ALT Alkaline Phosphatase Total Creatine Kinase Total Protein Albumin Discharge Plan Discharge Attending physician on discharge: Shavon Sood Discharging Clinician: Shavon Sood Anticipated Discharge Date/Time: 01/12/25 07:39 Patient Disposition: SNF Activity: as tolerated Diet: heart healthy and diabetic Discharge Instructions: Keep follow up appointments. Diet should be soft in consistency and easy to chew. Patient Language: Macanese Stand Alone Forms: [facility] Discharge Follow-up/Referrals: Tom Hernandez MD [Primary Care Provider] - Discharge Medications: New insulin aspart U-100 [Novolog U-100 Insulin aspart] 100 unit/mL Solution 1 - 2 unit subcut HS Qty: 10 0RF Protocol: Insulin Corrective Low-Dose Condition: glucose < 70 mg/dl Dose/Route: Follow Hypoglycemia Order Condition: glucose 70-200 mg/dl Dose/Route: No additional insulin Condition: glucose 201-250 mg/dl Dose/Route: 1 units sub-Q Condition: glucose 251-300 mg/dl Dose/Route: 1 units sub-Q Condition: glucose 301-350 mg/dl Dose/Route: 2 units sub-Q Condition: glucose 351-400 mg/dl Dose/Route: 2 units sub-Q Condition: glucose > 400 mg/dl Dose/Route: Call Protocol Text: PROTOCOL: If glucose < 70 mg/dl, then Follow Hypoglycemia Order; If glucose 70-200 mg/dl, then No additional insulin; If glucose 201-250 mg/dl, then 1 units sub-Q; If glucose 251-300 mg/dl, then 1 units sub-Q; If glucose 301-350 mg/dl, then 2 units sub-Q; If glucose 351-400 mg/dl, then 2 units sub-Q; If glucose > 400 mg/dl, then Call Rx Instructions: PROTOCOL: If glucose < 70 mg/dl, then Follow Hypoglycemia Order; If glucose 70-200 mg/dl, then No additional insulin; If glucose 201-250 mg/dl, then 1 units sub-Q; If glucose 251-300 mg/dl, then 1 units sub-Q; If glucose 301-350 mg/dl, then 2 units sub-Q; If glucose 351-400 mg/dl, then 2 units sub-Q; If glucose > 400 mg/dl, then Call insulin aspart U-100 [Novolog U-100 Insulin aspart] 100 unit/mL Solution 2 - 5 unit subcut TIDWM Qty: 10 0RF Protocol: Insulin Corrective Low-Dose Condition: glucose < 70 mg/dl Dose/Route: Follow Hypoglycemia Order Condition: glucose 70-200 mg/dl Dose/Route: No additional insulin Condition: glucose 201-250 mg/dl Dose/Route: 2 units sub-Q Condition: glucose 251-300 mg/dl Dose/Route: 3 units sub-Q Condition: glucose 301-350 mg/dl Dose/Route: 4 units sub-Q Condition: glucose 351-400 mg/dl Dose/Route: 5 units sub-Q Condition: glucose > 400 mg/dl Dose/Route: Call MD Protocol Text: PROTOCOL: If glucose < 70 mg/dl, then Follow Hypoglycemia Order; If glucose 70-200 mg/dl, then No additional insulin; If glucose 201-250 mg/dl, then 2 units sub-Q; If glucose 251-300 mg/dl, then 3 units sub-Q; If glucose 301-350 mg/dl, then 4 units sub-Q; If glucose 351-400 mg/dl, then 5 units sub-Q; If glucose > 400 mg/dl, then Call MD; PROTOCOL TEXT: *No Correction Dose at Bedtime* Rx Instructions: PROTOCOL: If glucose < 70 mg/dl, then Follow Hypoglycemia Order; If glucose 70-200 mg/dl, then No additional insulin; If glucose 201-250 mg/dl, then 2 units sub-Q; If glucose 251-300 mg/dl, then 3 units sub-Q; If glucose 301-350 mg/dl, then 4 units sub-Q; If glucose 351-400 mg/dl, then 5 units sub-Q; If glucose > 400 mg/dl, then Call MD; PROTOCOL TEXT: *No Correction Dose at Bedtime* pravastatin 20 mg Tablet 20 mg BYMOUTH QHS Qty: 30 0RF Continued fluticasone propionate 50 mcg/actuation spray,suspension 1 spray NASAL DAILY PRN (Reason: Sinus Symptoms) calcium carbonate-vitamin D3 [Calcium 600 + D(3)] 600 mg-5 mcg (200 unit) tablet 1 tablet PO DAILY polyethylene glycol 3350 [Miralax] 17 gram/dose powder 17 g PO DAILY Symbicort 160-4.5 mcg/actuation HFA aerosol inhaler 2 puff INHALATION Q12H Qty: 10.2 5RF albuterol sulfate [ProAir HFA] 90 mcg/actuation Hfa Aerosol Inhaler 2 puff INHALATION QID PRN (Reason: Dyspnea) cholecalciferol (vitamin D3) [Vitamin D3] 25 mcg (1,000 unit) Capsule 25 mcg PO DAILY nystatin 100,000 unit/gram cream 1 applic topical BID PRN (Reason: Rash) (DME) Diabetic Shoes 10.5 See Rx Instructions .Route .MEDSUPPLY Qty: 1 0RF Rx Instructions: Needs 1 pair of diabetic shoes. mecobalamin (vitamin B12) 1,000 mcg tablet,chewable 1,000 mcg PO DAILY Qty: 90 1RF (DME) OneTouch Ultra Test Strip See Rx Instructions .Route Qty: 100 3RF Rx Instructions: Check blood sugars once per day (DME) lancets 30 gauge misc See Rx Instructions .Route Qty: 100 3RF Rx Instructions: check blood sugars once per day montelukast 10 mg tablet See Rx Instructions .ROUTE .COMPLEX Qty: 90 3RF Dose Instruction: TAKE 1 TABLET AT BEDTIME Rx Instructions: TAKE 1 TABLET AT BEDTIME (DME) OneTouch Ultra Test Strip See Rx Instructions .Route Qty: 100 3RF Rx Instructions: As directed clotrimazole 1 % cream 1 applic topical Q12H Qty: 45 1RF levocetirizine 5 mg tablet See Rx Instructions .ROUTE .COMPLEX Qty: 90 1RF Dose Instruction: TAKE 1 TABLET EVERY MORNING Rx Instructions: TAKE 1 TABLET EVERY MORNING valsartan 160 mg tablet See Rx Instructions .ROUTE .COMPLEX Qty: 90 3RF Dose Instruction: TAKE 1 TABLET DAILY Rx Instructions: TAKE 1 TABLET DAILY Discontinued pravastatin 40 mg tablet See Rx Instructions .ROUTE .COMPLEX Qty: 90 3RF Dose Instruction: TAKE 1 TABLET AT BEDTIME Rx Instructions: TAKE 1 TABLET AT BEDTIME Xigduo XR 10-1,000 mg tablet, IR - ER, biphasic 24hr See Rx Instructions .ROUTE .COMPLEX Qty: 90 1RF Dose Instruction: TAKE ONE TABLET BY MOUTH DAILY AT 9 AM Rx Instructions: TAKE ONE TABLET BY MOUTH DAILY AT 9 AM betamethasone valerate 0.1 % cream 1 applic topical BID Qty: 45 1RF Date of admission: 01/08/25 08:28 Primary Care Provider: Tom Hernandez Admitting Provider: Rogelio Singer Attending physician on admission: Shavon Sood Condition: Stable Quality VTE Prophylaxis VTE prophylaxis: pharmacologic ordered Hospitalist MIPS Heart Failure (Exclusion) Patient has history of Heart Transplant or Left Ventricular Assistive Device?: No IF YES, STOP HERE Heart Failure (Qualifier) Patient has current or prior documentation of LVEF less than or equal to 40%, or mod/servere depressed LVSF?: No IF NO, STOP HERE
[2025-01-12 07:50] VITALS: RESP 14; O2SAT 96
[2025-01-12 07:55] LABS: Glucose Point of Care 153 mg/dl (65-105)
[2025-01-12] MEDS: FLUTICASONE/SALMETEROL 115-21 MCG INHALER 1 PUFF 2 PUFF INHALATION (08:02)
[2025-01-12] MEDS: ENOXAPARIN 40 MG/0.4 ML SYRINGE SUB-Q (08:23)
[2025-01-12] MEDS: polyethylene glycoL 3350 17 GM POWD.PACK PO (08:23)
[2025-01-12] MEDS: VALSARTAN 160 MG TABLET BY MOUTH (08:23)
[2025-01-12 11:48] LABS: Glucose Point of Care 186 mg/dl (65-105)
[2025-01-12 14:00] VITALS: BP 114/81; PULSE 94; RESP 16; TEMP 36.7; O2SAT 95
== END 2025-01-12 15:00 | DRG 566 ==
LOC: ANHED 19:37 → ANHIMU 20:28 → ANH3MEDSUR 01-08 13:57
PROVIDERS: Family Medicine; Nurse Practitioner Family; Physician Assistant; Admitting Provider Internal Medicine; Emergency Provider Physician Assistant; PCP Internal Medicine; Visit Provider Nurse Practitioner Adult Health
DX: T79.6XXA Traumatic ischemia of muscle, initial encounter (principal); I25.10 Atherosclerotic heart disease of native coronary artery without angina pectoris; J84.10 Pulmonary fibrosis, unspecified; J44.9 Chronic obstructive pulmonary disease, unspecified; E87.6 Hypokalemia; E53.8 Deficiency of other specified B group vitamins; E55.9 Vitamin D deficiency, unspecified; E78.00 Pure hypercholesterolemia, unspecified; E11.9 Type 2 diabetes mellitus without complications; M85.80 Other specified disorders of bone density and structure, unspecified site; M19.90 Unspecified osteoarthritis, unspecified site; R29.6 Repeated falls; R09.89 Other specified symptoms and signs involving the circulatory and respiratory systems; F03.90 Unspecified dementia, unspecified severity, without behavioral disturbance, psychotic disturbance, mood disturbance, and anxiety; Z20.822 Contact with and (suspected) exposure to COVID-19; Z96.651 Presence of right artificial knee joint; Z86.0101 Personal history of adenomatous and serrated colon polyps; Z79.899 Other long term (current) drug therapy; Z87.891 Personal history of nicotine dependence
CPT/HCPCS: 36415; 70450; 70551; 71045; 71275; 72125; 73521; 80048; 80053; 80061; 81001; 82550; 82948; 83036; 83735; 83880; 84443; 84484; 85025; 85610; 85730; 87637; 92610; 93005; 93306; 93880; 94640; 96360; 96375; 97110; 97162; 97165; 97530; 99285; A9270; G0378; J1650; J1815; J3480; J7030; J7040; Q9967

== ENCOUNTER 2025-05-04 11:44 | Outpatient (CLI) | payer MEDICARE, SELFPAY ==
--- OUTSIDE RECORDS SUMMARY | 2025-05-04 11:50 | XMS_ITS | Referral Summary ---
Author Organization [facility] at the [facility] Office Center Address [address] [place] [address] Care Team Providers Care Laminator Preforms Name Role Phone Tom Hernandez MD Primary Care Provider [phone] Allergies Active Allergy Reactions Criticality Noted Date Comments Cephalosporins Unknown Pt doesn't remember Cycloserine Unknown 04/28/2019 Pt doesn't remember Cyclosporine Unknown 04/28/2019 Pt doesn't rememeber Penicillins Swelling,Joint pain Medium Tramadol Itching Low 04/28/2019 Medications valsartan-hydro CHLOROthiazide (DIOVAN-HCT) 160-12.5 mg per tablet 9 Active pravastatin (PRAVACHOL) 40 mg tablet 9 Active polyethylene glycol (MIRALAX) 17 gram/dose powder 1 9 Active montelukast (SINGULAIR) 10 mg tablet 9 Active albuterol 2.5 mg /3 mL (0.083 %) nebulizer solution Take 3 mL (2.5 mg total) by nebulization 4 (four) times a day For treatment of Asthma,J45.909 120 vial 6 9 Active nystatin cream APPLY TOPICALLY TO THE AFFECTED AREA TWICE DAILY 1 Active calcium carbonate-vit D3-min 600 mg calcium- 200 unit tablet Take by mouth Acti ve C,E,zinc,copper [id number] 250-5-1 mg capsule Take by mouth Ocuvite Active Xigduo XR 5-500 mg tablet, IR & ER, biphasic 24hr 1 Active fluconazole (DIFLUCAN) 150 mg tablet Take 150 mg by mouth daily 1 Active OneTouch Ultra Test strip USE TO CHECK BLOOD SUGAR ONCE A DAY 2 Active OneTouch Delica Plus Lancet 30 gauge misc USE TO CHECK BLOOD SUGAR ONCE PER DAY 2 Active valsartan (DIOVAN) 160 mg tablet 2 Active coffee xt/phosphatidyl serine (NEURIVA ORIGINAL ORAL) Take 1 tablet/capsule by mouth daily Active clotrimazole (LOTRIMIN) 1 % external solution Apply 1 application topically 2 (two) times a day Active betamethasone valerate (VALISONE) 0.1 % cream Apply 1 application topically 2 (two) times a day Active Xigduo XR 10-1,000 mg tablet, IR & ER, biphasic 24hr 2 Active albuterol HFA (PROVENTIL HFA,VENTOLIN HFA,PROAIR HFA) 90 mcg/actuation inhaler Inhale 2 puffs every 6 (six) hours as needed for wheezing or shortness of breath 3 each 3 3 Active Symbicort 160-4.5 mcg/actuation inhaler Inhale 2 puffs 2 (two) times a day Rinse mouth with water after use. Do not swallow. 30.6 g 1 3 Active fluticasone propionate (FLONASE) 50 mcg/actuation nasal spray Administer 1 spray into each nostril daily 6 each 3 3 Active cetirizine 10 mg capsule Take by mouth Activ e Active Problems Problem Noted Date Diagnosed Date Tinnitus of both ears 10/21/2023 Impacted cerumen of left ear 10/21/2023 Dyspnea 04/28/2016 Personal history of nicotine dependence 04/28/20 16 Uncomplicated asthma 04/28/2016 Overview (04/28/2019): Continue current medications including Symbicort 80/4.5 twice a day , albuterol p.r.n. Singulair daily, and Flonase nasal spray. I would increase dose of Symbicort 160/4.5 b.i.d. Obesity with body mass index 30 or greater 02/21 Interstitial lung disease 10/19/2015 Disorder of lung 10/17/2015 Immunizations Immunization Administration Dates Next Due Influenza, Quadrivalent, Spl it, Preservative Free, Intramuscular 07/29/2018 Influenza, Trivalent, High D ose, Split, Preservative Free, Intramuscular 11/08/2019,08/04/2017,08/27/2016,07/11,08/03/2013 Influenza, Trivalent, IM (MDV) 10/09/2012 Influenza, Trivalent, Preser vative Free, Intramuscular 08/20/2016 Influenza, Unspecified 07/26/2014 Pneumococcal Conjugate PCV 13 08/21/2018 Pneumococcal Polysaccharide PPV23 08/13/2017,12/2013 Social History Tobacco Use Types Packs/Day Years Used Date Smoking Tobacco: Former Cigarettes Q uit: 1998 Smokeless Tobacco: Never Tobacco Cessation:Counseling Given: Not Answered Personal Safety Answer Date Recorded Getting School Help Needed Not on file 10/19 Comments Unknown Sex and Gender Information Value Date Recorded Sex Assigned at Not on file Legal 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 [employer] Gender Identity Not on file Sexual Orientation Not on file Last Filed Vital Signs Vital Sign Reading Time Taken Comments Blood Pressure 134/76 10/22/2023 10:57 AM [employer] Pulse 75 10/22/2023 10:57 AM [employer] Temperature 36.5 C (97.7 F) 10/22/2023 10:57 AM [employer] Respiratory Rate 18 10/22/2023 10:57 AM [employer] Oxygen Saturation 94% 10/22/2023 10:57 AM [employer] Inhaled Oxygen Concentration - - Weight 67.6 kg (149 lb) 10/22/2023 10:57 AM [employer] Height 170.2 cm (5' 7) 10/22/2023 10:57 AM [employer] Body Mass Index 23.34 10/22/2023 10:57 AM [employer] Plan of Treatment Not on file Insurance MEDICARE [facility] UHC MEDICARE ADVANTAGE [facility] Address: [address] [address] [place] [address] MEDICARE [facility] Care Teams Laminator Preforms Relationship Specialty Start Date End Date Tom Hernandez MD PCP - General Internal Medicine 02/11/22
--- OUTSIDE RECORDS SUMMARY | 2025-05-04 11:50 | XMS_ITS | Clinical Summary ---
Author Organization [facility] at the [facility] Office Center Address [address] [place] [address] Care Team Providers Care Engineering Technologist Name Role Phone Tom Hernandez MD Primary Care Provider [phone] Allergies Active Allergy Reactions Criticality Noted Date [...] tablet Take by mouth Acti ve C,E,zinc,copper [id number] 250-5-1 mg capsule Take by mouth Ocuvite [...] PCV 13 08/21/2018 Pneumococcal Polysaccharide PPV23 08/13/2017,12/2013 Surgical History Surgery Date Site/Laterality Comments COLONOSCOPY GUM SURGERY BARTHOLIN GLAND CYST EXCISION 11/02/1989 - 11/01/1990 REPLACEMENT TOTAL KNEE 11/02/2012 - 11/01/2013 Right ARM SURGERY Left torn ligament BUNIONECTOMY 11/02/1998 - 11/01/1999 Right Medical History Medical History Date Comments Asthma Cataract Diabetes (HCC) HTN (hypertension) Family History Relation Name Status Comments Father Mother Social History Tobacco Use Types Packs/Day Years Used Date Smoking Tobacco: Former Cigarettes Q uit: 1998 Smokeless Tobacco: Never Tobacco Cessation:Counseling Given: Not Answered Personal Safety Answer Date Recorded Getting School Help Needed Not on file 10/19 Comments Unknown Sex and Gender Information Value Date Recorded Sex Assigned at Not on file Legal Sex Female 6:21 AM CHILDCARE CENTER ADMINISTRATOR Gender Identity Not on file Sexual Orientation Not on file Obstetrics History Last Filed Vital Signs Vital Sign Reading Time Taken Comments Blood Pressure 134/76 10/22/2023 10:57 AM CHILDCARE CENTER ADMINISTRATOR Pulse 75 10/22/2023 10:57 AM CHILDCARE CENTER ADMINISTRATOR Temperature 36.5 C (97.7 F) 10/22/2023 10:57 AM CHILDCARE CENTER ADMINISTRATOR Respiratory Rate 18 10/22/2023 10:57 AM CHILDCARE CENTER ADMINISTRATOR Oxygen Saturation 94% 10/22/2023 10:57 AM CHILDCARE CENTER ADMINISTRATOR Inhaled Oxygen Concentration - - Weight 67.6 kg (149 lb) 10/22/2023 10:57 AM CHILDCARE CENTER ADMINISTRATOR Height 170.2 cm (5' 7) 10/22/2023 10:57 AM CHILDCARE CENTER ADMINISTRATOR Body Mass Index 23.34 10/22/2023 10:57 AM CHILDCARE CENTER ADMINISTRATOR Plan of Treatment Health Maintenance Due Date Last Done Comments Depression Screening 1941 Fall Risk Assessment 1941 Osteoporosis Screening-Bone Density Scan 1941 DTaP/Tdap/Td Vaccine (1 - Tdap) 1952 Hepatitis B Screening 1959 Zoster Vaccine (1 of 2) 1991 Well Visit 65+ 2006 Influenza Vaccine (#1) 2025 0, 07/29/2018, 08/04/2017, Additional history exists Pneumococcal vaccine 65+ Completed 018, 08/13/2017, 11/03/2013 Insurance MEDICARE [facility]IC[facility] Address: [address] [address] [place] [address] MEDICARE [facility] Care Teams Engineering Technologist Relationship Specialty Start Date End Date Tom Hernandez MD PCP - General Internal Medicine 02/11/22
--- OUTSIDE RECORDS SUMMARY | 2025-05-04 11:50 | XMS_ITS | Encounter Summary ---
Author Organization [facility] Address [facility] [place] [address] Care Team Providers Care Wave Soldering Machine Operator Name Role Phone Tom Hernandez MD Primary Care Provider [phone] Encounter Details Date Type Department Care Team (Late st Contact Info) Description 01/18/2019 Abstract [facility] CONVERSION [address] [place] [address] , Generic ConversionMD Social History Tobacco Use Types Packs/Day Years Used Date Smoking Tobacco: Never Assessed Comments Unknown Sex and Gender Information Value Date Recorded Sex Assigned at Not on file Legal Sex Female 10:22 PM DISASTER RECOVERY COORDINATOR Gender Identity Not on file Sexual Orientation [...] documented as of this encounter Care Teams Wave Soldering Machine Operator Relationship Specialty Start Date End Date Tom Hernandez MD PCP - General INTERNAL MEDICINE 03/19/19 documented as of this encounter
--- OUTSIDE RECORDS SUMMARY | 2025-05-04 11:50 | XMS_ITS | Clinical Summary ---
Author Organization [facility] Address [address] [address] Care Team Providers Care Lineworker Name Role Phone Unavailable Primary Care Provider Unavailabl e Source Comments [facility],non-owned Affiliates and Associated Physician Practices is amultiple site organization consisting of ambulatory clinics and hospital sitesin [place], [place], [place] and [place]. This disclosure is being madepursuant to the Care Everywhere program and may not contain all information available regarding this patient. Last updated 18.[facility] Immunizations Immunization Administration Dates Next Due INFLUENZA VACCINE, HIGH-DOSE , QUADR. (FLUZONE HIGH-DOSE QUADRIVALENT; 65Y+), 0.7 ML (HD-IIV4) 08/27/2016 Social History Tobacco Use Types Packs/Day Years Used Date Smoking Tobacco: Never Assessed Comments Unknown Sex and Gender Information Value Date Recorded Sex Assigned at Not on file Legal Sex Female 11:44 AM CDT Gender Identity Not on file Sexual Orientation [...] 2016 COVID-19 VACCINE (2023-2 5 season) 2024 DEPRESSION SCREENING 11/02/2024 INFLUENZA VACCINE (Season Ended) 2025 08/27/20 16 HEPATITIS B VACCINE Aged Out No longe r eligible based on patient's age to complete this topic HIB VACCINE Aged Out No longer eligi ble based on patient's age to complete this topic HPV VACCINE Aged Out No longer eligi ble based on patient's age to complete this topic MENINGOCOCCAL (Group B) VACC INE SHARED DECISION-MAKING Aged Out No longer eligibl e based on patient's age to complete this topic MENINGOCOCCAL GROUPS A/C/Y/W VACCINE Aged Out No longer eligible b ased on patient's age to complete this topic Insurance [id number] MEDICARE ADVANTAGE MEDICARE [facility] MEDICARE [facility] MEDICARE
--- OUTSIDE RECORDS SUMMARY | 2025-05-04 11:50 | XMS_ITS | Encounter Summary ---
Author Organization [facility] Facility Care Team Providers Care Faa Certified Powerplant Mechanic Name Role Phone Tom Hernandez MD Primary Care Provider [phone] Dao Rooney DO Primary Care Provider [phone] Tom Hernandez MD Primary Care Provider [phone] Encounter Details Date Type Department Care Team (Latest Contact Info) Description 10/15/2017 Orders Only [facility] CLINCONV ProviderPablo MD [address] [place] [address] Social History Tobacco Use Types Packs/Day Years Used Date Smoking Tobacco: Former Comments Unknown Sex and Gender Information Value Date Recorded Sex Assigned at Not on file Legal Sex Female 6:21 AM HALL DIRECTOR Gender Identity Not on file Sexual Orientation Not on file documented as of this encounter Plan of Treatment Not on file documented as of this encounter Procedures Procedure Name Priority Date/Time Associated Diagnosis Comments PROCEDURE - RESULT 10/27/2017 12 :00 AM HALL DIRECTOR documented in this encounter Results * PROCEDURE - RESULT (10/27/2017 12:00 AM HALL DIRECTOR) Narrative 10/27/2017 12:00 AM HALL DIRECTOR Ordered by an unspecified provider. Historical Provider Final Res ult documented in this encounter Visit Diagnoses Not on filedocumented in this encounter Care Teams Faa Certified Powerplant Mechanic Relationship Specialty Start Date End Date Tom Hernandez MD [address] [facility] [address] [place] [address] PCP - General Internal Medicine 04/14/19 01/02/20 Dao Rooney DO [address] [facility] [address] [place] [address] PCP - General Internal Medicine 01/03/20 02/10/22 Tom Hernandez MD [address] [facility] [address] [place] [address] PCP - General Internal Medicine 02/11/22 documented as of this encounter
--- OUTSIDE RECORDS SUMMARY | 2025-05-04 11:50 | XMS_ITS | Clinical Summary ---
Author Organization [facility] Address [facility] [place] [address] Care Team Providers Care Rib Knitter Name Role Phone Tom Rossi MD Primary Care Provider Family History Medical History Relation Comments Breast Cancer Neg Hx Social History Tobacco Use Types Packs/Day Years Used Date Smoking Tobacco: Never Assessed Comments Unknown Sex and Gender Information Value Date Recorded Sex Assigned at Not on file Legal Sex Female 10:22 PM ADVERTISING SALES MANAGER Gender Identity Not on file Sexual Orientation Not on file Plan of Treatment Health Maintenance Due Date Last Done Comments DTaP, Tdap and Td Vaccines ( 1 - Tdap) 1960 Zoster Vaccines (1 of 2) 1991 Annual Medicare Wellness Visit 2006 RSV Immunization or 60+ Years (1 - 1-dose 75+ series) 2016 COVID-19 Vaccine ( - 2023-2 5 season) 2024 PHQ-2 ([place]) 11/02/2024 Pneumococcal Vaccine: 50+ Years Completed 08/20/2018, 08/13/2017, 11/03/2013 Dexa Scan (General) Completed 03/19/2021 Meningococcal B Vaccine Aged Out No l onger eligible based on patient's age to complete this topic Meningococcal Vaccine Aged Out No ben mathew eligible based on patient's age to complete this topic RSV Immunizations Under 20 Months Aged Out No longer eligible b ased [...] FINDINGS AND IMPRESSION: Examination performed on a [employer] Discovery SL .: LUMBAR SPINE L2-L4: 1. [...] FINDINGS AND IMPRESSION: Examination performed on a [employer] Discovery SL .: LUMBAR SPINE L2-L4: 1. [...] Most Recently Relevant to Health Maintenance Insurance Care Teams Rib Knitter Relationship Specialty Start Date End Date Tom Rossi MD PCP - General INTERNAL MEDICINE 03/19/19
[2025-05-04 12:10] LABS: Hematocrit 34.3 % (37.0-47.0); Hemoglobin 10.9 g/dL (12.0-15.0); Immature Granulocyte Percent A 0.5 % (0-0.5); Lymphocytes Absolute Auto 2.37 K/mm3 (0.9-3.2); Mean Corpuscular HGB Conc 31.8 g/dl (32-36); Mean Corpuscular Hemoglobin 30.9 pg (26-34); Mean Corpuscular Volume 97.2 fl (80-100); Nucleated Red Blood Cells Absolute Auto 0.000 K/mm3 (0.0-0.012); Nucleated Red Blood Cells Perc 0.0 % (0.0-0.2); Platelet Count Result 224 k/mm3 (150-375); Red Blood Count 3.53 M/mm3 (4.2-5.4); White Blood Count 7.8 K/mm3 (4.5-10.0)
[2025-05-04 12:16] LABS: Add Urine Microscopic? YES; Appearance Urine Cloudy (Clear); Glucose Urine UA Negative (Negative); Leukocyte Esterase Ur Negative LEU/UL (Negative); Nitrate Urine Negative (Negative); Non Pathogenic Casts 0-2; Specific Grav Ur 1.013 (1.001-1.035)
[2025-05-04 12:22] LABS: Alanine Aminotransferase 15 U/L (6-35); Albumin Level 3.9 g/dL (3.5-5.1); Alkaline Phosphatase 73 U/L (38-126); Anion Gap 7 mmol/L (4-12); Aspartate Amino Transferase 22 U/L (14-36); Bilirubin,Total 0.4 mg/dL (0.2-1.3); Blood Urea Nitrogen 12 mg/dL (7-17); Calcium 9.5 mg/dL (8.4-10.2); Carbon Dioxide 27 mmol/L (22-30); Chloride 100 mmol/L (98-107); Cholesterol 157 mg/dL (0-200); Estimated Glomerular Filt Rate > 60; Glucose 116 mg/dL (65-110); HDL Direct 49 mg/dL; Potassium 4.5 mmol/L (3.4-5.0); Sodium 134 mmol/L (137-145); Total Protein 6.7 g/dL (6.3-8.2); Triglycerides 103 mg/dL (<150)
[2025-05-04 12:31] LABS: Hemoglobin A1C 6.5 % (<5.7)
[2025-05-04 12:44] LABS: Free T4 Free Thyroxine 1.27 ng/dL (0.78-2.19)
[2025-05-04 12:52] LABS: Thyroid Stimulating Hormone 0.853 uIU/mL (0.465-4.680)
[2025-05-04 13:27] LABS: Vitamin B12 941.0 pg/mL (239-931)
== END 2025-05-04 11:45 | disposition home or self-care (01) ==
PROVIDERS: PCP Internal Medicine; Visit Provider Internal Medicine
DX: E78.5 Hyperlipidemia, unspecified (principal); I10 Essential (primary) hypertension; E11.9 Type 2 diabetes mellitus without complications; E55.9 Vitamin D deficiency, unspecified; E53.8 Deficiency of other specified B group vitamins; Z79.899 Other long term (current) drug therapy; Z13.29 Encounter for screening for other suspected endocrine disorder
CPT/HCPCS: 36415; 80053; 80061; 81001; 82306; 82607; 82746; 83036; 84439; 84443; 85025

== ENCOUNTER 2025-05-15 13:47 | Outpatient (CLI) | payer MEDICARE, SELFPAY ==
--- OUTSIDE RECORDS SUMMARY | 2025-05-15 13:56 | XMS_ITS | Referral Summary ---
Author Organization [facility] at the [facility] Office Center Address [address] [place] [address] Care Team Providers Care Land Surveyor Name Role Phone Tom Hernandez MD Primary Care Provider [phone] Allergies Active Allergy Reactions Criticality Noted Date [...] tablet Take by mouth Acti ve C,E,zinc,copper 70-[id number]-ase 250-5-1 mg capsule Take by mouth Ocuvite [...] on file Legal Sex Female 6:21 AM BIRDCAGE ASSEMBLER Gender Identity Not on file Sexual Orientation Not on file Last Filed Vital Signs Vital Sign Reading Time Taken Comments Blood Pressure 134/76 10/22/2023 10:57 AM BIRDCAGE ASSEMBLER Pulse 75 10/22/2023 10:57 AM BIRDCAGE ASSEMBLER Temperature 36.5 C (97.7 F) 10/22/2023 10:57 AM BIRDCAGE ASSEMBLER Respiratory Rate 18 10/22/2023 10:57 AM BIRDCAGE ASSEMBLER Oxygen Saturation 94% 10/22/2023 10:57 AM BIRDCAGE ASSEMBLER Inhaled Oxygen Concentration - - Weight 67.6 kg (149 lb) 10/22/2023 10:57 AM BIRDCAGE ASSEMBLER Height 170.2 cm (5' 7) 10/22/2023 10:57 AM BIRDCAGE ASSEMBLER Body Mass Index 23.34 10/22/2023 10:57 AM BIRDCAGE ASSEMBLER Plan of Treatment Not on file Insurance MEDICARE [facility] UHC MEDICARE ADVANTAGE MEDICARE [facility] Care Teams Land Surveyor Relationship Specialty Start Date End Date Tom Hernandez MD PCP - General Internal Medicine 02/11/22
--- OUTSIDE RECORDS SUMMARY | 2025-05-15 13:56 | XMS_ITS | Encounter Summary ---
Author Organization [facility] Address [facility] [place] [address] Care Team Providers Care Business Editor Name Role Phone Tom Hernandez MD Primary Care Provider Encounter Details Date Type Department Care Team (Late st Contact Info) Description 01/18/2019 Abstract [facility] CONVERSION [address] [place] [address] , Generic ConversionMD Social History Tobacco Use Types Packs/Day Years Used Date Smoking Tobacco: Never Assessed Comments Unknown Sex and Gender Information Value Date Recorded Sex Assigned at Not on file Legal Sex Female 10:22 PM ELECTRIC SWITCH TESTER Gender Identity Not on file Sexual Orientation [...] documented as of this encounter Care Teams Business Editor Relationship Specialty Start Date End Date Tom Hernandez MD PCP - General INTERNAL MEDICINE 03/19/19 documented as of this encounter
--- OUTSIDE RECORDS SUMMARY | 2025-05-15 13:56 | XMS_ITS | Clinical Summary ---
Author Organization [facility] at the [facility] Office Center Address [address] [place] [address] Care Team Providers Care Java Web Services Developer Name Role Phone Tom Hernandez MD Primary Care Provider [phone] Allergies Active Allergy Reactions Criticality Noted Date [...] tablet Take by mouth Acti ve C,E,zinc,copper 71-[id number]-pxp 250-5-1 mg capsule Take by mouth Ocuvite [...] on file Legal Sex Female 6:21 AM ADULT SERVICES LIBRARIAN Gender Identity Not on file Sexual Orientation Not on file Obstetrics History Last Filed Vital Signs Vital Sign Reading Time Taken Comments Blood Pressure 134/76 10/22/2023 10:57 AM ADULT SERVICES LIBRARIAN Pulse 75 10/22/2023 10:57 AM ADULT SERVICES LIBRARIAN Temperature 36.5 C (97.7 F) 10/22/2023 10:57 AM ADULT SERVICES LIBRARIAN Respiratory Rate 18 10/22/2023 10:57 AM ADULT SERVICES LIBRARIAN Oxygen Saturation 94% 10/22/2023 10:57 AM ADULT SERVICES LIBRARIAN Inhaled Oxygen Concentration - - Weight 67.6 kg (149 lb) 10/22/2023 10:57 AM ADULT SERVICES LIBRARIAN Height 170.2 cm (5' 7) 10/22/2023 10:57 AM ADULT SERVICES LIBRARIAN Body Mass Index 23.34 10/22/2023 10:57 AM ADULT SERVICES LIBRARIAN Plan of Treatment Health Maintenance Due Date Last Done Comments Depression Screening 1941 Fall Risk Assessment 1941 Osteoporosis Screening-Bone Density Scan 1941 DTaP/Tdap/Td Vaccine (1 - Tdap) 1952 Hepatitis B Screening 1959 Zoster Vaccine (1 of 2) 1991 Well Visit 65+ 2006 Influenza Vaccine (#1) 2025 0, 07/29/2018, 08/04/2017, Additional history exists Pneumococcal vaccine 65+ Completed 018, 08/13/2017, 11/03/2013 Insurance MEDICARE [facility] MEDICARE ADVANTAGE MEDICARE [facility] Care Teams Java Web Services Developer Relationship Specialty Start Date End Date Tom Hernandez MD PCP - General Internal Medicine 02/11/22
--- OUTSIDE RECORDS SUMMARY | 2025-05-15 13:56 | XMS_ITS | Encounter Summary ---
Author Organization [facility] Facility Care Team Providers Care Kitchen Operator Name Role Phone Tom Hernandez MD Primary Care Provider [phone] Dao Rooney DO Primary Care Provider [phone] Tom Hernandez MD Primary Care Provider [phone] Encounter Details Date Type Department Care Team (Latest Contact Info) Description 10/15/2017 Orders Only [facility] CLINCONV ProviderPablo MD [address] [place] [address] Social History Tobacco Use Types Packs/Day Years Used Date Smoking Tobacco: Former Comments Unknown Sex and Gender Information Value Date Recorded Sex Assigned at Not on file Legal Sex Female 6:21 AM DAIRY INSPECTOR Gender Identity Not on file Sexual Orientation Not on file documented as of this encounter Plan of Treatment Not on file documented as of this encounter Procedures Procedure Name Priority Date/Time Associated Diagnosis Comments PROCEDURE - RESULT 10/27/2017 12 :00 AM DAIRY INSPECTOR documented in this encounter Results * PROCEDURE - RESULT (10/27/2017 12:00 AM DAIRY INSPECTOR) Narrative 10/27/2017 12:00 AM DAIRY INSPECTOR Ordered by an unspecified provider. Historical Provider Final Res ult documented in this encounter Visit Diagnoses Not on filedocumented in this encounter Care Teams Kitchen Operator Relationship Specialty Start Date End Date Tom Hernandez MD [address] [facility] [address] [place] [address] PCP - General Internal Medicine 04/14/19 01/02/20 Dao Rooney DO [address] [facility] [address] [place] [address] PCP - General Internal Medicine 01/03/20 02/10/22 Tom Hernandez MD [address] [facility] [address] [place] [address] PCP - General Internal Medicine 02/11/22 documented as of this encounter
--- OUTSIDE RECORDS SUMMARY | 2025-05-15 13:56 | XMS_ITS | Clinical Summary ---
Author Organization [facility] Address [facility] [place] [address] Care Team Providers Care Grain Buyer Name Role Phone Tom Rossi MD Primary Care Provider [phone] Family History Medical History Relation Comments Breast Cancer Neg Hx Social History Tobacco Use Types Packs/Day Years Used Date Smoking Tobacco: Never Assessed Comments Unknown Sex and Gender Information Value Date Recorded Sex Assigned at Not on file Legal Sex Female 10:22 PM STEAMFITTER APPRENTICE Gender Identity Not on file Sexual Orientation Not on file Plan of Treatment Health Maintenance Due Date Last Done Comments DTaP, Tdap and Td Vaccines ( 1 - Tdap) 1960 Zoster Vaccines (1 of 2) 1991 Annual Medicare Wellness Visit 2006 RSV Immunization or 60+ Years (1 - 1-dose 75+ series) 2016 COVID-19 Vaccine ( - 2023-2 5 season) 2024 PHQ-2 (Physician [place]) 11/02/2024 Pneumococcal Vaccine: 50+ Years Completed 08/20/2018, [...] FINDINGS AND IMPRESSION: Examination performed on a [employer] Discovery SL .: LUMBAR SPINE L2-L4: 1. [...] FINDINGS AND IMPRESSION: Examination performed on a [employer] Discovery SL .: LUMBAR SPINE L2-L4: 1. [...] Relevant to Health Maintenance Insurance Care Teams Grain Buyer Relationship Specialty Start Date End Date Tom Rossi MD PCP - General INTERNAL MEDICINE 03/19/19
--- OUTSIDE RECORDS SUMMARY | 2025-05-15 13:56 | XMS_ITS | Continuity of Care Document ---
Author Organization [facility] Address [address] [facility] [address] [place] [address] Phone Care Team Providers Care Associate Drafter Name Role Phone Neeraj Cummings Unavailable Unavailable Procedures Procedure Date Eye Exam & Treatment Refraction Advance Directives Directive Yes / No Effective Date File Name No Information Encounters Encounter Description Practice Location Reason(s) For Visit Diagnoses Date Provider Providers Copied on Encounter [facility], [address], [place], [place], [id number], [place] tel:[phone] [address] [facility] No Information [id number] Pickard. [address] [facility] , [address], [place], [address], [place]. tel:[phone] Family History Family Member Type Diagnosis Age At Onset No Information Payers Payer name Insurance type Covered democrat ID Authoriza tion(s) Medicare [facility] [id number] Social History Type Description Quantity Date Captured [...]
--- OUTSIDE RECORDS SUMMARY | 2025-05-15 13:56 | XMS_ITS | Clinical Summary ---
Author Organization [facility] Address [address] [facility] [place] [address] Care Team Providers Care Gatekeeper Name Role Phone Unavailable Primary Care Provider Unavailabl e Source Comments [facility],non-owned Affiliates and Associated Physician Practices is amultiple site organization consisting of ambulatory clinics and hospital sitesin [place], [place], [place] and [place]. This disclosure is being madepursuant to the Care Everywhere program and may not contain all information available regarding this patient. Last updated 18.[facility] Immunizations Immunization Administration Dates Next Due INFLUENZA [...] season) 2024 DEPRESSION SCREENING 11/02/2024 INFLUENZA VACCINE (#1) 2025 08/27/2016 HEPATITIS B VACCINE Aged Out No longe [...] patient's age to complete this topic Insurance AARP MEDICARE ADVANTAGE MEDICARE [facility] MEDICARE [facility] MEDICARE
[2025-05-15 14:41] LABS: Iron 80 ug/dL (37-170)
[2025-05-15 14:48] LABS: Percent Iron Saturation 23 % (20-50)
[2025-05-15 15:15] LABS: Ferritin 38.20 ng/mL (11.1-264)
== END 2025-05-15 13:48 | disposition home or self-care (01) ==
LOC: ANHLAB 13:47
PROVIDERS: PCP Internal Medicine; Visit Provider Internal Medicine
DX: D64.9 Anemia, unspecified (principal)
CPT/HCPCS: 36415; 82728; 83540; 83550

== ENCOUNTER 2025-05-17 10:26 | Outpatient (CLI) | payer MEDICARE, SELFPAY ==
--- NOTE | ~2025-05-17 | XR_ITS ---
Left Knee Technique: AP, lateral, and sunrise views were obtained. Clinical History: Pain Findings: No fracture or dislocation is seen. Osseous alignment is anatomic. There is mild to moderat e degenerative change of the lateral compartment. There is chondrocalcinosis of the menisci. There is moderate degenerative change of the patellofemoral compartment. Soft tissues are otherwise unremarka ble. No joint effusion is seen. Impression: Degenerative changes, as above. Chondrocalcinosis of the menisci. Reviewed, dictated and finalized at location M. Impression: Degenerative changes, as above. Chondrocalcinosis of the menisci.
--- OUTSIDE RECORDS SUMMARY | 2025-05-17 10:43 | XMS_ITS | Clinical Summary ---
Author Organization [facility] at the [facility] Office Center Address [address] [place] [address] Care Team Providers Care Shactor Helper Name Role Phone Tom Hernandez MD Primary Care Provider [phone] Allergies Active Allergy Reactions Criticality Noted Date [...] tablet Take by mouth Acti ve C,E,zinc,copper 91-[id number]-qna 250-5-1 mg capsule Take by mouth Ocuvite [...] on file Legal Sex Female 6:21 AM RIBBON LAPPER TENDER Gender Identity Not on file Sexual Orientation Not on file Obstetrics History Last Filed Vital Signs Vital Sign Reading Time Taken Comments Blood Pressure 134/76 10/22/2023 10:57 AM RIBBON LAPPER TENDER Pulse 75 10/22/2023 10:57 AM RIBBON LAPPER TENDER Temperature 36.5 C (97.7 F) 10/22/2023 10:57 AM RIBBON LAPPER TENDER Respiratory Rate 18 10/22/2023 10:57 AM RIBBON LAPPER TENDER Oxygen Saturation 94% 10/22/2023 10:57 AM RIBBON LAPPER TENDER Inhaled Oxygen Concentration - - Weight 67.6 kg (149 lb) 10/22/2023 10:57 AM RIBBON LAPPER TENDER Height 170.2 cm (5' 7) 10/22/2023 10:57 AM RIBBON LAPPER TENDER Body Mass Index 23.34 10/22/2023 10:57 AM RIBBON LAPPER TENDER Plan of Treatment Health Maintenance Due Date Last Done Comments Depression Screening 1941 Fall Risk Assessment 1941 Osteoporosis Screening-Bone Density Scan 1941 DTaP/Tdap/Td Vaccine (1 - Tdap) 1952 Hepatitis B Screening 1959 Zoster Vaccine (1 of 2) 1991 Well Visit 65+ 2006 Influenza Vaccine (#1) 2025 0, 07/29/2018, 08/04/2017, Additional history exists Pneumococcal vaccine 65+ Completed 018, 08/13/2017, 11/03/2013 Insurance MEDICARE [facility] MEDICARE ADVANTAGE MEDICARE [facility] Care Teams Shactor Helper Relationship Specialty Start Date End Date Tom Hernandez MD PCP - General Internal Medicine 02/11/22
--- OUTSIDE RECORDS SUMMARY | 2025-05-17 10:43 | XMS_ITS | Clinical Summary ---
Author Organization [facility] Address [address] [facility] [place] [address] Care Team Providers Care Antique Collector Name Role Phone Unavailable Primary Care Provider Unavailabl e Source Comments [facility],non-owned Affiliates and Associated Physician Practices is amultiple site organization consisting of ambulatory clinics and hospital sitesin [place], [place], [place] and [place]. This disclosure is being madepursuant to the Care Everywhere program and may not contain all information available regarding this patient. Last updated 18.[facility] Immunizations Immunization Administration Dates Next Due INFLUENZA [...] this topic Insurance AARP MEDICARE ADVANTAGE MEDICARE [facility] MEDICARE [facility] MEDICARE
--- OUTSIDE RECORDS SUMMARY | 2025-05-17 10:43 | XMS_ITS | Encounter Summary ---
Author Organization [facility] Care Team Providers Care Aircraft Assembler Name Role Phone Tom Hernandez MD Primary Care Provider [phone] Dao Rooney DO Primary Care Provider [phone] Tom Hernandez MD Primary Care Provider [phone] Encounter Details Date Type Department Care Team (Latest Contact Info) Description 10/15/2017 Orders Only [facility] CLINCONV ProviderPablo MD [address] [place] [address] Social History Tobacco Use Types Packs/Day Years Used Date Smoking Tobacco: Former Comments Unknown Sex and Gender Information Value Date Recorded Sex Assigned at Not on file Legal Sex Female 6:21 AM PRESS LEADER Gender Identity Not on file Sexual Orientation Not on file documented as of this encounter Plan of Treatment Not on file documented as of this encounter Procedures Procedure Name Priority Date/Time Associated Diagnosis Comments PROCEDURE - RESULT 10/27/2017 12 :00 AM PRESS LEADER documented in this encounter Results * PROCEDURE - RESULT (10/27/2017 12:00 AM PRESS LEADER) Narrative 10/27/2017 12:00 AM PRESS LEADER Ordered by an unspecified provider. Historical Provider Final Res ult documented in this encounter Visit Diagnoses Not on filedocumented in this encounter Care Teams Aircraft Assembler Relationship Specialty Start Date End Date Tom Hernandez MD [address] [facility] [address] [place] [address] PCP - General Internal Medicine 04/14/19 01/02/20 Dao Rooney DO [address] [facility] [address] [place] [address] PCP - General Internal Medicine 01/03/20 02/10/22 Tom Hernandez MD [address] [facility] [address] [place] [address] PCP - General Internal Medicine 02/11/22 documented as of this encounter
--- OUTSIDE RECORDS SUMMARY | 2025-05-17 10:43 | XMS_ITS | Continuity of Care Document ---
Author Organization [facility] Address [address] [facility] [place] [address] Phone Care Team Providers Care Recreation Worker Name Role Phone Neeraj Cummings Unavailable Unavailable Procedures Procedure Date Eye Exam & Treatment Refraction Advance Directives Directive Yes / No Effective Date File Name No Information Encounters Encounter Description Practice Location Reason(s) For Visit Diagnoses Date Provider Providers Copied on Encounter [facility], [address], [place], [place], [id number], [place] tel:[phone] [address] [facility] No Information 4-200 [address] Emiliano Pickard. [address] [facility] , [address], [place], [address], [place]. tel:[phone] Family History Family Member Type Diagnosis Age At Onset No Information Payers Payer name Insurance type Covered constitution party ID Authoriza tion(s) Medicare [facility] [id number] Social History Type Description Quantity Date Captured [...]
--- OUTSIDE RECORDS SUMMARY | 2025-05-17 10:43 | XMS_ITS | Referral Summary ---
Author Organization [facility] at the [facility] Address [address] [place] [address] Care Team Providers Care Litigation Specialist Name Role Phone Tom Hernandez MD Primary Care Provider [phone] Allergies Active Allergy Reactions Criticality Noted Date [...] tablet Take by mouth Acti ve C,E,zinc,copper [id number] 250-5-1 mg capsule Take by mouth Ocuvite [...] on file Legal Sex Female 6:21 AM ELECTRONIC TECHNOLOGIST Gender Identity Not on file Sexual Orientation Not on file Last Filed Vital Signs Vital Sign Reading Time Taken Comments Blood Pressure 134/76 10/22/2023 10:57 AM ELECTRONIC TECHNOLOGIST Pulse 75 10/22/2023 10:57 AM ELECTRONIC TECHNOLOGIST Temperature 36.5 C (97.7 F) 10/22/2023 10:57 AM ELECTRONIC TECHNOLOGIST Respiratory Rate 18 10/22/2023 10:57 AM ELECTRONIC TECHNOLOGIST Oxygen Saturation 94% 10/22/2023 10:57 AM ELECTRONIC TECHNOLOGIST Inhaled Oxygen Concentration - - Weight 67.6 kg (149 lb) 10/22/2023 10:57 AM ELECTRONIC TECHNOLOGIST Height 170.2 cm (5' 7) 10/22/2023 10:57 AM ELECTRONIC TECHNOLOGIST Body Mass Index 23.34 10/22/2023 10:57 AM ELECTRONIC TECHNOLOGIST Plan of Treatment Not on file Insurance MEDICARE [facility] UHC MEDICARE [facility] [place] [place] Address: [address] [address] [place] [address] MEDICARE [facility] Care Teams Litigation Specialist Relationship Specialty Start Date End Date Tom Hernandez MD PCP - General Internal Medicine 02/11/22
== END 2025-05-17 10:27 | disposition home or self-care (01) ==
PROVIDERS: PCP Internal Medicine; Visit Provider Internal Medicine
DX: M17.12 Unilateral primary osteoarthritis, left knee (principal); M11.262 Other chondrocalcinosis, left knee
CPT/HCPCS: 73564

== ENCOUNTER 2025-05-29 10:25 | Inpatient (IN) | payer MEDICARE, SELFPAY ==
[2025-05-29] VITALS (7 sets, daily range): BP systolic 129–169; BP diastolic 62–100; PULSE 68–86; RESP 15–18; TEMP 36.8–36.9; O2SAT 96–100; BMI 21.8
--- NOTE | ~2025-05-29 | XR_ITS ---
CHEST RADIOGRAPH CLINICAL HISTORY: ams . COMPARISON: 01/07/2025 TECHNIQUE: Single portable view of the chest. FINDINGS The cardiomediastinal silhouette is unremarkable. Interstitial thickening is redemonstrated, chronic in appearance. Biapical scarring is noted. Peripheral honeycombing is suspected. The lungs are otherwise clear. IMPRESSION: Chronic interstitial lung disease, without focal infiltrate or effusion. Reviewed, dictated and finalized at location A.
--- NOTE | 2025-05-29 10:40 | PC.NURSE ---
Raf at bedside currently and stating I want her mind evaluated
--- NOTE | 2025-05-29 11:42 | PC.NURSE ---
Pt moved to room 13, fall precautions initiated
--- OUTSIDE RECORDS SUMMARY | 2025-05-29 11:56 | XMS_ITS | Continuity of Care Document ---
Author Organization [facility] Address [address] [place] [address] Phone Care Team Providers Care Vehicle Care Specialist Name Role Phone Neeraj Cummings Unavailable Unavailable Procedures Procedure Date Eye Exam & Treatment Refraction Advance Directives Directive Yes / No Effective Date File Name No Information Encounters Encounter Description Practice Location Reason(s) For Visit Diagnoses Date Provider Providers Copied on Encounter [facility], [address], [place], [place], [id number], [place] tel:[phone] [address] [facility] No Information 4-[address] Emiliano Pickard. [address] [facility] , [address], [place], [address], [place]. tel:[phone] Family History Family Member Type Diagnosis Age At Onset No Information Payers Payer name Insurance type Covered libertarian ID Authoriza tion(s) Medicare [facility] [id number] Social History Type Description Quantity Date Captured [...]
--- OUTSIDE RECORDS SUMMARY | 2025-05-29 11:56 | XMS_ITS | Clinical Summary ---
Author Organization [facility] at the [facility] Office Center Address [address] [place] [address] Care Team Providers Care Rubber Goods Cutter Finisher Name Role Phone Tom Hernandez MD Primary Care Provider [phone] Allergies Active Allergy Reactions Criticality Noted Date [...] tablet Take by mouth Acti ve C,E,zinc,copper [id number] 250-5-1 mg capsule Take by mouth Ocuvite [...] on file Legal Sex Female 6:21 AM SKIDDER OPERATOR Gender Identity Not on file Sexual Orientation Not on file Obstetrics History Last Filed Vital Signs Vital Sign Reading Time Taken Comments Blood Pressure 134/76 10/22/2023 10:57 AM SKIDDER OPERATOR Pulse 75 10/22/2023 10:57 AM SKIDDER OPERATOR Temperature 36.5 C (97.7 F) 10/22/2023 10:57 AM SKIDDER OPERATOR Respiratory Rate 18 10/22/2023 10:57 AM SKIDDER OPERATOR Oxygen Saturation 94% 10/22/2023 10:57 AM SKIDDER OPERATOR Inhaled Oxygen Concentration - - Weight 67.6 kg (149 lb) 10/22/2023 10:57 AM SKIDDER OPERATOR Height 170.2 cm (5' 7) 10/22/2023 10:57 AM SKIDDER OPERATOR Body Mass Index 23.34 10/22/2023 10:57 AM SKIDDER OPERATOR Plan of Treatment Health Maintenance Due Date Last Done Comments Depression Screening 1941 Fall Risk Assessment 1941 Osteoporosis Screening-Bone Density Scan 1941 DTaP/Tdap/Td Vaccine (1 - Tdap) 1952 Hepatitis B Screening 1959 Zoster Vaccine (1 of 2) 1991 Well Visit 65+ 2006 Influenza Vaccine (#1) 2025 0, 07/29/2018, 08/04/2017, Additional history exists Pneumococcal vaccine 65+ Completed 018, 08/13/2017, 11/03/2013 Insurance MEDICARE [facility] Address: [address] [address] [place] [address] MEDICARE [facility] Care Teams Rubber Goods Cutter Finisher Relationship Specialty Start Date End Date Tom Hernandez MD PCP - General Internal Medicine 02/11/22
--- OUTSIDE RECORDS SUMMARY | 2025-05-29 11:56 | XMS_ITS | Encounter Summary ---
Author Organization [facility] Care Team Providers Care Email Developer Name Role Phone Tom Hernandez MD Primary Care Provider [phone] Dao Rooney DO Primary Care Provider Tom Hernandez MD Primary Care Provider [phone] Encounter Details Date Type Department Care Team (Latest Contact Info) Description 10/15/2017 Orders Only [facility] CLINCONV ProviderPablo MD [address] [place] [address] Social History Tobacco Use Types Packs/Day Years Used Date Smoking Tobacco: Former Comments Unknown Sex and Gender Information Value Date Recorded Sex Assigned at Not on file Legal Sex Female 6:21 AM SQUEEGEE TENDER Gender Identity Not on file Sexual Orientation Not on file documented as of this encounter Plan of Treatment Not on file documented as of this encounter Procedures Procedure Name Priority Date/Time Associated Diagnosis Comments PROCEDURE - RESULT 10/27/2017 12 :00 AM SQUEEGEE TENDER documented in this encounter Results * PROCEDURE - RESULT (10/27/2017 12:00 AM SQUEEGEE TENDER) Narrative 10/27/2017 12:00 AM SQUEEGEE TENDER Ordered by an unspecified provider. Historical Provider Final Res ult documented in this encounter Visit Diagnoses Not on filedocumented in this encounter Care Teams Email Developer Relationship Specialty Start Date End Date Tom Hernandez MD [address] [facility] [address] [place] [address] PCP - General Internal Medicine 04/14/19 01/02/20 Dao Rooney DO [address] [facility] [address] [place] [address] PCP - General Internal Medicine 01/03/20 02/10/22 Tom Hernandez MD [address] [facility] [address] [place] [address] PCP - General Internal Medicine 02/11/22 documented as of this encounter
--- OUTSIDE RECORDS SUMMARY | 2025-05-29 11:56 | XMS_ITS | Clinical Summary ---
Author Organization [facility] Address [address] [place] [address] Care Team Providers Care Trimmer Machine Operator Name Role Phone Unavailable Primary Care Provider Unavailabl e Source Comments [facility],non-owned Affiliates and Associated Physician Practices is amultiple site organization consisting of ambulatory clinics and hospital sitesin [place], [place], [place] and [place]. This disclosure is being madepursuant to the Care Everywhere program and may not contain all information available regarding this patient. Last updated 18.[facility] Immunizations Immunization Administration Dates Next [...] this topic Insurance [employer] MEDICARE ADVANTAGE [facility]ARE [facility]
--- OUTSIDE RECORDS SUMMARY | 2025-05-29 11:56 | XMS_ITS | Referral Summary ---
Author Organization [facility] at the [facility] Office Center Address [address] [place] [address] Care Team Providers Care Device Sales Consultant Name Role Phone Tom Hernandez MD Primary Care Provider [phone] Allergies Active Allergy Reactions Criticality Noted Date [...] tablet Take by mouth Acti ve C,E,zinc,copper [id number] 250-5-1 mg capsule Take by mouth Ocuvite [...] on file Legal Sex Female 6:21 AM VENEER JOINTER HELPER Gender Identity Not on file Sexual Orientation Not on file Last Filed Vital Signs Vital Sign Reading Time Taken Comments Blood Pressure 134/76 10/22/2023 10:57 AM VENEER JOINTER HELPER Pulse 75 10/22/2023 10:57 AM VENEER JOINTER HELPER Temperature 36.5 C (97.7 F) 10/22/2023 10:57 AM VENEER JOINTER HELPER Respiratory Rate 18 10/22/2023 10:57 AM VENEER JOINTER HELPER Oxygen Saturation 94% 10/22/2023 10:57 AM VENEER JOINTER HELPER Inhaled Oxygen Concentration - - Weight 67.6 kg (149 lb) 10/22/2023 10:57 AM VENEER JOINTER HELPER Height 170.2 cm (5' 7) 10/22/2023 10:57 AM VENEER JOINTER HELPER Body Mass Index 23.34 10/22/2023 10:57 AM VENEER JOINTER HELPER Plan of Treatment Not on file Insurance MEDICARE [facility] UHC MEDICARE [facility] MED[facility] Address: [address] [address] [place] [address] MEDICARE [facility] Care Teams Device Sales Consultant Relationship Specialty Start Date End Date Tom Hernandez MD PCP - General Internal Medicine 02/11/22
[2025-05-29 12:35] LABS: Hematocrit 32.3 % (37.0-47.0); Hemoglobin 10.7 g/dL (12.0-15.0); Immature Granulocyte Percent A 0.3 % (0-0.5); Lymphocytes Absolute Auto 1.81 K/mm3 (0.9-3.2); Mean Corpuscular HGB Conc 33.1 g/dl (32-36); Mean Corpuscular Hemoglobin 31.1 pg (26-34); Mean Corpuscular Volume 93.9 fl (80-100); Nucleated Red Blood Cells Absolute Auto 0.000 K/mm3 (0.0-0.012); Nucleated Red Blood Cells Perc 0.0 % (0.0-0.2); Platelet Count Result 245 k/mm3 (150-375); Red Blood Count 3.44 M/mm3 (4.2-5.4); White Blood Count 5.8 K/mm3 (4.5-10.0)
[2025-05-29 12:54] LABS: Alanine Aminotransferase 12 U/L (6-35); Albumin Level 3.8 g/dL (3.5-5.1); Alkaline Phosphatase 80 U/L (38-126); Anion Gap 6 mmol/L (4-12); Aspartate Amino Transferase 22 U/L (14-36); Bilirubin,Total 0.5 mg/dL (0.2-1.3); Blood Urea Nitrogen 10 mg/dL (7-17); Calcium 9.1 mg/dL (8.4-10.2); Carbon Dioxide 29 mmol/L (22-30); Chloride 96 mmol/L (98-107); Estimated CRCL calculation 67 ml/min; Estimated Glomerular Filt Rate > 60; Glucose 121 mg/dL (65-110); Potassium 3.3 mmol/L (3.4-5.0); Sodium 131 mmol/L (137-145); Total Protein 6.6 g/dL (6.3-8.2)
[2025-05-29 13:16] LABS: Influenza A QL RT-PCR Negative (Negative); Influenza B QL RT-PCR Negative (Negative); RSV RNA, RT-PCR Negative (Negative); SARS-CoV-2 RNA PCR Negative (Negative)
--- NOTE | 2025-05-29 14:33 | PCCCNOTE ---
Called to ED for possible placement needs. Pt is alert but gets confused as to where she lives and who she is living with. I spoke with niece who she is currently living with and she states that she is to much to care for due to the dementia. The niece is Diana Carvajal [phone]. I have sent a referral to [facility] in [place] and am awaiting a response.
[2025-05-29 15:22] LABS: Add Urine Microscopic? YES; Appearance Urine Cloudy (Clear); Glucose Urine UA Negative (Negative); Leukocyte Esterase Ur Trace LEU/UL (Negative); Need Manual Microscopic Reviewed; Nitrate Urine Negative (Negative); Specific Grav Ur 1.010 (1.001-1.035)
--- NOTE | 2025-05-29 16:20 | ED_ITS ---
HPI - General Adult General Chief complaint: Unspecified Stated complaint: family requesting psych eval Time Seen by Provider: 05/29/25 11:34 History of Present Illness HPI narrative: 85-year-old female presents to the emergency department for evaluation for failure to thrive. Patient does have dementia. Patient had previously been a retirement was taken out of the retirement per family. Patient has become more increasingly aggressive. Care coordination did attempt to place the patient directly and to a care facility but there was no success. Patient will need to be admitted to the hospital overnight since the patient's caregiver is unable to care for her at home. Related Data Home Medications ?Medication ?Instructions ?Recorded ?Confirmed ?Last Taken ?Type albuterol sulfate 90 mcg/actuation 2 puff inhalation QID PRN Dyspnea 12/12/19 05/17/25 04/23/21 History aerosol inhaler (ProAir HFA) 2 puff polyethylene glycol 3350 17 17 g PO DAILY 03/01/21 05/17/25 04/23/21 History gram/dose oral powder (Miralax) 17 g fluticasone propionate 50 1 spray intranasal DAILY PRN Sinus 03/22/21 05/17/25 09/17/23 History mcg/actuation nasal Symptoms spray,suspension cholecalciferol (vitamin D3) 25 25 mcg PO DAILY 04/18/21 05/17/25 04/23/21 History mcg (1,000 unit) capsule (Vitamin 25 mcg D3) nystatin 100,000 unit/gram topical 1 applic topical BID PRN Rash 04/18/21 05/17/25 04/23/21 History cream 1 applic acetaminophen 500 mg capsule 500 mg PO Q6H PRN 05/02/25 05/17/25 Unknown History calcium carbonate (Oyster Shell 500 mg PO DAILY 05/02/25 05/17/25 Unknown History Calcium) cetirizine 10 mg tablet (Allergy 10 mg PO DAILY PRN 05/02/25 05/17/25 Unknown History Relief (cetirizine)) morena BYMOUTH 05/02/25 05/17/25 Unknown History melatonin 3 mg capsule 3 mg PO QHS 05/02/25 05/17/25 Unknown History Allergies Allergy/AdvReac Type Severity Reaction Status Date / Time Penicillins Allergy Severe SWELLING, Verified 05/29/25 10:41 RASH tramadol Allergy Intermediate Itching Verified 05/29/25 10:41 Cephalosporins Allergy Mild Itching Verified 05/29/25 10:41 hydrocodone AdvReac Mild Irritable Verified 05/29/25 10:41 oxycodone AdvReac Irritable Verified 05/29/25 10:41 Review of Systems 2 Review of Systems: All systems reviewed & are unremarkable except as noted in HPI and below PMFSH Past Medical History Medical History (Updated 05/29/25 @ 18:56 by Chago Anaya MD) Left knee pain BMI 22.0-22.9, adult Interstitial lung disease Multinodular thyroid Multinodular thyroid Chronic obstructive pulmonary disease Degenerative joint disease Type 2 diabetes mellitus Hyperlipidemia Hypertension Pulmonary fibrosis Vitamin B12 deficiency Lung nodule Coronary artery calcification Mild ascending aorta dilatation Bilateral carotid bruits Hearing loss Osteopenia Polyp of colon Vitamin D deficiency Surgical History Surgical History History of tonsillectomy History of open reduction and internal fixation (ORIF) procedure repair of right wrist fracture History of surgical removal of ganglion cyst History of carpal tunnel surgery History of total right knee replacement Family History Family History Father Hypertension Family history of elevated blood lipids Family history of arthritis Family history of kidney disease Cerebrovascular accident Mother Carcinoma of colon Other Stomach cancer Other Brain cancer Other Family history of gout Family history of malignant neoplasm Family history of seizure disorder Social History Social History Social History: Surrogate medical decision maker: Taurus Delarosa, sibling ([phone]). Code status: Full code. Smoking packs per day: 1.5 Smoking cigarettes per day: 30.0 Years smoked: 30 Smoking pack-years: 45.00 Smoking status: Former smoker Tobacco type: cigarettes Second hand tobacco smoke exposure: No Smoking end date: 11/02/98 Alcohol intake: never Substance use: never Substance use type: does not use Lack of Transportation: YES Lack of Food: Sometimes True Current Housing: I Have Housing Concerned About Future Housing: Decline to Answer Difficulty Paying Gas/Electric Bills: No Difficulty Paying for Meds: Decline to Answer Currently Unemployed: YES Education: High School Diploma/GED Difficulty w/ Childcare or Family Care: No Living arrangements: alone Additional living arrangements comments: lives in an apartment in a residential community Spiritual care concerns: No Exam 2 Narrative: APPEARANCE: Well appearing, no pain, no distress, well-nourished. HEAD: normocephalic, atraumatic. EYES: PERRLA/EOMI, conjunctivae clear. NOSE: Normal no drainage EARS:TMS clear with good light reflex. THROAT: Pharynx clear, no exudate. NECK: Supple. No adenopathy, no masses. RESPIRATORY: Airway patent, respirations nonlabored. Clear to auscultation bilaterally, no rales, rhonchi, wheezing. CARDIOVASCULAR: Regular rate and rhythm without murmurs rubs or gallops. ABDOMINAL: Soft, nontender, nondistended, normal bowel sounds MUSCULOSKELETAL: Moves all extremities. Strength/ROM intact, No edema, No calf tenderness. NEURO: Alert. Cranial nerves II through XII intact. Good gait. Good coordination SKIN: Warm, dry. Normal Color PSYCHIATRIC: Normal affect/mood. Course Vital Signs Vital signs: Vital Signs Temperature 98.4 F 05/29/25 10:25 Pulse Rate 86 05/29/25 10:25 Respiratory Rate 16 05/29/25 10:25 Blood Pressure 147/94 H 05/29/25 10:25 Pulse Oximetry 96 05/29/25 10:25 Oxygen Delivery Room Air 05/29/25 10:25 Temperature 98.4 F 05/29/25 10:25 Pulse Rate 76 05/29/25 17:52 Respiratory Rate 16 05/29/25 17:52 Blood Pressure 151/80 H 05/29/25 17:52 Pulse Oximetry 98 05/29/25 17:52 Oxygen Delivery Room Air 05/29/25 10:25 Medical Decision Making [facility] Narrative Medical decision making narrative: 85-year-old male present to the emergency department for evaluation for increased aggression. Patient is unable to cared for at home by her current caregiver. Attempted to place the patient from the emergency department but care coordination was unsuccessful. Case discussed with hospitalist and patient was accepted for admission with anticipated retirement placement. Patient is currently afebrile with no leukocytosis and a stable hemoglobin of 10.7. No significant acute abnormalities on the patient's CMP UA was negative for infection. Patient was negative for influenza RSV and for COVID. Patient is at her normal baseline with no focal neural deficits. Patient does have some increased aggression but patient has not been aggressive in the emergency department and patient is well-appearing. Differential Diagnosis Differential Diagnosis: COVID, RSV influenza, UTI, pneumonia Vital Signs Vital Signs: Vital Signs Temperature 98.4 F 05/29/25 10:25 Pulse Rate 86 05/29/25 10:25 Respiratory Rate 16 05/29/25 10:25 Blood Pressure 147/94 H 05/29/25 10:25 Pulse Oximetry 96 05/29/25 10:25 Oxygen Delivery Room Air 05/29/25 10:25 Temperature 98.4 F 05/29/25 10:25 Pulse Rate 76 05/29/25 17:52 Respiratory Rate 16 05/29/25 17:52 Blood Pressure 151/80 H 05/29/25 17:52 Pulse Oximetry 98 05/29/25 17:52 Oxygen Delivery Room Air 05/29/25 10:25 Lab Data Lab results reviewed: Yes I reviewed the patient's lab results. 05/29/25 12:24 05/29/25 12:24 Labs: Lab Results 05/29/25 05/29/25 Range/Units 12:24 14:56 WBC 5.8 (4.5-10.0) K/mm3 RBC 3.44 L (4.2-5.4) M/mm3 Hgb 10.7 L (12.0-15.0) g/dL Hct 32.3 L (37.0-47.0) % MCV 93.9 (80-100) fl MCH 31.1 (26-34) pg MCHC 33.1 (32-36) g/dl RDW 13.2 (11.5-14.5) % Plt Count 245 (150-375) k/mm3 MPV 8.6 (7.4-10.4) fl Immature Gran % (Auto) 0.3 (0-0.5) % Neut % (Auto) 60.4 (45.5-73.1) % Lymph % (Auto) 31.2 (18.3-44.2) % [place] % (Auto) 7.1 (2.6-8.5) % Eos % (Auto) 0.7 (0-4.4) % Baso % (Auto) 0.3 (0.2-1.2) % Lymph # (Auto) 1.81 (0.9-3.2) K/mm3 [place] # (Auto) 0.4 (0.1-0.6) K/mm3 Eos # (Auto) 0.0 (0-0.3) K/mm3 Baso # (Auto) 0.0 (0.0-0.1) K/mm3 Abs Immat Gran (auto) 0.02 (0.00-0.031) K/mm3 Absolute Neuts (auto) 3.5 (1.3-6.7) K/mm3 Absolute Nucleated RBC 0.000 (0.0-0.012) K/mm3 Nucleated RBC % 0.0 (0.0-0.2) % Sodium 131 L (137-145) mmol/L Potassium 3.3 L (3.4-5.0) mmol/L Chloride 96 L (98-107) mmol/L Carbon Dioxide 29 (22-30) mmol/L Anion Gap 6 (4-12) mmol/L BUN 10 (7-17) mg/dL Creatinine 0.49 L (0.7-1.0) mg/dL Estim Creat Clear Calc 67 ml/min Estimated GFR > 60 (59 - ) Glucose 121 H (65-110) mg/dL Calcium 9.1 (8.4-10.2) mg/dL Total Bilirubin 0.5 (0.2-1.3) mg/dL AST 22 (14-36) U/L ALT 12 (6-35) U/L Alkaline Phosphatase 80 (38-126) U/L Total Protein 6.6 (6.3-8.2) g/dL Albumin 3.8 (3.5-5.1) g/dL Urine Color Yellow (Yellow) Urine Appearance Cloudy H (Clear) Urine pH 7.5 (5.0-9.0) Ur Specific [place] 1.010 (1.001-1.035) Urine Protein Trace (Negative) mg/dL Urine Glucose (UA) Negative (Negative) mg/dL Urine Ketones Negative (Negative) mg/dL Ur Blood (Man) Negative (Negative) Urine Nitrate Negative (Negative) Urine Bilirubin Negative (Negative) Urine Urobilinogen 0.2 (<2.0) mg/dL Add Ur Microanalysis Reviewed Leukocyte Esterase Rfl Trace H (Negative) VENUS/UL Urine RBC 0-2 (0-2) /hpf Urine WBC 0-5 (0-3) /hpf Ur Squamous Epith Cells Occasional (Few) /hpf Urine Bacteria None seen /hpf Urine Casts 3-5 Influenza A (RT-PCR) Negative (Negative) Influenza B (RT-PCR) Negative (Negative) RSV (RT-PCR) Negative (Negative) SARS-CoV-2 RNA (RT-PCR) Negative (Negative) Imaging Data Radiologist's impression: Impressions Chest X-Ray 05/29/25 12:45 IMPRESSION: Chronic interstitial lung disease, without focal infiltrate or effusion. Discharge Plan Discharge Clinical Impression: Aggression Patient Disposition: Still a Patient Condition: Stable
--- NOTE | 2025-05-29 19:23 | PC.NURSE ---
Assumed care of patient after receiving bedside report from BRYCE Emmanuel @ [phone]
--- NOTE | 2025-05-29 21:42 | ADMGEN ---
This patient, Shavon Muñoz, was admitted to Medical Room 245-. Patient/family oriented to hospital policies and general routines including ID bracelet, bed and alarms, visiting hours, pain management, procedures, bathroom and other care routines, personal items, smoking policy, room service/diet, and visiting hours. Information on how to activate the Rapid Response Team has been discussed. Patient/Family are encouraged to report perceived risks to care and to ask questions if they do not understand what they are told or what they should do.
[2025-05-29 22:13] LABS: Magnesium 1.8 mg/dL (1.6-2.3)
--- NOTE | 2025-05-29 22:15 | PM.IMHP ---
H&P: HPI History of Present Illness Date/Time: 05/29/25 22:15 Chief Complaint: Aggression Narrative: 85-year-old female with a history of dementia. Patient used to live at a residential, now home with family. Patient has become increasingly aggressive and brought in. And attempt to place the patient from the ER by care coordination was unsuccessful. Family do not feel they can take care of her at home. Potassium 3.3. Review of Systems Review of Systems: All systems reviewed & are unremarkable except as noted in HPI and below (Subjective/HPI) [facility] Past Medical History Medical History (Updated 05/29/25 @ 18:56 by Chago Anaya MD) Left knee pain BMI 22.0-22.9, adult Interstitial lung disease Multinodular thyroid Multinodular thyroid Chronic obstructive pulmonary disease Degenerative joint disease Type 2 diabetes mellitus Hyperlipidemia Hypertension Pulmonary fibrosis Vitamin B12 deficiency Lung nodule Coronary artery calcification Mild ascending aorta dilatation Bilateral carotid bruits Hearing loss Osteopenia Polyp of colon Vitamin D deficiency Surgical History Surgical History History of tonsillectomy History of open reduction and internal fixation (ORIF) procedure repair of right wrist fracture History of surgical removal of ganglion cyst History of carpal tunnel surgery History of total right knee replacement Family History Family History Father Hypertension Family history of elevated blood lipids Family history of arthritis Family history of kidney disease Cerebrovascular accident Mother Carcinoma of colon Other Stomach cancer Other Brain cancer Other Family history of gout Family history of malignant neoplasm Family history of seizure disorder Social History Social History Social History: Surrogate medical decision maker: Taurus Delarosa, sibling ([phone]). Code status: Full code. Smoking packs per day: 1.5 Smoking cigarettes per day: 30.0 Years smoked: 30 Smoking pack-years: 45.00 Smoking status: Former smoker Tobacco type: cigarettes Second hand tobacco smoke exposure: No Smoking end date: 11/02/98 Alcohol intake: never Substance use: never Substance use type: does not use Lack of Transportation: YES Lack of Food: Sometimes True Current Housing: I Have Housing Concerned About Future Housing: Decline to Answer Difficulty Paying Gas/Electric Bills: No Difficulty Paying for Meds: Decline to Answer Currently Unemployed: YES Education: High School Diploma/GED Difficulty w/ Childcare or Family Care: No Living arrangements: alone Additional living arrangements comments: lives in an apartment in a long-term community Spiritual care concerns: No Meds Home Medications and Allergies Home Medications ?Medication ?Instructions ?Recorded ?Confirmed ?Type albuterol sulfate 90 mcg/actuation 2 puff inhalation QID PRN Dyspnea 12/12/19 05/17/25 History aerosol inhaler (ProAir HFA) polyethylene glycol 3350 17 17 g PO DAILY 03/01/21 05/17/25 History gram/dose oral powder (Miralax) fluticasone propionate 50 1 spray intranasal DAILY PRN Sinus 03/22/21 05/17/25 History mcg/actuation nasal Symptoms spray,suspension cholecalciferol (vitamin D3) 25 25 mcg PO DAILY 04/18/21 05/17/25 History mcg (1,000 unit) capsule (Vitamin D3) nystatin 100,000 unit/gram topical 1 applic topical BID PRN Rash 04/18/21 05/17/25 History cream Diabetic Shoes #1 ea 07/30/22 05/17/25 Rx mecobalamin (vitamin B12) 1,000 1,000 mcg PO DAILY #90 tabs 07/13/23 05/17/25 Rx mcg chewable tablet OneTouch Ultra Test (blood sugar #100 ea 09/02/23 05/17/25 Rx diagnostic) lancets 30 gauge #100 ea 12/24/23 05/17/25 Rx clotrimazole 1 % topical cream 1 applic topical Q12H #45 grams 07/26/24 05/17/25 Rx acetaminophen 500 mg capsule 500 mg PO Q6H PRN 05/02/25 05/17/25 History budesonide-formoterol HFA 160 2 puff inhalation Q12H #10.2 grams 05/02/25 05/17/25 Rx mcg-4.5 mcg/actuation aerosol inhaler (Symbicort) buspirone 10 mg tablet 10 mg PO TID #90 tabs 05/02/25 05/17/25 Rx calcium carbonate (Oyster Shell 500 mg PO DAILY 05/02/25 05/17/25 History Calcium) cetirizine 10 mg tablet (Allergy 10 mg PO DAILY PRN 05/02/25 05/17/25 History Relief (cetirizine)) morena BYMOUTH 05/02/25 05/17/25 History melatonin 3 mg capsule 3 mg PO QHS 05/02/25 05/17/25 History metformin 500 mg tablet 500 mg PO BID #180 tabs 05/02/25 05/17/25 Rx pravastatin 20 mg tablet 20 mg BYMOUTH QHS #90 tabs 05/02/25 05/17/25 Rx valsartan 160 mg tablet See Rx Instructions .Route 05/02/25 05/17/25 Rx .COMPLEX #90 tabs blood-glucose meter #1 ea 05/09/25 05/17/25 Rx sertraline 50 mg tablet 50 mg PO DAILY #90 tabs 05/17/25 05/17/25 Rx Allergies Allergy/AdvReac Type Severity Reaction Status Date / Time Penicillins Allergy Severe SWELLING, Verified 05/29/25 10:41 RASH tramadol Allergy Intermediate Itching Verified 05/29/25 10:41 Cephalosporins Allergy Mild Itching Verified 05/29/25 10:41 hydrocodone AdvReac Mild Irritable Verified 05/29/25 10:41 oxycodone AdvReac Irritable Verified 05/29/25 10:41 Vital Signs Vital Signs - 24 hr 05/29/25 10:25 05/29/25 11:43 05/29/25 13:32 Temperature 98.4 F Pulse Rate 86 73 80 Respiratory Rate 16 16 16 Blood Pressure 147/94 H 155/95 H 158/100 H Pulse Oximetry 96 98 97 Oxygen Delivery Room Air 05/29/25 15:06 05/29/25 17:52 05/29/25 19:21 Temperature Pulse Rate 79 76 84 Respiratory Rate 15 16 Blood Pressure 169/91 H 151/80 H 153/99 H Pulse Oximetry 97 98 97 Oxygen Delivery 05/29/25 22:00 Temperature 98.2 F Pulse Rate 68 Respiratory Rate 18 Blood Pressure 129/62 Pulse Oximetry 100 Oxygen Delivery Exam Const: General: comfortable and no acute distress Other: A&O x1. Pleasantly confused HENMT: Mouth: Yes moist mucous membranes Eyes: Pupils: Equal, round and reactive pupils present Neck: Neck: supple Resp: Effort & Inspection: normal respiratory effort Auscultation: clear to auscultation bilaterally Cardio: Rate: regular rate Rhythm: regular rhythm GI: Inspection: non-distended GI Palp: Yes Soft to palpation : General: Yes bladder normal to palpation Neuro: Motor exam (neuro): 5/5 motor strength present throughout Extrem: General: no edema H&P: Results Labs Labs: Short CBC 05/29/25 Range/Units 12:24 WBC 5.8 (4.5-10.0) K/mm3 Hgb 10.7 L (12.0-15.0) g/dL Hct 32.3 L (37.0-47.0) % Plt Count 245 (150-375) k/mm3 BMP 05/29/25 12:24 Sodium 131 L Potassium 3.3 L Chloride 96 L Carbon Dioxide 29 BUN 10 Creatinine 0.49 L Glucose 121 H Calcium 9.1 Liver Function 05/29/25 Range/Units 12:24 Total Bilirubin 0.5 (0.2-1.3) mg/dL AST 22 (14-36) U/L ALT 12 (6-35) U/L Alkaline Phosphatase 80 (38-126) U/L Albumin 3.8 (3.5-5.1) g/dL Urine 05/29/25 Range/Units 14:56 Urine Color Yellow (Yellow) Urine Appearance Cloudy H (Clear) Urine pH 7.5 (5.0-9.0) Ur Specific [place] 1.010 (1.001-1.035) Urine Protein Trace (Negative) mg/dL Urine Glucose (UA) Negative (Negative) mg/dL Assessment and Plan Assessment and plan (1) Aggression: Code(s): R46.89 - Other symptoms and signs involving appearance and behavior Status: Acute Plan 85-year-old female with a history of dementia. Patient used to live at a residential, now home with family. Patient has become increasingly aggressive and brought in. And attempt to place the patient from the ER by care coordination was unsuccessful. Family do not feel they can take care of her at home. Potassium 3.3. ----- Potassium replaced. Fall precautions, ambulate with assistance. Medication reconciliation is pending. Will restart any [employer]ICAL [employer]UMENT [employer]ABLE [employer]IC[employer] psychotropics. Promote good sleep-wake cycle. Care coordination to arrange placement. Full code. SCDs. Hospitalist MIPS Advance Care Plan I have confirmed that the patient's Advanced Care Plan is present, code status is documented, or surrogate decision maker is listed in patient medical record.: Yes Medication Reconciliation I have utilized all available resources to obtain, update and review the patients current medications (includes all prescriptions, OTC, herbals, cannabis, and nutritional supplements).: Yes
[2025-05-29] MEDS: POTASSIUM CHLORIDE 10 MEQ ER TABLET PO (23:02)
[2025-05-30 01:12] VITALS: O2SAT 100
[2025-05-30 04:26] VITALS: BP 155/87; PULSE 67; RESP 14; TEMP 36.6; O2SAT 100
[2025-05-30 05:19] LABS: Hematocrit 33.0 % (37.0-47.0); Hemoglobin 11.2 g/dL (12.0-15.0); Immature Granulocyte Percent A 0.3 % (0-0.5); Lymphocytes Absolute Auto 1.77 K/mm3 (0.9-3.2); Mean Corpuscular HGB Conc 33.9 g/dl (32-36); Mean Corpuscular Hemoglobin 31.7 pg (26-34); Mean Corpuscular Volume 93.5 fl (80-100); Nucleated Red Blood Cells Absolute Auto 0.000 K/mm3 (0.0-0.012); Nucleated Red Blood Cells Perc 0.0 % (0.0-0.2); Platelet Count Result 257 k/mm3 (150-375); Red Blood Count 3.53 M/mm3 (4.2-5.4); White Blood Count 6.8 K/mm3 (4.5-10.0)
[2025-05-30 05:45] LABS: Anion Gap 5 mmol/L (4-12); Blood Urea Nitrogen 9 mg/dL (7-17); Calcium 9.2 mg/dL (8.4-10.2); Carbon Dioxide 29 mmol/L (22-30); Chloride 94 mmol/L (98-107); Estimated CRCL calculation 63 ml/min; Estimated Glomerular Filt Rate > 60; Glucose 111 mg/dL (65-110); Magnesium 1.9 mg/dL (1.6-2.3); Potassium 3.1 mmol/L (3.4-5.0); Sodium 128 mmol/L (137-145)
[2025-05-30] MEDS: CHOLECALCIFEROL (VITAMIN D3) 25 MCG (1,000 UNITS) TABLET PO (08:11)
[2025-05-30] MEDS: SODIUM CHLORIDE 0.9% IV 1,000 ML 75 ML IV CONT ×2 (08:11→21:39)
[2025-05-30] MEDS: POTASSIUM CHLORIDE 10 MEQ ER TABLET PO (08:11)
[2025-05-30] MEDS: VALSARTAN 160 MG TABLET PO (08:11)
[2025-05-30] MEDS: SERTRALINE HCL 50 MG TABLET PO (08:11)
[2025-05-30] MEDS: CYANOCOBALAMIN 1,000 MCG TABLET 1000 MCG PO (08:12)
[2025-05-30] MEDS: POTASSIUM CHLORIDE 20 MEQ ER TABLET PO (08:12)
[2025-05-30] MEDS: CALCIUM CARBONATE (OSCAL) 500 MG TABLET PO (08:12)
[2025-05-30] MEDS: ACETAMINOPHEN 500 MG TABLET PO (08:12)
--- NOTE | 2025-05-30 12:41 | P.PNIM_ITS ---
Progress Note: A&P Assessment and Plan (1) Aggression: Code(s): R46.89 - Other symptoms and signs involving appearance and behavior Status: Acute Assessment and Plan: * Pt with normal behavior, remains confused. (2) Hyponatremia: Code(s): E87.1 - Hypo-osmolality and hyponatremia Status: Acute Assessment and Plan: * Sodium is low at 128. * Normal Saline is initiated at 75 ml/hr. * Check urine and serum osmolality. (3) Hypokalemia: Code(s): E87.6 - Hypokalemia Status: Resolved Assessment and Plan: * Potassium low at 3.1. * 30 mEq of Potassium chloride given po * Recheck in AM. (4) Diabetes mellitus: Code(s): E11.9 - Type 2 diabetes mellitus without complications Status: Chronic Assessment and Plan: * Glucose checks AC and HS * Hypoglycemic protocol * SSI low dose * Check A1C * Hold oral hypoglycemics. (5) Essential (primary) hypertension: Code(s): I10 - Essential (primary) hypertension Status: Chronic Assessment and Plan: * Continue home medications as there seems to be good control of BP.. * Continue to monitor BP. (6) Hyperlipidemia: Qualifiers: Hyperlipidemia type: unspecified Qualified Code(s): E78.5 - Hyperlipidemia, unspecified Code(s): E78.5 - Hyperlipidemia, unspecified Status: Chronic Assessment and Plan: * Continue statin therapy Plan Placement Time Spent With Patient Time with patient: 15 - 25 minutes Subjective Date/time seen: 05/30/25 12:41 Interval history: This is a pleasantly confused pt that was examined today in interval assessment that does not appear to show any acute distress. She is alert and oriented to self only and knowing she is in a hospital but does not know where or why. Care coordination is in the process of assisting with placement. Pt without complaint, however she has noted Sodium of 128 today and Potassium of 3.1. Review of Systems Review of Systems: All systems reviewed & are unremarkable except as noted in HPI and below Exam Const: General: comfortable and no acute distress Other: pleasantly confused and not combative. HENMT: Face/Nose/Sinus: Normal nares present Mouth: Yes moist mucous membranes Eyes: General: appearance normal, both eyes and all related structures Scl era: sclerae normal Pupils: Equal, round and reactive pupils present EOM: EOMs intact bilaterally Neck: Neck: supple and no JVD Lymphatic: lymphadenopathy not noted Resp: Effort & Inspection: normal respiratory effort Auscultation: clear to auscultation bilaterally Cardio: Rate: regular rate Rhythm: regular rhythm Heart sounds: no gallops, no murmurs and no rubs GI: Inspection: non-distended GI Palp: Yes Soft to palpation and No Tenderness to palpation present (GI) Auscultation: normal bowel sounds Skin: General skin exam: normal color, no rashes or lesions noted and no erythema Wounds: no wounds Neuro: Speech: normal speech Motor exam (neuro): 5/5 motor strength present throughout and Normal motor muscle tone present throughout Sensory Exam: normal sensation Extrem: General: normal to inspection and no edema Psych: Affect: normal affect Objective Data Vital Signs Vital Signs: Vital Signs - 24 hr 05/29/25 13:32 05/29/25 15:06 05/29/25 17:52 Temperature Pulse Rate 80 79 76 Respiratory Rate 16 15 16 Blood Pressure 158/100 H 169/91 H 151/80 H Pulse Oximetry 97 97 98 Oxygen Delivery Fraction of Inspired Oxygen 05/29/25 19:21 05/29/25 22:00 05/30/25 01:12 Temperature 98.2 F Pulse Rate 84 68 Respiratory Rate 18 Blood Pressure 153/99 H 129/62 Pulse Oximetry 97 100 100 Oxygen Delivery Room Air Fraction of Inspired Oxygen 05/30/25 04:26 05/30/25 08:10 Temperature 97.9 F Pulse Rate 67 Respiratory Rate 14 Blood Pressure 155/87 H Pulse Oximetry 100 Oxygen Delivery Room Air Fraction of Inspired Oxygen Intake/Output Intake/Output: Intake & Output 05/27/25 05/28/25 05/29/25 05/30/25 23:59 23:59 23:59 23:59 Intake Total 0 Balance 0 Meds/Results Medications: Active Medications Generic Name Dose Route Start Last Admin Trade Name Freq PRN Reason Stop Dose Admin Acetaminophen 500 mg 05/30/25 07:05 05/30/25 08:12 Acetaminophen 500 Mg Tablet PO 500 mg Q6H PRN Administration fever or pain Albuterol 2 puff 05/30/25 07:05 Albuterol Sulfate (*Sp) Aerosol 1 Puff INHALATION QID PRN Dyspnea Buspirone HCl 10 mg 05/30/25 09:00 05/30/25 12:16 Buspirone Hcl 10 Mg Tablet PO 10 mg TID GORDO Administration Calcium Carbonate 500 mg 05/30/25 09:00 05/30/25 08:12 Calcium Carbonate (Oscal) 500 Mg Tablet PO 500 mg DAILY GORDO Administration Cyanocobalamin 1,000 mcg 05/30/25 09:00 05/30/25 08:12 Cyanocobalamin 1,000 Mcg Tablet PO 1,000 mcg QAM GORDO Administration Sodium Chloride 1,000 mls @ 75 mls/hr 05/30/25 07:10 05/30/25 08:11 Normal Saline Iv IV CONT 75 mls/hr .[id number] GORDO Administration Loratadine 10 mg 05/30/25 07:13 Loratadine 10 Mg Tablet PO DAILY PRN allergy symptoms Melatonin 3 mg 05/30/25 21:00 Melatonin 3 Mg Tablet PO QHS GORDO Pravastatin Sodium 20 mg 05/30/25 21:00 Pravastatin Sodium 20 Mg Tablet BY MOUTH QHS GORDO Fluticasone/Salmeterol 2 puff 05/30/25 08:00 05/30/25 10:12 Fluticasone/Salmeterol 115-21 Mcg Inhaler 1 Puff INHALATION Not Given Q12HRT GORDO Sertraline HCl 50 mg 05/30/25 09:00 05/30/25 08:11 Sertraline Hcl 50 Mg Tablet PO 50 mg DAILY GORDO Administration Valsartan 160 mg 05/30/25 09:00 05/30/25 08:11 Valsartan 160 Mg Tablet PO 160 mg DAILY GORDO Administration Vitamin D 25 mcg 05/30/25 09:00 05/30/25 08:11 Cholecalciferol (Vitamin D3) 25 Mcg (1,000 Units) Tablet PO 25 mcg DAILY GORDO Administration Radiology Results: ITS Impressions Chest X-Ray 05/29/25 12:45 IMPRESSION: Chronic interstitial lung disease, without focal infiltrate or effusion. Labs Labs: Laboratory Results - last 24 hr 05/29/25 05/29/25 05/29/25 12:24 14:56 21:58 WBC 5.8 RBC 3.44 L Hgb 10.7 L Hct 32.3 L MCV 93.9 MCH 31.1 MCHC 33.1 RDW 13.2 Plt Count 245 MPV 8.6 Immature Gran % (Auto) 0.3 Neut % (Auto) 60.4 Lymph % (Auto) 31.2 [place] % (Auto) 7.1 Eos % (Auto) 0.7 Baso % (Auto) 0.3 Lymph # (Auto) 1.81 [place] # (Auto) 0.4 Eos # (Auto) 0.0 Baso # (Auto) 0.0 Abs Immat Gran (auto) 0.02 Absolute Neuts (auto) 3.5 Absolute Nucleated RBC 0.000 Nucleated RBC % 0.0 Sodium 131 L Potassium 3.3 L Chloride 96 L Carbon Dioxide 29 Anion Gap 6 BUN 10 Creatinine 0.49 L Estim Creat Clear Calc 67 Estimated GFR > 60 Glucose 121 H Calcium 9.1 Magnesium 1.8 Total Bilirubin 0.5 AST 22 ALT 12 Alkaline Phosphatase 80 Total Protein 6.6 Albumin 3.8 Urine Color Yellow Urine Appearance Cloudy H Urine pH 7.5 Ur Specific [place] 1.010 Urine Protein Trace Urine Glucose (UA) Negative Urine Ketones Negative Ur Blood (Man) Negative Urine Nitrate Negative Urine Bilirubin Negative Urine Urobilinogen 0.2 Add Ur Microanalysis Reviewed Leukocyte Esterase Rfl Trace H Urine RBC 0-2 Urine WBC 0-5 Ur Squamous Epith Cells Occasional Urine Bacteria None seen Urine Casts 3-5 Influenza A (RT-PCR) Negative Influenza B (RT-PCR) Negative RSV (RT-PCR) Negative SARS-CoV-2 RNA (RT-PCR) Negative 05/30/25 04:51 WBC 6.8 RBC 3.53 L Hgb 11.2 L Hct 33.0 L MCV 93.5 MCH 31.7 MCHC 33.9 RDW 13.2 Plt Count 257 MPV 8.9 Immature Gran % (Auto) 0.3 Neut % (Auto) 62.3 Lymph % (Auto) 25.9 [place] % (Auto) 9.4 H Eos % (Auto) 1.8 Baso % (Auto) 0.3 Lymph # (Auto) 1.77 [place] # (Auto) 0.6 Eos # (Auto) 0.1 Baso # (Auto) 0.0 Abs Immat Gran (auto) 0.02 Absolute Neuts (auto) 4.3 Absolute Nucleated RBC 0.000 Nucleated RBC % 0.0 Sodium 128 L Potassium 3.1 L Chloride 94 L Carbon Dioxide 29 Anion Gap 5 BUN 9 Creatinine 0.52 L Estim Creat Clear Calc 63 Estimated GFR > 60 Glucose 111 H Calcium 9.2 Magnesium 1.9 Total Bilirubin AST ALT Alkaline Phosphatase Total Protein Albumin Urine Color Urine Appearance Urine pH Ur Specific [place] Urine Protein Urine Glucose (UA) Urine Ketones Ur Blood (Man) Urine Nitrate Urine Bilirubin Urine Urobilinogen Add Ur Microanalysis Leukocyte Esterase Rfl Urine RBC Urine WBC Ur Squamous Epith Cells Urine Bacteria Urine Casts Influenza A (RT-PCR) Influenza B (RT-PCR) RSV (RT-PCR) SARS-CoV-2 RNA (RT-PCR) Quality VTE Prophylaxis VTE prophylaxis: mechanical ordered
[2025-05-30 14:00] VITALS: BP 141/83; PULSE 79; RESP 16; TEMP 36.6; O2SAT 98
[2025-05-30] MEDS: MELATONIN 3 MG TABLET PO (20:06)
[2025-05-30] MEDS: PRAVASTATIN SODIUM 20 MG TABLET BY MOUTH (20:06)
[2025-05-30 20:37] VITALS: PULSE 77; RESP 18
[2025-05-30] MEDS: FLUTICASONE/SALMETEROL 115-21 MCG INHALER 1 PUFF 2 PUFF INHALATION (20:37)
[2025-05-30 20:49] LABS: Hemoglobin A1C 6.2 % (<5.7)
[2025-05-30 21:28] VITALS: BP 162/88; PULSE 84; RESP 18; TEMP 36.1; O2SAT 96
[2025-05-31 04:20] VITALS: BP 149/74; PULSE 68; RESP 18; TEMP 36.5; O2SAT 98
[2025-05-31 05:08] LABS: Hematocrit 34.9 % (37.0-47.0); Hemoglobin 11.6 g/dL (12.0-15.0); Immature Granulocyte Percent A 0.3 % (0-0.5); Lymphocytes Absolute Auto 1.56 K/mm3 (0.9-3.2); Mean Corpuscular HGB Conc 33.2 g/dl (32-36); Mean Corpuscular Hemoglobin 31.1 pg (26-34); Mean Corpuscular Volume 93.6 fl (80-100); Nucleated Red Blood Cells Absolute Auto 0.000 K/mm3 (0.0-0.012); Nucleated Red Blood Cells Perc 0.0 % (0.0-0.2); Platelet Count Result 274 k/mm3 (150-375); Red Blood Count 3.73 M/mm3 (4.2-5.4); White Blood Count 7.7 K/mm3 (4.5-10.0)
[2025-05-31 05:32] LABS: Alanine Aminotransferase 13 U/L (6-35); Albumin Level 3.8 g/dL (3.5-5.1); Alkaline Phosphatase 79 U/L (38-126); Anion Gap 9 mmol/L (4-12); Aspartate Amino Transferase 24 U/L (14-36); Bilirubin,Total 0.7 mg/dL (0.2-1.3); Blood Urea Nitrogen 9 mg/dL (7-17); Calcium 9.2 mg/dL (8.4-10.2); Carbon Dioxide 26 mmol/L (22-30); Chloride 96 mmol/L (98-107); Estimated CRCL calculation 62 ml/min; Estimated Glomerular Filt Rate > 60; Glucose 125 mg/dL (65-110); Magnesium 1.8 mg/dL (1.6-2.3); Potassium 2.9 mmol/L (3.4-5.0); Sodium 131 mmol/L (137-145); Total Protein 6.6 g/dL (6.3-8.2)
[2025-05-31] MEDS: FLUTICASONE/SALMETEROL 115-21 MCG INHALER 1 PUFF 2 PUFF INHALATION ×2 (08:47→21:43)
[2025-05-31 08:49] VITALS: PULSE 77; RESP 20; O2SAT 94
[2025-05-31] MEDS: SERTRALINE HCL 50 MG TABLET PO (09:21)
[2025-05-31] MEDS: VALSARTAN 160 MG TABLET PO (09:21)
[2025-05-31] MEDS: ACETAMINOPHEN 500 MG TABLET PO (09:21)
[2025-05-31] MEDS: CALCIUM CARBONATE (OSCAL) 500 MG TABLET PO (09:21)
[2025-05-31] MEDS: CHOLECALCIFEROL (VITAMIN D3) 25 MCG (1,000 UNITS) TABLET PO (09:21)
[2025-05-31] MEDS: CYANOCOBALAMIN 1,000 MCG TABLET 1000 MCG PO (09:22)
[2025-05-31] MEDS: SODIUM CHLORIDE 0.9% IV 1,000 ML 75 ML IV CONT (11:15)
[2025-05-31 13:42] VITALS: BP 162/69; PULSE 97; RESP 18; TEMP 36.7; O2SAT 98
--- NOTE | 2025-05-31 15:36 | P.PNIM_ITS ---
Progress Note: A&P Assessment and Plan (1) Hyponatremia: Code(s): E87.1 - Hypo-osmolality and hyponatremia Status: Acute Plan (1) Aggression: Code(s): R46.89 - Other symptoms and signs involving appearance and behavior Status: Acute Assessment and Plan: * Pt with normal behavior, remains confused. (2) Hyponatremia: Code(s): E87.1 - Hypo-osmolality and hyponatremia Status: Acute Assessment and Plan: * Sodium is low at 128. RECEIVED Normal Saline is initiated at 75 ml/h, sodium 131 today on the baseline Discontinue normal saline IV Start sodium chloride 1 g t.i.d.. p.o.. .(3) Hypokalemia: Code(s): E87.6 - Hypokalemia Status: Resolved Assessment and Plan: Hypokalemia 2.9 Start potassium chloride 40 mEq IV and 40 mg b.i.d. p.o. Recheck in AM. 4) Diabetes mellitus: Code(s): E11.9 - Type 2 diabetes mellitus without complications Status: Chronic Assessment and Plan: * Glucose checks AC and HS * Hypoglycemic protocol * SSI low dose * Check A1C * Hold oral hypoglycemics .(5) Essential (primary) hypertension: Code(s): I10 - Essential (primary) hypertension Status: Chronic Assessment and Plan: * Continue home medications as there seems to be good control of BP.. * Continue to monitor BP. (6) Hyperlipidemia: Qualifiers: Hyperlipidemia type: unspecified Qualified Code(s): E78.5 - Hyperlipidemia, unspecified Code(s): E78.5 - Hyperlipidemia, unspecified Status: Chronic Assessment and Plan: Continue statin therapy [facility] to [facility] when electrolyte abnormality is corrected Subjective Date/time seen: 05/31/25 15:36 Interval history: I saw exam patient today. Patient is alert, not oriented x3, patient has no complaints, has no obvious distress Denies nausea vomiting diarrhea Exam Narrative: GENERAL: Pleasant, in no acute distress. Well-nourished. - EYES: EOMI. Anicteric. - HENT: Moist mucous membranes. - LUNGS: Clear to auscultation bilateral ly, no wheezing, rhonchi, or rales. - CARDIOVASCULAR: Regular rate and rhyth m. No murmur. No JVD. - ABDOMEN: Soft, non-tender and non-dist ended. No palpable masses. - EXTREMITIES: No edema. Peripheral puls es 2+. Non-tender. - NEUROLOGIC: No focal neurological defi cits. CN II-XII grossly intact. - PSYCHIATRIC: Awake, Alert and not orie nted x 3. Appropriate mood and affect. - SKIN: No rashes or lesions. Warm. - LYMPH: No cervical lymphadenopathy. Objective Data Vital Signs Vital Signs: Vital Signs - 24 hr 05/30/25 20:00 05/30/25 20:37 05/30/25 21:28 Temperature 97 F L Pulse Rate 77 84 Respiratory Rate 18 18 Blood Pressure 162/88 H Pulse Oximetry 96 Oxygen Delivery Room Air 05/31/25 04:20 05/31/25 08:49 05/31/25 08:49 Temperature 97.7 F Pulse Rate 68 77 77 Respiratory Rate 18 20 20 Blood Pressure 149/74 H Pulse Oximetry 98 94 Oxygen Delivery Room Air 05/31/25 09:20 05/31/25 13:42 05/31/25 14:44 Temperature 98.0 F Pulse Rate 97 Respiratory Rate 18 Blood Pressure 162/69 H Pulse Oximetry 98 Oxygen Delivery Room Air Room Air Intake/Output Intake/Output: Intake & Output 05/28/25 05/29/25 05/30/25 05/31/25 23:59 23:59 23:59 23:59 Intake Total 1420 1760 Balance 1420 1760 Meds/Results Medications: Active Medications Generic Name Dose Route Start Last Admin Trade Name Freq PRN Reason Stop Dose Admin Acetaminophen 500 mg 05/30/25 07:05 05/31/25 09:21 Acetaminophen 500 Mg Tablet PO 500 mg Q6H PRN Administration fever or pain Albuterol 2 puff 05/30/25 07:05 Albuterol Sulfate (*Sp) Aerosol 1 Puff INHALATION QID PRN Dyspnea Buspirone HCl 10 mg 05/30/25 09:00 05/31/25 12:34 Buspirone Hcl 10 Mg Tablet PO 10 mg TID GORDO Administration Calcium Carbonate 500 mg 05/30/25 09:00 05/31/25 09:21 Calcium Carbonate (Oscal) 500 Mg Tablet PO 500 mg DAILY GORDO Administration Cyanocobalamin 1,000 mcg 05/30/25 09:00 05/31/25 09:22 Cyanocobalamin 1,000 Mcg Tablet PO 1,000 mcg QAM GORDO Administration Dextrose 12.5 gm 05/30/25 12:49 Dextrose 50% 25 Gm/50 Ml Syringe IV PUSH PRN PRN Hypoglycemia Protocol Glucagon 1 mg 05/30/25 12:49 Glucagon For Inj 1 Mg Vial IM PRN PRN Hypoglycemia Protocol Glucose 15 gm 05/30/25 12:49 Glucose Oral Gel 15 Gm Of Glucse In 37.5 Gm Tube PO PRN PRN Hypoglycemia Protocol Sodium Chloride 1,000 mls @ 75 mls/hr 05/30/25 07:10 05/31/25 11:15 Normal Saline Iv IV CONT 75 mls/hr .[id number] GORDO Administration Dextrose 1,000 mls @ 100 mls/hr 05/30/25 12:49 Dextrose 5% 1,000 Ml IVPB PRN PRN Hypoglycemia Protocol Insulin Aspart 2 - 5 units 05/30/25 17:00 05/31/25 11:53 Insulin Aspart (*Bkc) 100 Units/Ml SUB-Q Not Given TIDWM GORDO Protocol Insulin Aspart 1 - 2 units 05/30/25 21:00 05/31/25 04:37 Insulin Aspart (*Bkc) 100 Units/Ml SUB-Q Not Given HS GORDO Protocol Loratadine 10 mg 05/30/25 07:13 Loratadine 10 Mg Tablet PO DAILY PRN allergy symptoms Melatonin 3 mg 05/30/25 21:00 05/30/25 20:06 Melatonin 3 Mg Tablet PO 3 mg QHS GODRO Administration Pravastatin Sodium 20 mg 05/30/25 21:00 05/30/25 20:06 Pravastatin Sodium 20 Mg Tablet BY MOUTH 20 mg QHS GORDO Administration Fluticasone/Salmeterol 2 puff 05/30/25 08:00 05/31/25 08:47 Fluticasone/Salmeterol 115-21 Mcg Inhaler 1 Puff INHALATION 2 puff Q12HRT GORDO Administration Sertraline HCl 50 mg 05/30/25 09:00 05/31/25 09:21 Sertraline Hcl 50 Mg Tablet PO 50 mg DAILY GORDO Administration Valsartan 160 mg 05/30/25 09:00 05/31/25 09:21 Valsartan 160 Mg Tablet PO 160 mg DAILY GORDO Administration Vitamin D 25 mcg 05/30/25 09:00 05/31/25 09:21 Cholecalciferol (Vitamin D3) 25 Mcg (1,000 Units) Tablet PO 25 mcg DAILY GORDO Administration Radiology Results: ITS Impressions Chest X-Ray 05/29/25 12:45 IMPRESSION: Chronic interstitial lung disease, without focal infiltrate or effusion. Labs Labs: Laboratory Results - last 24 hr 05/30/25 05/30/25 05/30/25 13:06 17:07 21:42 WBC RBC Hgb Hct MCV MCH MCHC RDW Plt Count MPV Immature Gran % (Auto) Neut % (Auto) Lymph % (Auto) [place] % (Auto) Eos % (Auto) Baso % (Auto) Lymph # (Auto) [place] # (Auto) Eos # (Auto) Baso # (Auto) Abs Immat Gran (auto) Absolute Neuts (auto) Absolute Nucleated RBC Nucleated RBC % Sodium Potassium Chloride Carbon Dioxide Anion Gap BUN Creatinine Estim Creat Clear Calc Estimated GFR Glucose POC Capillary Glucose 127 H 123 H Hemoglobin A1c 6.2 H Calcium Magnesium Total Bilirubin AST ALT Alkaline Phosphatase Total Protein Albumin 05/31/25 05/31/25 05/31/25 04:14 07:29 11:52 WBC 7.7 RBC 3.73 L Hgb 11.6 L Hct 34.9 L MCV 93.6 MCH 31.1 MCHC 33.2 RDW 13.2 Plt Count 274 MPV 8.9 Immature Gran % (Auto) 0.3 Neut % (Auto) 69.4 Lymph % (Auto) 20.2 [place] % (Auto) 8.3 Eos % (Auto) 1.4 Baso % (Auto) 0.4 Lymph # (Auto) 1.56 [place] # (Auto) 0.6 Eos # (Auto) 0.1 Baso # (Auto) 0.0 Abs Immat Gran (auto) 0.02 Absolute Neuts (auto) 5.4 Absolute Nucleated RBC 0.000 Nucleated RBC % 0.0 Sodium 131 L Potassium 2.9 L Chloride 96 L Carbon Dioxide 26 Anion Gap 9 BUN 9 Creatinine 0.53 L Estim Creat Clear Calc 62 Estimated GFR > 60 Glucose 125 H POC Capillary Glucose 121 H 178 H Hemoglobin A1c Calcium 9.2 Magnesium 1.8 Total Bilirubin 0.7 AST 24 ALT 13 Alkaline Phosphatase 79 Total Protein 6.6 Albumin 3.8
[2025-05-31] MEDS: POTASSIUM CHLORIDE INJ 40 MEQ in SODIUM CHLORIDE 0.9% IV 500 ML 130 MEQ IVPB (16:20)
[2025-05-31] MEDS: POTASSIUM CHLORIDE 20 MEQ PACKET (FOR LIQUID) 40 MEQ PO (16:21)
[2025-05-31 21:01] VITALS: BP 143/72; PULSE 71; RESP 18; TEMP 36.6; O2SAT 99
[2025-05-31] MEDS: MELATONIN 3 MG TABLET PO (21:28)
[2025-05-31] MEDS: PRAVASTATIN SODIUM 20 MG TABLET BY MOUTH (21:28)
[2025-05-31 21:45] VITALS: PULSE 72; RESP 18
[2025-05-31 21:46] VITALS: O2SAT 99
[2025-06-01] MEDS: SODIUM CHLORIDE 0.9% IV 1,000 ML 75 ML IV CONT ×2 (04:59→18:46)
[2025-06-01 06:00] VITALS: BP 148/66; PULSE 82; RESP 16; TEMP 36.6; O2SAT 97
[2025-06-01] MEDS: FLUTICASONE/SALMETEROL 115-21 MCG INHALER 1 PUFF 2 PUFF INHALATION ×2 (07:42→20:11)
[2025-06-01] MEDS: CALCIUM CARBONATE (OSCAL) 500 MG TABLET PO (08:12)
[2025-06-01] MEDS: SODIUM CHLORIDE 500 MG TABLET 1000 MG PO ×2 (08:12→12:59)
[2025-06-01] MEDS: SERTRALINE HCL 50 MG TABLET PO (08:12)
[2025-06-01] MEDS: VALSARTAN 160 MG TABLET PO (08:12)
[2025-06-01] MEDS: CHOLECALCIFEROL (VITAMIN D3) 25 MCG (1,000 UNITS) TABLET PO (08:13)
[2025-06-01] MEDS: POTASSIUM CHLORIDE 20 MEQ PACKET (FOR LIQUID) 40 MEQ PO ×2 (08:13→17:13)
[2025-06-01] MEDS: CYANOCOBALAMIN 1,000 MCG TABLET 1000 MCG PO (08:13)
--- NOTE | 2025-06-01 10:11 | P.PNIM_ITS ---
Progress Note: A&P Assessment and Plan (1) Hyponatremia: Code(s): E87.1 - Hypo-osmolality and hyponatremia Status: Acute Plan (1) Aggression: Code(s): R46.89 - Other symptoms and signs involving appearance and behavior Status: Acute Assessment and Plan: * Pt with normal behavior, remains confused. (2) Hyponatremia: Code(s): E87.1 - Hypo-osmolality and hyponatremia Status: Acute Assessment and Plan: * Sodium is low at 128. RECEIVED Normal Saline is initiated at 75 ml/h, sodium 131 today on the baseline Discontinue normal saline IV on sodium chloride 1 g t.i.d.. p.o.. Increase sodium to 2 g b.i.d. p.o. .(3) Hypokalemia: Code(s): E87.6 - Hypokalemia Status: Resolved Assessment and Plan: Hypokalemia 2.9 Start potassium chloride 40 mEq IV and 40 mg b.i.d. p.o. Recheck in AM. Corrected 4) Diabetes mellitus: Code(s): E11.9 - Type 2 diabetes mellitus without complications Status: Chronic Assessment and Plan: * Glucose checks AC and HS * Hypoglycemic protocol * SSI low dose * Check A1C * Hold oral hypoglycemics .(5) Essential (primary) hypertension: Code(s): I10 - Essential (primary) hypertension Status: Chronic Assessment and Plan: * Continue home medications as there seems to be good control of BP.. * Continue to monitor BP. (6) Hyperlipidemia: Qualifiers: Hyperlipidemia type: unspecified Qualified Code(s): E78.5 - Hyperlipidemia, unspecified Code(s): E78.5 - Hyperlipidemia, unspecified Status: Chronic Assessment and Plan: Continue statin therapy Discharge patient to halfway when electrolyte abnormality is corrected Subjective Date/time seen: 06/01/25 10:11 Interval history: I saw exam patient today. Patient is alert, not oriented x3, patient has no complaints, has no obvious distress Denies nausea vomiting diarrhea No new issue Sodium going down Exam Narrative: GENERAL: Pleasant, in no acute distress. Well-nourished. - EYES: EOMI. Anicteric. - HENT: Moist mucous membranes. - LUNGS: Clear to auscultation bilateral ly, no wheezing, rhonchi, or rales. - CARDIOVASCULAR: Regular rate and rhyth m. No murmur. No JVD. - ABDOMEN: Soft, non-tender and non-dist ended. No palpable masses. - EXTREMITIES: No edema. Peripheral puls es 2+. Non-tender. - NEUROLOGIC: No focal neurological defi cits. CN II-XII grossly intact. - PSYCHIATRIC: Awake, Alert and not orie nted x 3. Appropriate mood and affect. - SKIN: No rashes or lesions. Warm. - LYMPH: No cervical lymphadenopathy. Objective Data Vital Signs Vital Signs: Vital Signs - 24 hr 05/31/25 13:42 05/31/25 14:44 05/31/25 21:01 Temperature 98.0 F 97.8 F Pulse Rate 97 71 Respiratory Rate 18 18 Blood Pressure 162/69 H 143/72 H Pulse Oximetry 98 99 Oxygen Delivery Room Air 05/31/25 21:20 05/31/25 21:45 05/31/25 21:46 Temperature Pulse Rate 72 Respiratory Rate 18 Blood Pressure Pulse Oximetry 99 Oxygen Delivery Room Air Room Air 06/01/25 06:00 Temperature 97.8 F Pulse Rate 82 Respiratory Rate 16 Blood Pressure 148/66 H Pulse Oximetry 97 Oxygen Delivery Intake/Output Intake/Output: Intake & Output 05/29/25 05/30/25 05/31/25 06/01/25 23:59 23:59 23:59 23:59 Intake Total 1420 2600 1000 Balance 1420 2600 1000 Meds/Results Medications: Active Medications Generic Name Dose Route Start Last Admin Trade Name Freq PRN Reason Stop Dose Admin Acetaminophen 500 mg 05/30/25 07:05 05/31/25 09:21 Acetaminophen 500 Mg Tablet PO 500 mg Q6H PRN Administration fever or pain Albuterol 2 puff 05/30/25 07:05 Albuterol Sulfate (*Sp) Aerosol 1 Puff INHALATION QID PRN Dyspnea Buspirone HCl 10 mg 05/30/25 09:00 06/01/25 08:12 Buspirone Hcl 10 Mg Tablet PO 10 mg TID GORDO Administration Calcium Carbonate 500 mg 05/30/25 09:00 06/01/25 08:12 Calcium Carbonate (Oscal) 500 Mg Tablet PO 500 mg DAILY GORDO Administration Cyanocobalamin 1,000 mcg 05/30/25 09:00 06/01/25 08:13 Cyanocobalamin 1,000 Mcg Tablet PO 1,000 mcg QAM GORDO Administration Dextrose 12.5 gm 05/30/25 12:49 Dextrose 50% 25 Gm/50 Ml Syringe IV PUSH PRN PRN Hypoglycemia Protocol Glucagon 1 mg 05/30/25 12:49 Glucagon For Inj 1 Mg Vial IM PRN PRN Hypoglycemia Protocol Glucose 15 gm 05/30/25 12:49 Glucose Oral Gel 15 Gm Of Glucse In 37.5 Gm Tube PO PRN PRN Hypoglycemia Protocol Sodium Chloride 1,000 mls @ 75 mls/hr 05/30/25 07:10 06/01/25 04:59 Normal Saline Iv IV CONT 75 mls/hr .[id number] GORDO Administration Dextrose 1,000 mls @ 100 mls/hr 05/30/25 12:49 Dextrose 5% 1,000 Ml IVPB PRN PRN Hypoglycemia Protocol Insulin Aspart 2 - 5 units 05/30/25 17:00 06/01/25 08:35 Insulin Aspart (*Bkc) 100 Units/Ml SUB-Q Not Given TIDWM GORDO Protocol Insulin Aspart 1 - 2 units 05/30/25 21:00 05/31/25 21:26 Insulin Aspart (*Bkc) 100 Units/Ml SUB-Q Not Given HS GORDO Protocol Loratadine 10 mg 05/30/25 07:13 Loratadine 10 Mg Tablet PO DAILY PRN allergy symptoms Melatonin 3 mg 05/30/25 21:00 05/31/25 21:28 Melatonin 3 Mg Tablet PO 3 mg QHS GORDO Administration Potassium Chloride 40 meq 05/31/25 17:00 06/01/25 08:13 Potassium Chloride 20 Meq Packet (For Liquid) PO 40 meq BID GORDO Administration Pravastatin Sodium 20 mg 05/30/25 21:00 05/31/25 21:28 Pravastatin Sodium 20 Mg Tablet BY MOUTH 20 mg QHS GORDO Administration Fluticasone/Salmeterol 2 puff 05/30/25 08:00 06/01/25 07:42 Fluticasone/Salmeterol 115-21 Mcg Inhaler 1 Puff INHALATION 2 puff Q12HRT GORDO Administration Sertraline HCl 50 mg 05/30/25 09:00 06/01/25 08:12 Sertraline Hcl 50 Mg Tablet PO 50 mg DAILY GORDO Administration Sodium Chloride 1,000 mg 05/31/25 18:15 06/01/25 08:12 Sodium Chloride 500 Mg Tablet PO 1,000 mg TID GORDO Administration Valsartan 160 mg 05/30/25 09:00 06/01/25 08:12 Valsartan 160 Mg Tablet PO 160 mg DAILY GORDO Administration Vitamin D 25 mcg 05/30/25 09:00 06/01/25 08:13 Cholecalciferol (Vitamin D3) 25 Mcg (1,000 Units) Tablet PO 25 mcg DAILY GORDO Administration Radiology Results: ITS Impressions Chest X-Ray 05/29/25 12:45 IMPRESSION: Chronic interstitial lung disease, without focal infiltrate or effusion. Labs Labs: Laboratory Results - last 24 hr 05/31/25 05/31/25 05/31/25 11:52 17:11 20:00 POC Capillary Glucose 178 H 144 H 149 H 06/01/25 08:01 POC Capillary Glucose 131 H
[2025-06-01 10:35] LABS: Hematocrit 35.5 % (37.0-47.0); Hemoglobin 11.9 g/dL (12.0-15.0); Immature Granulocyte Percent A 0.3 % (0-0.5); Lymphocytes Absolute Auto 1.76 K/mm3 (0.9-3.2); Mean Corpuscular HGB Conc 33.5 g/dl (32-36); Mean Corpuscular Hemoglobin 31.4 pg (26-34); Mean Corpuscular Volume 93.7 fl (80-100); Nucleated Red Blood Cells Absolute Auto 0.000 K/mm3 (0.0-0.012); Nucleated Red Blood Cells Perc 0.0 % (0.0-0.2); Platelet Count Result 261 k/mm3 (150-375); Red Blood Count 3.79 M/mm3 (4.2-5.4); White Blood Count 6.7 K/mm3 (4.5-10.0)
[2025-06-01 11:02] LABS: Anion Gap 4 mmol/L (4-12); Blood Urea Nitrogen 8 mg/dL (7-17); Calcium 9.5 mg/dL (8.4-10.2); Carbon Dioxide 29 mmol/L (22-30); Chloride 95 mmol/L (98-107); Estimated CRCL calculation 56 ml/min; Estimated Glomerular Filt Rate > 60; Glucose 144 mg/dL (65-110); Potassium 4.5 mmol/L (3.4-5.0); Sodium 128 mmol/L (137-145)
[2025-06-01 14:00] VITALS: BP 150/83; PULSE 79; RESP 16; TEMP 36.4; O2SAT 99
[2025-06-01] MEDS: SODIUM CHLORIDE 1 GM TABLET 2 GM PO (17:13)
[2025-06-01 20:12] VITALS: PULSE 68; RESP 20
[2025-06-01 20:16] VITALS: PULSE 67; RESP 20; O2SAT 97
[2025-06-01] MEDS: PRAVASTATIN SODIUM 20 MG TABLET BY MOUTH (20:52)
[2025-06-01] MEDS: MELATONIN 3 MG TABLET PO (20:52)
[2025-06-01 20:55] VITALS: BP 163/77; PULSE 66; RESP 17; TEMP 36.5; O2SAT 99
[2025-06-01 23:07] LABS: Osmolality, Serum 266 mOsmol/kg (280-301)
[2025-06-02 05:00] VITALS: BP 158/85; PULSE 79; RESP 17; TEMP 36.4; O2SAT 98
[2025-06-02 05:16] LABS: Hematocrit 37.5 % (37.0-47.0); Hemoglobin 12.4 g/dL (12.0-15.0); Immature Granulocyte Percent A 0.3 % (0-0.5); Lymphocytes Absolute Auto 2.34 K/mm3 (0.9-3.2); Mean Corpuscular HGB Conc 33.1 g/dl (32-36); Mean Corpuscular Hemoglobin 31.1 pg (26-34); Mean Corpuscular Volume 94.0 fl (80-100); Nucleated Red Blood Cells Absolute Auto 0.000 K/mm3 (0.0-0.012); Nucleated Red Blood Cells Perc 0.0 % (0.0-0.2); Platelet Count Result 288 k/mm3 (150-375); Red Blood Count 3.99 M/mm3 (4.2-5.4); White Blood Count 7.6 K/mm3 (4.5-10.0)
[2025-06-02 05:36] LABS: Anion Gap 7 mmol/L (4-12); Blood Urea Nitrogen 7 mg/dL (7-17); Calcium 9.6 mg/dL (8.4-10.2); Carbon Dioxide 26 mmol/L (22-30); Chloride 96 mmol/L (98-107); Estimated CRCL calculation 64 ml/min; Estimated Glomerular Filt Rate > 60; Glucose 116 mg/dL (65-110); Potassium 4.2 mmol/L (3.4-5.0); Sodium 129 mmol/L (137-145)
[2025-06-02] MEDS: CHOLECALCIFEROL (VITAMIN D3) 25 MCG (1,000 UNITS) TABLET PO (08:30)
[2025-06-02] MEDS: SERTRALINE HCL 50 MG TABLET PO (08:30)
[2025-06-02] MEDS: CALCIUM CARBONATE (OSCAL) 500 MG TABLET PO (08:30)
[2025-06-02] MEDS: VALSARTAN 160 MG TABLET PO (08:30)
[2025-06-02] MEDS: CYANOCOBALAMIN 1,000 MCG TABLET 1000 MCG PO (08:30)
[2025-06-02] MEDS: POTASSIUM CHLORIDE 20 MEQ PACKET (FOR LIQUID) 40 MEQ PO ×2 (08:30→16:14)
[2025-06-02] MEDS: SODIUM CHLORIDE 1 GM TABLET 2 GM PO ×2 (08:30→16:13)
[2025-06-02] MEDS: FLUTICASONE/SALMETEROL 115-21 MCG INHALER 1 PUFF 2 PUFF INHALATION ×2 (08:36→20:19)
[2025-06-02 08:37] VITALS: O2SAT 98
--- NOTE | 2025-06-02 09:23 | P.PNIM_ITS ---
Progress Note: A&P Assessment and Plan (1) Hyponatremia: Code(s): E87.1 - Hypo-osmolality and hyponatremia Status: Acute Plan (1) Aggression: Code(s): R46.89 - Other symptoms and signs involving appearance and behavior Status: Acute Assessment and Plan: Patient calm, alert, but not oriented Hyponatremia: Code(s): E87.1 - Hypo-osmolality and hyponatremia Status: Acute Assessment and Plan: * Sodium is low at 128. RECEIVED Normal Saline is initiated at 75 ml/h, sodium 131 today on the baseline Discontinue normal saline IV on sodium chloride 1 g t.i.d.. p.o.. Increase sodium to 2 g b.i.d. p.o. 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 p.o. Recheck in AM. Corrected 4) Diabetes mellitus: Code(s): E11.9 - Type 2 diabetes mellitus without complications Status: Chronic Assessment and Plan: Hold oral and thickness medication Continue low-dose sliding scale Diabetes control in the target range .(5) Essential (primary) hypertension: Code(s): I10 - Essential (primary) hypertension Status: Chronic Assessment and Plan: * Continue home medications as there seems to be good control of BP.. * Continue to monitor BP. Hyperlipidemia: Qualifiers: Hyperlipidemia type: unspecified Qualified Code(s): E78.5 - Hyperlipidemia, unspecified Code(s): E78.5 - Hyperlipidemia, unspecified Status: Chronic Assessment and Plan: Continue statin therapy [facility] Subjective Date/time seen: 06/02/25 09:23 Interval history: I saw exam patient today. Patient is alert, not oriented x3, patient has no complaints, has no obvious di stress, patient cannot provide reliable history, Patient has no nausea vomiting diarrhea per nurse report Sodium is trending up slightly Exam Narrative: GENERAL: Pleasant, in no acute distress. Well-nourished. - EYES: EOMI. Anicteric. - HENT: Moist mucous membranes. - LUNGS: Clear to auscultation bilateral ly, no wheezing, rhonchi, or rales. - CARDIOVASCULAR: Regular rate and rhyth m. No murmur. No JVD. - ABDOMEN: Soft, non-tender and non-dist ended. No palpable masses. - EXTREMITIES: No edema. Peripheral puls es 2+. Non-tender. - NEUROLOGIC: No focal neurological defi cits. CN II-XII grossly intact. - PSYCHIATRIC: Awake, Alert and not orie nted x 3. Appropriate mood and affect. - SKIN: No rashes or lesions. Warm. - LYMPH: No cervical lymphadenopathy. Objective Data Vital Signs Vital Signs: Vital Signs - 24 hr 06/01/25 14:00 06/01/25 20:12 06/01/25 20:16 Temperature 97.6 F Pulse Rate 79 68 67 Respiratory Rate 16 20 20 Blood Pressure 150/83 H Pulse Oximetry 99 97 Oxygen Delivery Room Air Fraction of Inspired Oxygen 21 06/01/25 20:45 06/01/25 20:55 06/02/25 05:00 Temperature 97.7 F 97.5 F L Pulse Rate 66 79 Respiratory Rate 17 17 Blood Pressure 163/77 H 158/85 H Pulse Oximetry 99 98 Oxygen Delivery Room Air Fraction of Inspired Oxygen 06/02/25 08:37 Temperature Pulse Rate Respiratory Rate Blood Pressure Pulse Oximetry 98 Oxygen Delivery Fraction of Inspired Oxygen Intake/Output Intake/Output: Intake & Output 05/30/25 05/31/25 06/01/25 06/02/25 23:59 23:59 23:59 23:59 Intake Total 1420 2600 2600 150 Output Total 1400 Balance 1420 2600 1200 150 Meds/Results Medications: Active Medications Generic Name Dose Route Start Last Admin Trade Name Freq PRN Reason Stop Dose Admin Acetaminophen 500 mg 05/30/25 07:05 05/31/25 09:21 Acetaminophen 500 Mg Tablet PO 500 mg Q6H PRN Administration fever or pain Albuterol 2 puff 05/30/25 07:05 Albuterol Sulfate (*Sp) Aerosol 1 Puff INHALATION QID PRN Dyspnea Buspirone HCl 10 mg 05/30/25 09:00 06/02/25 08:30 Buspirone Hcl 10 Mg Tablet PO 10 mg TID GORDO Administration Calcium Carbonate 500 mg 05/30/25 09:00 06/02/25 08:30 Calcium Carbonate (Oscal) 500 Mg Tablet PO 500 mg DAILY GORDO Administration Cyanocobalamin 1,000 mcg 05/30/25 09:00 06/02/25 08:30 Cyanocobalamin 1,000 Mcg Tablet PO 1,000 mcg QAM GORDO Administration Dextrose 12.5 gm 05/30/25 12:49 Dextrose 50% 25 Gm/50 Ml Syringe IV PUSH PRN PRN Hypoglycemia Protocol Glucagon 1 mg 05/30/25 12:49 Glucagon For Inj 1 Mg Vial IM PRN PRN Hypoglycemia Protocol Glucose 15 gm 05/30/25 12:49 Glucose Oral Gel 15 Gm Of Glucse In 37.5 Gm Tube PO PRN PRN Hypoglycemia Protocol Sodium Chloride 1,000 mls @ 75 mls/hr 05/30/25 07:10 06/01/25 18:46 Normal Saline Iv IV CONT 75 mls/hr .[id number] GORDO Administration Dextrose 1,000 mls @ 100 mls/hr 05/30/25 12:49 Dextrose 5% 1,000 Ml IVPB PRN PRN Hypoglycemia Protocol Insulin Aspart 2 - 5 units 05/30/25 17:00 06/02/25 08:30 Insulin Aspart (*Bkc) 100 Units/Ml SUB-Q Not Given TIDWM GORDO Protocol Insulin Aspart 1 - 2 units 05/30/25 21:00 06/01/25 20:48 Insulin Aspart (*Bkc) 100 Units/Ml SUB-Q Not Given HS GORDO Protocol Loratadine 10 mg 05/30/25 07:13 Loratadine 10 Mg Tablet PO DAILY PRN allergy symptoms Melatonin 3 mg 05/30/25 21:00 06/01/25 20:52 Melatonin 3 Mg Tablet PO 3 mg QHS GORDO Administration Potassium Chloride 40 meq 05/31/25 17:00 06/02/25 08:30 Potassium Chloride 20 Meq Packet (For Liquid) PO 40 meq BID GORDO Administration Pravastatin Sodium 20 mg 05/30/25 21:00 06/01/25 20:52 Pravastatin Sodium 20 Mg Tablet BY MOUTH 20 mg QHS GORDO Administration Fluticasone/Salmeterol 2 puff 05/30/25 08:00 06/02/25 08:36 Fluticasone/Salmeterol 115-21 Mcg Inhaler 1 Puff INHALATION 2 puff Q12HRT GORDO Administration Sertraline HCl 50 mg 05/30/25 09:00 06/02/25 08:30 Sertraline Hcl 50 Mg Tablet PO 50 mg DAILY OGRDO Administration Sodium Chloride 2 gm 06/01/25 17:00 06/02/25 08:30 Sodium Chloride 1 Gm Tablet PO 2 gm BID GORDO Administration Valsartan 160 mg 05/30/25 09:00 06/02/25 08:30 Valsartan 160 Mg Tablet PO 160 mg DAILY GORDO Administration Vitamin D 25 mcg 05/30/25 09:00 06/02/25 08:30 Cholecalciferol (Vitamin D3) 25 Mcg (1,000 Units) Tablet PO 25 mcg DAILY GORDO Administration Radiology Results: ITS Impressions Chest X-Ray 05/29/25 12:45 IMPRESSION: Chronic interstitial lung disease, without focal infiltrate or effusion. Labs Labs: Laboratory Results - last 24 hr 05/30/25 06/01/25 06/01/25 13:06 10:23 12:38 WBC 6.7 RBC 3.79 L Hgb 11.9 L Hct 35.5 L MCV 93.7 MCH 31.4 MCHC 33.5 RDW 13.2 Plt Count 261 MPV 8.6 Immature Gran % (Auto) 0.3 Neut % (Auto) 65.5 Lymph % (Auto) 26.2 Boundary % (Auto) 6.8 Eos % (Auto) 0.9 Baso % (Auto) 0.3 Lymph # (Auto) 1.76 Boundary # (Auto) 0.5 Eos # (Auto) 0.1 Baso # (Auto) 0.0 Abs Immat Gran (auto) 0.02 Absolute Neuts (auto) 4.4 Absolute Nucleated RBC 0.000 Nucleated RBC % 0.0 Sodium 128 L Potassium 4.5 Chloride 95 L Carbon Dioxide 29 Anion Gap 4 BUN 8 Creatinine 0.59 L Estim Creat Clear Calc 56 Estimated GFR > 60 Glucose 144 H POC Capillary Glucose 129 H Serum Osmolality 266 L Calcium 9.5 06/01/25 06/01/25 06/02/25 16:54 20:48 04:38 WBC 7.6 RBC 3.99 L Hgb 12.4 Hct 37.5 MCV 94.0 MCH 31.1 MCHC 33.1 RDW 12.9 Plt Count 288 MPV 8.9 Immature Gran % (Auto) 0.3 Neut % (Auto) 58.2 Lymph % (Auto) 31.0 Boundary % (Auto) 8.1 Eos % (Auto) 2.0 Baso % (Auto) 0.4 Lymph # (Auto) 2.34 Boundary # (Auto) 0.6 Eos # (Auto) 0.2 Baso # (Auto) 0.0 Abs Immat Gran (auto) 0.02 Absolute Neuts (auto) 4.4 Absolute Nucleated RBC 0.000 Nucleated RBC % 0.0 Sodium 129 L Potassium 4.2 Chloride 96 L Carbon Dioxide 26 Anion Gap 7 BUN 7 Creatinine 0.51 L Estim Creat Clear Calc 64 Estimated GFR > 60 Glucose 116 H POC Capillary Glucose 129 H 121 H Serum Osmolality Calcium 9.6 06/02/25 08:37 WBC RBC Hgb Hct MCV MCH MCHC RDW Plt Count MPV Immature Gran % (Auto) Neut % (Auto) Lymph % (Auto) Boundary % (Auto) Eos % (Auto) Baso % (Auto) Lymph # (Auto) Boundary # (Auto) Eos # (Auto) Baso # (Auto) Abs Immat Gran (auto) Absolute Neuts (auto) Absolute Nucleated RBC Nucleated RBC % Sodium Potassium Chloride Carbon Dioxide Anion Gap BUN Creatinine Estim Creat Clear Calc Estimated GFR Glucose POC Capillary Glucose 130 H Serum Osmolality Calcium
[2025-06-02 14:00] VITALS: BP 138/79; PULSE 85; RESP 16; TEMP 36.6; O2SAT 98
[2025-06-02 20:22] VITALS: O2SAT 97
[2025-06-02] MEDS: PRAVASTATIN SODIUM 20 MG TABLET BY MOUTH (21:04)
[2025-06-02] MEDS: MELATONIN 3 MG TABLET PO (21:28)
[2025-06-02] MEDS: ACETAMINOPHEN 500 MG TABLET PO (21:28)
[2025-06-02 21:47] VITALS: BP 152/80; PULSE 79; RESP 18; TEMP 36.4; O2SAT 97
[2025-06-03 04:35] VITALS: BP 138/57; PULSE 64; RESP 20; TEMP 36.1; O2SAT 95
[2025-06-03 07:40] VITALS: O2SAT 95
[2025-06-03] MEDS: FLUTICASONE/SALMETEROL 115-21 MCG INHALER 1 PUFF 2 PUFF INHALATION ×2 (07:40→20:35)
[2025-06-03] MEDS: POTASSIUM CHLORIDE 20 MEQ PACKET (FOR LIQUID) 40 MEQ PO (08:21)
[2025-06-03] MEDS: SODIUM CHLORIDE 1 GM TABLET 2 GM PO ×2 (08:22→17:01)
[2025-06-03] MEDS: VALSARTAN 160 MG TABLET PO (08:22)
[2025-06-03] MEDS: SERTRALINE HCL 50 MG TABLET PO (08:22)
[2025-06-03] MEDS: CHOLECALCIFEROL (VITAMIN D3) 25 MCG (1,000 UNITS) TABLET PO (08:22)
[2025-06-03] MEDS: CALCIUM CARBONATE (OSCAL) 500 MG TABLET PO (08:23)
[2025-06-03] MEDS: CYANOCOBALAMIN 1,000 MCG TABLET 1000 MCG PO (08:23)
[2025-06-03 09:11] LABS: Hematocrit 36.2 % (37.0-47.0); Hemoglobin 12.2 g/dL (12.0-15.0); Immature Granulocyte Percent A 0.1 % (0-0.5); Lymphocytes Absolute Auto 2.14 K/mm3 (0.9-3.2); Mean Corpuscular HGB Conc 33.7 g/dl (32-36); Mean Corpuscular Hemoglobin 31.4 pg (26-34); Mean Corpuscular Volume 93.1 fl (80-100); Nucleated Red Blood Cells Absolute Auto 0.000 K/mm3 (0.0-0.012); Nucleated Red Blood Cells Perc 0.0 % (0.0-0.2); Platelet Count Result 269 k/mm3 (150-375); Red Blood Count 3.89 M/mm3 (4.2-5.4); White Blood Count 6.9 K/mm3 (4.5-10.0)
[2025-06-03 09:23] LABS: Anion Gap 7 mmol/L (4-12); Blood Urea Nitrogen 17 mg/dL (7-17); Calcium 10.0 mg/dL (8.4-10.2); Carbon Dioxide 28 mmol/L (22-30); Chloride 96 mmol/L (98-107); Estimated CRCL calculation 54 ml/min; Estimated Glomerular Filt Rate > 60; Glucose 156 mg/dL (65-110); Potassium 5.3 mmol/L (3.4-5.0); Sodium 131 mmol/L (137-145)
--- NOTE | 2025-06-03 09:44 | P.PNIM_ITS ---
Progress Note: A&P Assessment and Plan (1) Hyponatremia: Code(s): E87.1 - Hypo-osmolality and hyponatremia Status: Acute Plan (1) Aggression: Code(s): R46.89 - Other symptoms and signs involving appearance and behavior Status: Acute Assessment and Plan: Patient calm, alert, but not oriented Hyponatremia: Code(s): E87.1 - Hypo-osmolality and hyponatremia Status: Acute Assessment and Plan: * Sodium is low at 128. RECEIVED Normal Saline is initiated at 75 ml/h, sodium 131 today on the baseline Discontinue normal saline IV on sodium chloride 1 g t.i.d.. p.o.. Increase sodium to 2 g b.i.d. p.o. 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 p.o. Recheck in AM. Corrected 4) Diabetes mellitus: Code(s): E11.9 - Type 2 diabetes mellitus without complications Status: Chronic Assessment and Plan: Hold oral and thickness medication Continue low-dose sliding scale Diabetes control in the target range .(5) Essential (primary) hypertension: Code(s): I10 - Essential (primary) hypertension Status: Chronic Assessment and Plan: * Continue home medications as there seems to be good control of BP.. * Continue to monitor BP. Hyperlipidemia: Qualifiers: Hyperlipidemia type: unspecified Qualified Code(s): E78.5 - Hyperlipidemia, unspecified Code(s): E78.5 - Hyperlipidemia, unspecified Status: Chronic Assessment and Plan: Continue statin therapy Discharge patient to [facility] when electrolyte abnormality is corrected tomorrow Subjective Date/time seen: 06/03/25 09:44 Interval history: I saw exam patient today. Patient has no new issue overnight patient cannot provide reliable history, alert but not oriented x3, Patient has no nausea vomiting diarrhea per nurse report Sodium is trending up slightly Exam Narrative: GENERAL: Pleasant, in no acute distress. Well-nourished. - EYES: EOMI. Anicteric. - HENT: Moist mucous membranes. - LUNGS: Clear to auscultation bilateral ly, no wheezing, rhonchi, or rales. - CARDIOVASCULAR: Regular rate and rhyth m. No murmur. No JVD. - ABDOMEN: Soft, non-tender and non-dist ended. No palpable masses. - EXTREMITIES: No edema. Peripheral puls es 2+. Non-tender. - NEUROLOGIC: No focal neurological defi cits. CN II-XII grossly intact. - PSYCHIATRIC: Awake, Alert and not orie nted x 3. Appropriate mood and affect. - SKIN: No rashes or lesions. Warm. - LYMPH: No cervical lymphadenopathy. Objective Data Vital Signs Vital Signs: Vital Signs - 24 hr 06/02/25 14:00 06/02/25 20:00 06/02/25 20:22 Temperature 98 F Pulse Rate 85 Respiratory Rate 16 Blood Pressure 138/79 Pulse Oximetry 98 97 Oxygen Delivery Room Air 06/02/25 21:47 06/03/25 04:35 06/03/25 07:40 Temperature 97.6 F 97 F L Pulse Rate 79 64 Respiratory Rate 18 20 Blood Pressure 152/80 H 138/57 L Pulse Oximetry 97 95 95 Oxygen Delivery Room Air 06/03/25 08:20 Temperature Pulse Rate Respiratory Rate Blood Pressure Pulse Oximetry Oxygen Delivery Room Air Intake/Output Intake/Output: Intake & Output 05/31/25 06/01/25 06/02/25 06/03/25 23:59 23:59 23:59 23:59 Intake Total 2600 2600 870 100 Output Total 1400 100 Balance 2600 1200 770 100 Meds/Results Medications: Active Medications Generic Name Dose Route Start Last Admin Trade Name Freq PRN Reason Stop Dose Admin Acetaminophen 500 mg 05/30/25 07:05 06/02/25 21:28 Acetaminophen 500 Mg Tablet PO 500 mg Q6H PRN Administration fever or pain Albuterol 2 puff 05/30/25 07:05 Albuterol Sulfate (*Sp) Aerosol 1 Puff INHALATION QID PRN Dyspnea Buspirone HCl 10 mg 05/30/25 09:00 06/03/25 08:23 Buspirone Hcl 10 Mg Tablet PO 10 mg TID GORDO Administration Calcium Carbonate 500 mg 05/30/25 09:00 06/03/25 08:23 Calcium Carbonate (Oscal) 500 Mg Tablet PO 500 mg DAILY GORDO Administration Cyanocobalamin 1,000 mcg 05/30/25 09:00 06/03/25 08:23 Cyanocobalamin 1,000 Mcg Tablet PO 1,000 mcg QAM GORDO Administration Dextrose 12.5 gm 05/30/25 12:49 Dextrose 50% 25 Gm/50 Ml Syringe IV PUSH PRN PRN Hypoglycemia Protocol Glucagon 1 mg 05/30/25 12:49 Glucagon For Inj 1 Mg Vial IM PRN PRN Hypoglycemia Protocol Glucose 15 gm 05/30/25 12:49 Glucose Oral Gel 15 Gm Of Glucse In 37.5 Gm Tube PO PRN PRN Hypoglycemia Protocol Dextrose 1,000 mls @ 100 mls/hr 05/30/25 12:49 Dextrose 5% 1,000 Ml IVPB PRN PRN Hypoglycemia Protocol Insulin Aspart 2 - 5 units 05/30/25 17:00 06/03/25 08:00 Insulin Aspart (*Bkc) 100 Units/Ml SUB-Q Not Given TIDWM GORDO Protocol Insulin Aspart 1 - 2 units 05/30/25 21:00 06/02/25 21:00 Insulin Aspart (*Bkc) 100 Units/Ml SUB-Q Not Given HS GORDO Protocol Loratadine 10 mg 05/30/25 07:13 Loratadine 10 Mg Tablet PO DAILY PRN allergy symptoms Melatonin 3 mg 05/30/25 21:00 06/02/25 21:28 Melatonin 3 Mg Tablet PO 3 mg QHS GORDO Administration Potassium Chloride 40 meq 05/31/25 17:00 06/03/25 08:21 Potassium Chloride 20 Meq Packet (For Liquid) PO 40 meq BID GORDO Administration Pravastatin Sodium 20 mg 05/30/25 21:00 06/02/25 21:04 Pravastatin Sodium 20 Mg Tablet BY MOUTH 20 mg QHS GORDO Administration Fluticasone/Salmeterol 2 puff 05/30/25 08:00 06/03/25 07:40 Fluticasone/Salmeterol 115-21 Mcg Inhaler 1 Puff INHALATION 2 puff Q12HRT GORDO Administration Sertraline HCl 50 mg 05/30/25 09:00 06/03/25 08:22 Sertraline Hcl 50 Mg Tablet PO 50 mg DAILY GORDO Administration Sodium Chloride 2 gm 06/01/25 17:00 06/03/25 08:22 Sodium Chloride 1 Gm Tablet PO 2 gm BID GORDO Administration Valsartan 160 mg 05/30/25 09:00 06/03/25 08:22 Valsartan 160 Mg Tablet PO 160 mg DAILY GORDO Administration Vitamin D 25 mcg 05/30/25 09:00 06/03/25 08:22 Cholecalciferol (Vitamin D3) 25 Mcg (1,000 Units) Tablet PO 25 mcg DAILY GORDO Administration Radiology Results: ITS Impressions Chest X-Ray 05/29/25 12:45 IMPRESSION: Chronic interstitial lung disease, without focal infiltrate or effusion. Labs Labs: Laboratory Results - last 24 hr 06/02/25 06/02/25 06/02/25 12:01 16:54 20:50 WBC RBC Hgb Hct MCV MCH MCHC RDW Plt Count MPV Immature Gran % (Auto) Neut % (Auto) Lymph % (Auto) Schley % (Auto) Eos % (Auto) Baso % (Auto) Lymph # (Auto) [place] # (Auto) Eos # (Auto) Baso # (Auto) Abs Immat Gran (auto) Absolute Neuts (auto) Absolute Nucleated RBC Nucleated RBC % Sodium Potassium Chloride Carbon Dioxide Anion Gap BUN Creatinine Estim Creat Clear Calc Estimated GFR Glucose POC Capillary Glucose 167 H 162 H 160 H Calcium 06/03/25 06/03/25 07:51 08:48 WBC 6.9 RBC 3.89 L Hgb 12.2 Hct 36.2 L MCV 93.1 MCH 31.4 MCHC 33.7 RDW 13.0 Plt Count 269 MPV 8.8 Immature Gran % (Auto) 0.1 Neut % (Auto) 58.9 Lymph % (Auto) 31.1 [place] % (Auto) 7.3 Eos % (Auto) 2.2 Baso % (Auto) 0.4 Lymph # (Auto) 2.14 [place] # (Auto) 0.5 Eos # (Auto) 0.2 Baso # (Auto) 0.0 Abs Immat Gran (auto) 0.01 Absolute Neuts (auto) 4.1 Absolute Nucleated RBC 0.000 Nucleated RBC % 0.0 Sodium 131 L Potassium 5.3 H Chloride 96 L Carbon Dioxide 28 Anion Gap 7 BUN 17 D Creatinine 0.62 L Estim Creat Clear Calc 54 Estimated GFR > 60 Glucose 156 H POC Capillary Glucose 126 H Calcium 10.0
[2025-06-03 14:00] VITALS: BP 125/77; PULSE 77; RESP 16; TEMP 36.4; O2SAT 93
[2025-06-03 20:35] VITALS: PULSE 65; O2SAT 98
[2025-06-03 20:38] VITALS: BP 149/80; PULSE 69; RESP 16; TEMP 36.4; O2SAT 100
[2025-06-03] MEDS: ACETAMINOPHEN 500 MG TABLET PO (21:01)
[2025-06-03] MEDS: PRAVASTATIN SODIUM 20 MG TABLET BY MOUTH (21:01)
[2025-06-03] MEDS: MELATONIN 3 MG TABLET PO (21:04)
[2025-06-04 04:20] VITALS: BP 127/82; PULSE 65; RESP 18; TEMP 36.4; O2SAT 99
[2025-06-04] MEDS: FLUTICASONE/SALMETEROL 115-21 MCG INHALER 1 PUFF 2 PUFF INHALATION ×2 (08:05→20:41)
[2025-06-04 08:09] VITALS: O2SAT 96
[2025-06-04 08:18] LABS: Anion Gap 5 mmol/L (4-12); Blood Urea Nitrogen 13 mg/dL (7-17); Calcium 9.6 mg/dL (8.4-10.2); Carbon Dioxide 29 mmol/L (22-30); Chloride 94 mmol/L (98-107); Estimated CRCL calculation 60 ml/min; Estimated Glomerular Filt Rate > 60; Glucose 135 mg/dL (65-110); Potassium 4.2 mmol/L (3.4-5.0); Sodium 128 mmol/L (137-145)
[2025-06-04] MEDS: SODIUM CHLORIDE 1 GM TABLET 2 GM PO ×2 (08:52→17:30)
[2025-06-04] MEDS: VALSARTAN 160 MG TABLET PO (08:52)
[2025-06-04] MEDS: CYANOCOBALAMIN 1,000 MCG TABLET 1000 MCG PO (08:52)
[2025-06-04] MEDS: CHOLECALCIFEROL (VITAMIN D3) 25 MCG (1,000 UNITS) TABLET PO (08:52)
[2025-06-04] MEDS: SERTRALINE HCL 50 MG TABLET PO (08:52)
[2025-06-04] MEDS: CALCIUM CARBONATE (OSCAL) 500 MG TABLET PO (08:52)
--- NOTE | 2025-06-04 12:44 | P.PNIM_ITS ---
Progress Note: A&P Assessment and Plan (1) Dementia: Qualifiers: Dementia type: unspecified type Dementia severity: unspecified severity Dementia behavioral or psychological symptom: unspecified whether behavioral, psychotic, or mood disturbance or anxiety Qualified Code(s): F03.90 - Unspecified dementia, unspecified severity, without behavioral disturbance, psychotic disturbance, mood disturbance, and anxiety Code(s): F03.90 - Unspecified dementia, unspecified severity, without behavioral disturbance, psychotic disturbance, mood disturbance, and anxiety Status: Acute (2) Hyponatremia: Code(s): E87.1 - Hypo-osmolality and hyponatremia Status: Acute Plan 85-year-old female with history of dementia. She used to live at senior living but was taken out to live at home. She was brought in to [facility] ER on 05/29/2025 with increasing aggression. She remains pleasantly confused and calm now. Continue BuSpar 10 mg p.o. t.i.d., melatonin 3 mg p.o. q.h.s., sertraline 50 mg p.o. q.day. Started on sodium chloride 2 g p.o. b.i.d. for hyponatremia. Stable, continue to monitor. [id number] diabetes mellitus: Accu-Cheks a.c. HS. Full code. Saline lock IV. Lovenox 40 mg subQ q.day. Subjective Date/time seen: 06/04/25 12:44 Interval history: No major acute overnight events. Patient denies any complaints. Review of Systems Review of Systems: All systems reviewed & are unremarkable except as noted in HPI and below (Subjective) Exam Const: General: comfortable and no acute distress Other: Pleasantly confused HENMT: Mouth: Yes moist mucous membranes Neck: Neck: supple Resp: Effort & Inspection: normal respiratory effort Auscultation: clear to auscultation bilaterally Cardio: Rate: regular rate Rhythm: regular rhythm GI: Inspection: non-distended GI Palp: Yes Soft to palpation Extrem: General: no edema Objective Data Vital Signs Vital Signs: Vital Signs - 24 hr 06/03/25 14:00 06/03/25 20:00 06/03/25 20:35 Temperature 97.6 F Pulse Rate 77 65 Respiratory Rate 16 Blood Pressure 125/77 Pulse Oximetry 93 98 Oxygen Delivery Room Air Room Air 06/03/25 20:38 06/04/25 04:20 06/04/25 08:00 Temperature 97.6 F 97.5 F L Pulse Rate 69 65 Respiratory Rate 16 18 Blood Pressure 149/80 H 127/82 Pulse Oximetry 100 99 Oxygen Delivery Room Air 06/04/25 08:09 Temperature Pulse Rate Respiratory Rate Blood Pressure Pulse Oximetry 96 Oxygen Delivery Room Air Intake/Output Intake/Output: Intake & Output 06/01/25 06/02/25 06/03/25 06/04/25 23:59 23:59 23:59 23:59 Intake Total 2600 870 340 360 Output Total 1400 100 600 600 Balance 1200 060 -260 240 Meds/Results Medications: Active Medications Generic Name Dose Route Start Last Admin Trade Name Freq PRN Reason Stop Dose Admin Acetaminophen 500 mg 05/30/25 07:05 06/03/25 21:01 Acetaminophen 500 Mg Tablet PO 500 mg Q6H PRN Administration fever or pain Albuterol 2 puff 05/30/25 07:05 Albuterol Sulfate (*Sp) Aerosol 1 Puff INHALATION QID PRN Dyspnea Buspirone HCl 10 mg 05/30/25 09:00 06/04/25 12:40 Buspirone Hcl 10 Mg Tablet PO 10 mg TID GORDO Administration Calcium Carbonate 500 mg 05/30/25 09:00 06/04/25 08:52 Calcium Carbonate (Oscal) 500 Mg Tablet PO 500 mg DAILY GORDO Administration Cyanocobalamin 1,000 mcg 05/30/25 09:00 06/04/25 08:52 Cyanocobalamin 1,000 Mcg Tablet PO 1,000 mcg QAM GORDO Administration Dextrose 12.5 gm 05/30/25 12:49 Dextrose 50% 25 Gm/50 Ml Syringe IV PUSH PRN PRN Hypoglycemia Protocol Glucagon 1 mg 05/30/25 12:49 Glucagon For Inj 1 Mg Vial IM PRN PRN Hypoglycemia Protocol Glucose 15 gm 05/30/25 12:49 Glucose Oral Gel 15 Gm Of Glucse In 37.5 Gm Tube PO PRN PRN Hypoglycemia Protocol Dextrose 1,000 mls @ 100 mls/hr 05/30/25 12:49 Dextrose 5% 1,000 Ml IVPB PRN PRN Hypoglycemia Protocol Insulin Aspart 2 - 5 units 05/30/25 17:00 06/04/25 11:46 Insulin Aspart (*Bkc) 100 Units/Ml SUB-Q Not Given TIDWM [facility] Protocol Insulin Aspart 1 - 2 units 05/30/25 21:00 06/03/25 21:00 Insulin Aspart (*Bkc) 100 Units/Ml SUB-Q Not Given HS [facility] Protocol Loratadine 10 mg 05/30/25 07:13 Loratadine 10 Mg Tablet PO DAILY PRN allergy symptoms Melatonin 3 mg 05/30/25 21:00 06/03/25 21:04 Melatonin 3 Mg Tablet PO 3 mg QHS GORDO Administration Potassium Chloride 40 meq 05/31/25 17:00 06/04/25 09:00 Potassium Chloride 20 Meq Packet (For Liquid) PO Not Given BID GORDO Pravastatin Sodium 20 mg 05/30/25 21:00 06/03/25 21:01 Pravastatin Sodium 20 Mg Tablet BY MOUTH 20 mg QHS GORDO Administration Fluticasone/Salmeterol 2 puff 05/30/25 08:00 06/04/25 08:05 Fluticasone/Salmeterol 115-21 Mcg Inhaler 1 Puff INHALATION 2 puff Q12HRT GORDO Administration Sertraline HCl 50 mg 05/30/25 09:00 06/04/25 08:52 Sertraline Hcl 50 Mg Tablet PO 50 mg DAILY GORDO Administration Sodium Chloride 2 gm 06/01/25 17:00 06/04/25 08:52 Sodium Chloride 1 Gm Tablet PO 2 gm BID GORDO Administration Valsartan 160 mg 05/30/25 09:00 06/04/25 08:52 Valsartan 160 Mg Tablet PO 160 mg DAILY GORDO Administration Vitamin D 25 mcg 05/30/25 09:00 06/04/25 08:52 Cholecalciferol (Vitamin D3) 25 Mcg (1,000 Units) Tablet PO 25 mcg DAILY GORDO Administration Radiology Results: ITS Impressions Chest X-Ray 05/29/25 12:45 IMPRESSION: Chronic interstitial lung disease, without focal infiltrate or effusion. Labs Labs: Laboratory Results - last 24 hr 06/03/25 06/03/25 06/04/25 16:55 20:42 07:40 Sodium Potassium Chloride Carbon Dioxide Anion Gap BUN Creatinine Estim Creat Clear Calc Estimated GFR Glucose POC Capillary Glucose 120 H 124 H 140 H Calcium 06/04/25 06/04/25 08:01 11:34 Sodium 128 L Potassium 4.2 Chloride 94 L Carbon Dioxide 29 Anion Gap 5 BUN 13 Creatinine 0.55 L Estim Creat Clear Calc 60 Estimated GFR > 60 Glucose 135 H POC Capillary Glucose 126 H Calcium 9.6
[2025-06-04] MEDS: ENOXAPARIN 40 MG/0.4 ML SYRINGE SUB-Q (13:41)
[2025-06-04 14:00] VITALS: BP 146/90; PULSE 80; RESP 16; TEMP 36.4; O2SAT 100
[2025-06-04] MEDS: PRAVASTATIN SODIUM 20 MG TABLET BY MOUTH (20:52)
[2025-06-04] MEDS: MELATONIN 3 MG TABLET PO (20:52)
[2025-06-04 21:18] VITALS: BP 140/86; PULSE 80; RESP 16; TEMP 36.6; O2SAT 99
[2025-06-05 04:51] VITALS: BP 154/74; PULSE 70; RESP 18; TEMP 36.4; O2SAT 99
[2025-06-05 05:47] LABS: Anion Gap 8 mmol/L (4-12); Blood Urea Nitrogen 12 mg/dL (7-17); Calcium 9.9 mg/dL (8.4-10.2); Carbon Dioxide 28 mmol/L (22-30); Chloride 93 mmol/L (98-107); Estimated CRCL calculation 54 ml/min; Estimated Glomerular Filt Rate > 60; Glucose 129 mg/dL (65-110); Potassium 4.0 mmol/L (3.4-5.0); Sodium 129 mmol/L (137-145)
[2025-06-05] MEDS: FLUTICASONE/SALMETEROL 115-21 MCG INHALER 1 PUFF 2 PUFF INHALATION ×2 (07:39→20:17)
[2025-06-05 07:40] VITALS: PULSE 78; RESP 20; O2SAT 98
[2025-06-05] MEDS: ENOXAPARIN 40 MG/0.4 ML SYRINGE SUB-Q (08:55)
[2025-06-05] MEDS: CYANOCOBALAMIN 1,000 MCG TABLET 1000 MCG PO (08:55)
[2025-06-05] MEDS: SERTRALINE HCL 50 MG TABLET PO (08:55)
[2025-06-05] MEDS: CHOLECALCIFEROL (VITAMIN D3) 25 MCG (1,000 UNITS) TABLET PO (08:55)
[2025-06-05] MEDS: SODIUM CHLORIDE 1 GM TABLET 2 GM PO ×2 (08:55→17:24)
[2025-06-05] MEDS: CALCIUM CARBONATE (OSCAL) 500 MG TABLET PO (08:55)
[2025-06-05] MEDS: VALSARTAN 160 MG TABLET PO (08:55)
[2025-06-05 10:08] LABS: Osmolality, Urine 583 mOsmol/kg (.)
--- NOTE | 2025-06-05 10:44 | PCNWS ---
Weekly nutritional screen. Patient is tolerating current diet with adequate intake. No weight loss reported. No nutritional needs at this time.
--- NOTE | 2025-06-05 12:41 | PM.IMPN ---
Progress Note: A&P Assessment and Plan (1) Dementia: Qualifiers: Dementia type: unspecified type Dementia severity: unspecified severity Dementia behavioral or psychological symptom: unspecified whether behavioral, psychotic, or mood disturbance or anxiety Qualified Code(s): F03.90 - Unspecified dementia, unspecified severity, without behavioral disturbance, psychotic disturbance, mood disturbance, and anxiety Code(s): F03.90 - Unspecified dementia, unspecified severity, without behavioral disturbance, psychotic disturbance, mood disturbance, and anxiety Status: Acute (2) Hyponatremia: Code(s): E87.1 - Hypo-osmolality and hyponatremia Status: Acute Plan 85-year-old female with history of dementia. She used to live at shelter but was taken out to live at home. She was brought in to [facility] ER on 05/29/2025 with increasing aggression. She remains pleasantly confused and calm now. Continue BuSpar 10 mg p.o. t.i.d., melatonin 3 mg p.o. q.h.s., sertraline 50 mg p.o. q.day. Started on sodium chloride 2 g p.o. b.i.d. for hyponatremia. Stable, continue to monitor periodically. [id number] diabetes mellitus: Accu-Cheks a.c. HS. Blood sugars at goal. Full code. Saline lock IV. Lovenox 40 mg subQ q.day. fall precautions, ambulate with assistance. Ready for discharge, coordination arranging. Subjective Date/time seen: 06/05/25 12:41 Interval history: No major acute overnight events. Patient has no complaints and rests comfortably. Review of Systems Review of Systems: All systems reviewed & are unremarkable except as noted in HPI and below (Subjective) Exam Const: General: comfortable and no acute distress HENMT: Mouth: Yes moist mucous membranes Eyes: Pupils: Equal, round and reactive pupils present Resp: Effort & Inspection: normal respiratory effort Auscultation: clear to auscultation bilaterally Cardio: Rate: regular rate Rhythm: regular rhythm GI: Inspection: non-distended GI Palp: Yes Soft to palpation Extrem: General: no edema Objective Data Vital Signs Vital Signs: Vital Signs - 24 hr 06/04/25 14:00 06/04/25 19:20 06/04/25 21:18 Temperature 97.5 F L 97.9 F Pulse Rate 80 80 Respiratory Rate 16 16 Blood Pressure 146/90 H 140/86 Pulse Oximetry 100 99 Oxygen Delivery Room Air Fraction of Inspired Oxygen 21 06/05/25 04:51 06/05/25 07:40 06/05/25 07:40 Temperature 97.6 F Pulse Rate 70 78 78 Respiratory Rate 18 20 20 Blood Pressure 154/74 H Pulse Oximetry 99 98 Oxygen Delivery Room Air Fraction of Inspired Oxygen 06/05/25 08:00 Temperature Pulse Rate Respiratory Rate Blood Pressure Pulse Oximetry Oxygen Delivery Room Air Fraction of Inspired Oxygen Intake/Output Intake/Output: Intake & Output 06/02/25 06/03/25 06/04/25 06/05/25 23:59 23:59 23:59 23:59 Intake Total 870 340 600 290 Output Total 971 809 6408 900 Balance 337 -121 -900 -610 Meds/Results Medications: Active Medications Generic Name Dose Route Start Last Admin Trade Name Freq PRN Reason Stop Dose Admin Acetaminophen 500 mg 05/30/25 07:05 06/03/25 21:01 Acetaminophen 500 Mg Tablet PO 500 mg Q6H PRN Administration fever or pain Albuterol 2 puff 05/30/25 07:05 Albuterol Sulfate (*Sp) Aerosol 1 Puff INHALATION QID PRN Dyspnea Buspirone HCl 10 mg 05/30/25 09:00 06/05/25 12:31 Buspirone Hcl 10 Mg Tablet PO 10 mg TID GORDO Administration Calcium Carbonate 500 mg 05/30/25 09:00 06/05/25 08:55 Calcium Carbonate (Oscal) 500 Mg Tablet PO 500 mg DAILY GORDO Administration Cyanocobalamin 1,000 mcg 05/30/25 09:00 06/05/25 08:55 Cyanocobalamin 1,000 Mcg Tablet PO 1,000 mcg QAM GORDO Administration Dextrose 12.5 gm 05/30/25 12:49 Dextrose 50% 25 Gm/50 Ml Syringe IV PUSH PRN PRN Hypoglycemia Protocol Enoxaparin Sodium 40 mg 06/04/25 12:55 06/05/25 08:55 Enoxaparin 40 Mg/0.4 Ml Syringe SUB-Q 40 mg DAILY GORDO Administration Glucagon 1 mg 05/30/25 12:49 Glucagon For Inj 1 Mg Vial IM PRN PRN Hypoglycemia Protocol Glucose 15 gm 05/30/25 12:49 Glucose Oral Gel 15 Gm Of Glucse In 37.5 Gm Tube PO PRN PRN Hypoglycemia Protocol Dextrose 1,000 mls @ 100 mls/hr 05/30/25 12:49 Dextrose 5% 1,000 Ml IVPB PRN PRN Hypoglycemia Protocol Insulin Aspart 2 - 5 units 05/30/25 17:00 06/05/25 12:30 Insulin Aspart (*Bkc) 100 Units/Ml SUB-Q Not Given TIDWM [facility] Protocol Insulin Aspart 1 - 2 units 05/30/25 21:00 06/04/25 20:51 Insulin Aspart (*Bkc) 100 Units/Ml SUB-Q Not Given HS [facility]ORD[facility] Protocol Loratadine 10 mg 05/30/25 07:13 Loratadine 10 Mg Tablet PO DAILY PRN allergy symptoms Melatonin 3 mg 05/30/25 21:00 06/04/25 20:52 Melatonin 3 Mg Tablet PO 3 mg QHS GORDO Administration Pravastatin Sodium 20 mg 05/30/25 21:00 06/04/25 20:52 Pravastatin Sodium 20 Mg Tablet BY MOUTH 20 mg QHS GORDO Administration Fluticasone/Salmeterol 2 puff 05/30/25 08:00 06/05/25 07:39 Fluticasone/Salmeterol 115-21 Mcg Inhaler 1 Puff INHALATION 2 puff Q12HRT GORDO Administration Sertraline HCl 50 mg 05/30/25 09:00 06/05/25 08:55 Sertraline Hcl 50 Mg Tablet PO 50 mg DAILY GORDO Administration Sodium Chloride 2 gm 06/01/25 17:00 06/05/25 08:55 Sodium Chloride 1 Gm Tablet PO 2 gm BID GORDO Administration Valsartan 160 mg 05/30/25 09:00 06/05/25 08:55 Valsartan 160 Mg Tablet PO 160 mg DAILY GORDO Administration Vitamin D 25 mcg 05/30/25 09:00 06/05/25 08:55 Cholecalciferol (Vitamin D3) 25 Mcg (1,000 Units) Tablet PO 25 mcg DAILY GORDO Administration Radiology Results: ITS Impressions Chest X-Ray 05/29/25 12:45 IMPRESSION: Chronic interstitial lung disease, without focal infiltrate or effusion. Labs Labs: Laboratory Results - last 24 hr 06/02/25 06/04/25 06/04/25 16:23 17:07 20:20 Sodium Potassium Chloride Carbon Dioxide Anion Gap BUN Creatinine Estim Creat Clear Calc Estimated GFR Glucose POC Capillary Glucose 120 H 155 H Calcium Urine Osmolality 583 06/05/25 06/05/25 06/05/25 04:38 07:41 11:43 Sodium 129 L Potassium 4.0 Chloride 93 L Carbon Dioxide 28 Anion Gap 8 BUN 12 Creatinine 0.62 L Estim Creat Clear Calc 54 Estimated GFR > 60 Glucose 129 H POC Capillary Glucose 131 H 136 H Calcium 9.9 Urine Osmolality
[2025-06-05 14:00] VITALS: BP 125/64; PULSE 84; RESP 14; TEMP 36.5; O2SAT 99
[2025-06-05 20:17] VITALS: O2SAT 99
[2025-06-05 20:18] VITALS: PULSE 75; RESP 18
[2025-06-05] MEDS: MELATONIN 3 MG TABLET PO (21:17)
[2025-06-05] MEDS: PRAVASTATIN SODIUM 20 MG TABLET BY MOUTH (21:17)
[2025-06-05 21:40] VITALS: BP 138/69; PULSE 75; RESP 20; TEMP 36.5; O2SAT 99
[2025-06-06 06:00] VITALS: BP 128/73; PULSE 73; RESP 16; TEMP 36.1; O2SAT 100
[2025-06-06] MEDS: FLUTICASONE/SALMETEROL 115-21 MCG INHALER 1 PUFF 2 PUFF INHALATION (08:25)
[2025-06-06 08:26] VITALS: PULSE 83; PULSE 88; RESP 20; O2SAT 93
[2025-06-06] MEDS: CYANOCOBALAMIN 1,000 MCG TABLET 1000 MCG PO (09:07)
[2025-06-06] MEDS: CHOLECALCIFEROL (VITAMIN D3) 25 MCG (1,000 UNITS) TABLET PO (09:07)
[2025-06-06] MEDS: SERTRALINE HCL 50 MG TABLET PO (09:07)
[2025-06-06] MEDS: CALCIUM CARBONATE (OSCAL) 500 MG TABLET PO (09:08)
[2025-06-06] MEDS: VALSARTAN 160 MG TABLET PO (09:08)
[2025-06-06] MEDS: SODIUM CHLORIDE 1 GM TABLET 2 GM PO (09:08)
[2025-06-06] MEDS: ENOXAPARIN 40 MG/0.4 ML SYRINGE SUB-Q (09:08)
[2025-06-06] MEDS: INSULIN ASPART (*BKC) 100 UNITS/ML SUB-Q (12:38)
--- NOTE | 2025-06-06 13:21 | PM.DS ---
DS: Admitting Diagnosis Discharge Date 06/06/2025 Admitting Diagnosis behavioral aggression DS: Discharge Diagnosis Discharge Diagnosis (1) Aggression: Code(s): R46.89 - Other symptoms and signs involving appearance and behavior Status: Acute DS: Summary Hospital Course Hospital Course: 85-year-old female with history of dementia. Used to live in a [facility] but was taken out to live at home. She is becoming increasingly aggressive and was brought in by family. During her hospital stay she was mostly calm. She was started on sodium chloride 2 g p.o. b.i.d. for hyponatremia and her sodium remained stable thereafter. She is discharged in stable condition on 06/06/2025 Two fdc. Time Spent with Patient Time attestation: Total time spent providing and/or coordinating discharge services: Exam Const: General: comfortable and no acute distress HENMT: Mouth: Yes moist mucous membranes Eyes: Pupils: Equal, round and reactive pupils present Resp: Effort & Inspection: normal respiratory effort Auscultation: clear to auscultation bilaterally Cardio: Rate: regular rate Rhythm: regular rhythm GI: Inspection: non-distended GI Palp: Yes Soft to palpation Extrem: General: no edema DS: Data Data Completed and Pending Labs on day of discharge: Labs from last 24 hours 06/06/25 06/06/25 06/05/25 11:38 07:31 20:56 POC Capillary Glucose 236 H 134 H 156 H 06/05/25 17:04 POC Capillary Glucose 141 H Discharge Plan Discharge Attending physician on discharge: Shanika Sanchez Consulting providers: Shavon Sood Discharging Clinician: Shanika Sanchez Patient Disposition: SNF Activity: march shower Diet: as tolerated Patient Language: [place] Stand Alone Forms: General Discharge Information Follow-up/Referrals: Tom Hernandez MD [Primary Care Provider] - Discharge Medications: New sodium chloride 1,000 mg Tablet,Soluble 2,000 mg PO BID Qty: 0 0RF Continued acetaminophen 500 mg capsule 500 mg PO Q6H PRN (Reason: fever or pain) melatonin 3 mg capsule 3 mg PO QHS cetirizine [Allergy Relief (cetirizine)] 10 mg tablet 10 mg PO DAILY PRN (Reason: allergy symptoms) calcium carbonate [Oyster Shell Calcium] 500 mg calcium (1,250 mg) tablet 500 mg PO DAILY metformin 500 mg tablet 500 mg PO BID Qty: 180 1RF pravastatin 20 mg tablet 20 mg BYMOUTH QHS Qty: 90 1RF valsartan 160 mg tablet See Rx Instructions .ROUTE .COMPLEX Qty: 90 1RF Dose Instruction: TAKE 1 TABLET DAILY Rx Instructions: TAKE 1 TABLET DAILY Symbicort 160-4.5 mcg/actuation HFA aerosol inhaler 2 puff INHALATION Q12H Qty: 10.2 5RF buspirone 10 mg tablet 10 mg PO TID Qty: 90 1RF sertraline 50 mg tablet 50 mg PO DAILY Qty: 90 1RF albuterol sulfate [ProAir HFA] 90 mcg/actuation Hfa Aerosol Inhaler 2 puff INHALATION QID PRN (Reason: Dyspnea) cholecalciferol (vitamin D3) [Vitamin D3] 25 mcg (1,000 unit) Capsule 25 mcg PO DAILY (DME) Diabetic Shoes 10.5 See Rx Instructions .Route .MEDSUPPLY Qty: 1 0RF Rx Instructions: Needs 1 pair of diabetic shoes. mecobalamin (vitamin B12) 1,000 mcg tablet,chewable 1,000 mcg PO DAILY Qty: 90 1RF (DME) OneTouch Ultra Test Strip See Rx Instructions .Route Qty: 100 3RF Rx Instructions: Check blood sugars once per day (DME) lancets 30 gauge misc See Rx Instructions .Route Qty: 100 3RF Rx Instructions: check blood sugars once per day (DME) blood-glucose meter Kit See Rx Instructions .Route Qty: 1 0RF Rx Instructions: As directed Date of admission: 05/29/25 16:39 Primary Care Provider: Tom Hernandez Admitting Provider: Rogelio Singer Attending physician on admission: Rogelio Singer Condition: Stable Hospitalist MIPS Heart Failure (Exclusion) Patient has history of Heart Transplant or Left Ventricular Assistive Device?: No IF YES, STOP HERE Heart Failure (Qualifier) Patient has current or prior documentation of LVEF less than or equal to 40%, or mod/servere depressed LVSF?: No IF NO, STOP HERE
[2025-06-06 13:42] VITALS: BP 110/57; PULSE 90; RESP 12; TEMP 36.7; O2SAT 99
== END 2025-06-06 14:55 | DRG 884 ==
LOC: ANHED 13:28 → ANH3MEDSUR 18:28 → ANH2MED 21:17
PROVIDERS: Hospitalist; Nurse Practitioner Adult Health; Physician Assistant; Admitting Provider Internal Medicine; Emergency Provider Emergency Medicine; PCP Internal Medicine; Visit Provider General Practice
DX: F03.911 Unspecified dementia, unspecified severity, with agitation (principal); E87.1 Hypo-osmolality and hyponatremia; J84.9 Interstitial pulmonary disease, unspecified; I10 Essential (primary) hypertension; J44.9 Chronic obstructive pulmonary disease, unspecified; E87.6 Hypokalemia; E11.9 Type 2 diabetes mellitus without complications; E04.2 Nontoxic multinodular goiter; E78.5 Hyperlipidemia, unspecified; E55.9 Vitamin D deficiency, unspecified; E53.8 Deficiency of other specified B group vitamins; R09.89 Other specified symptoms and signs involving the circulatory and respiratory systems; M85.80 Other specified disorders of bone density and structure, unspecified site; M19.90 Unspecified osteoarthritis, unspecified site; Z20.828 Contact with and (suspected) exposure to other viral communicable diseases; Z96.651 Presence of right artificial knee joint; Z87.891 Personal history of nicotine dependence
CPT/HCPCS: 36415; 71045; 80048; 80053; 81001; 82948; 83036; 83735; 83930; 83935; 85025; 87637; 94640; 97110; 97161; 97166; 97535; 99285; A9270; J1650; J1815; J3480; J7030; J7040